=== PATIENT | female | born 1950 | race Caucasian/White ===

== ENCOUNTER 2017-08-03 13:41 | Outpatient (POV) | payer MEDICARE, SELFPAY | END 2017-08-03 16:23 | disposition home or self-care (01) | PROVIDERS: Visit Provider Podiatrist | DX: S92.352D Displaced fracture of fifth metatarsal bone, left foot, subsequent encounter for fracture with routine healing (principal); M21.379 Foot drop, unspecified foot; E11.42 Type 2 diabetes mellitus with diabetic polyneuropathy; M19.072 Primary osteoarthritis, left ankle and foot; M19.071 Primary osteoarthritis, right ankle and foot | CPT/HCPCS: 99214; 73610; 73630 ==

== ENCOUNTER → 2017-09-06 09:07 | Outpatient (POV) | payer MEDICARE, SELFPAY | PROVIDERS: Visit Provider Nurse Practitioner Acute Care | DX: Z00.00 Encounter for general adult medical examination without abnormal findings (principal) ==

== ENCOUNTER → 2017-09-08 19:58 | Outpatient (CLI) | payer MEDICARE, SELFPAY | PROVIDERS: PCP Internal Medicine Cardiovascular Disease; Visit Provider Internal Medicine Adolescent Medicine | DX: G47.30 Sleep apnea, unspecified (principal); I10 Essential (primary) hypertension | CPT/HCPCS: 95810 ==

== ENCOUNTER 2017-10-11 11:21 | Day surgery (SDC) | payer MEDICARE, SELFPAY ==
[2017-10-07 14:29] VITALS: BMI 35.2
[2017-10-11] VITALS (7 sets, daily range): BP systolic 113–149; BP diastolic 66–90; PULSE 59–73; RESP 16–18; TEMP 36.5–37; O2SAT 98–100; BMI 35.2
--- NOTE | 2017-10-11 12:04 | HMH.ANESCL ---
[facility] Anesthesia Checklist - Patient Identification Patient Identification: Arm Band, Verbal (Name & ) - Structural Data Admitted From: Home Planned Operative Procedure/s: egd/colon Consent for Planned Operative Procedure(s) Verified: Yes Verified Documents: Surgical Consent, History and Physical - NPO Status Verified Time NPO: 00:00 - Additional verifications Patient : No Anesthesia Reactions: No Hx Blood Transfusions: No Blood Transfusion Reaction: No Cephalosporin Allergy: No Previous Colonoscopy: No - Cardiovascular Assessment Heart Sounds: S1 & S2 Pulse Strength: Baseline Pulse Rhythm: Regular Peripheral Edema: No - Airway Assessment C-Spine Mobility Assessed: Yes TMJ Mobility Assessed: Yes Dentition: Good Dentition - Neurological Assessment Level of Consciousness: Awake, Alert, Appropriate Hx Seizures: No Numbness or tingling in extremities: No - Anesthesia Plan Anesthesia Risk discussed: Yes Anesthesia Plan: Verified ASA Class: III Anesthesia Type: MAC [facility] Anesthesia HX I have reviewed the patient's past medical history: Yes Medical History: Reports:: Congestive Heart Failure, Diabetes Mellitus Type 2, Gastroesophageal Reflux Disease(GERD), Hyperlipidemia, Hypertension (pulmonary hyptertension), Lung Disease (sleep apnea, uses cpap) Denies:: Internal Pacemaker Other Surgeries: Yes: Dilation and Curettage, Tubal Ligation, Other (back fusionx3, cervical neck). No: Pacemaker Amputation: No Fractures: No *Family Hx:: Coronary Artery Disease, Heart Attack
--- NOTE | 2017-10-11 13:21 | HMH.PROC ---
[facility] Procedure Note Procedure Note:: Upper Endoscopy Procedure Report: Esophagogastroduodenoscopy with cold biopsies Endoscopost: Bernabe Stein II, MD Referring Physician: Shine Bassett M.D. Date of Procedure: October 11, 2017 Equipment: Olympus GIF 180 standard upper endoscope Sedation: MAC sedation Indications: Mrs. Shell is a 67-year-old female who is here for diagnostic panendoscopy secondary to iron deficiency anemia. She had a hemoglobin of 8.9. She does have renal insufficiency with a glomerular filtration rate of 28. She had fecal Hemoccult testing ?3 that was negative. She was referred for panendoscopy. Her last EGD was 10 years ago and her last colonoscopy was 3 years ago. She has not seen a neurologist to my knowledge. She had been followed by Dr. Nawaf Tang gastroenterology and had an ulcer found more than 20 years ago. She was placed on Prilosec/omeprazole at that time and has continued this as long-term maintenance. The patient's last colonoscopy was 3-4 years ago and she had polyps removed. The patient does take baby aspirin. She reports no NSAIDs or anticoagulation. She reports no heartburn, reflux, melena, abdominal pain, nausea, dysphagia, dyspepsia or weight loss. She reports no bright red rectal bleeding, change in her bowel habits or family history of colon cancer. Procedure: Prior to the procedure, a history and physical exam was performed, and patient's medications and allergies were reviewed. The risks, benefits and alternatives of the sedation and procedure were discussed with the patient. All questions were answered and informed consent was obtained. The patient was brought to the procedure room. Patient identification and proposed procedure were verified by the physician and the nurse. The patient was placed in a left lateral decubitus position and the scope was passed under direct vision. Throughout the procedure, the patient's blood pressure, pulse, and oxygen saturations were monitored continuously. The upper GI endoscopy was accomplished without difficulty. The patient tolerated the procedure well. Findings: The scope was passed directly into the upper esophagus and advanced to the third portion of the duodenum. The post bulbar duodenum and duodenal bulb were normal with normal mucosa and conniventes. Cold biopsies were taken from the post bulbar duodenum to rule out celiac disease. The scope was withdrawn through a normal duodenal bulb and pylorus into the stomach. There was bile reflux with mild linear reactive antritis. The remainder of the antrum, body and fundus of the stomach were grossly normal. Upon retroflexion there was very small 1-2 cm sliding hiatal hernia. There were no Addi's erosions.. 2 biopsies were taken in the antrum and along the lesser curvature for histology to rule out gastritis and/or H pylori. The scope was then withdrawn into the esophagus. There was no evidence of reflux esophagitis or Crocker's. The remainder of the esophageal mucosa was normal. Impression: 1. Minimal linear reactive antritis with bile reflux 2. Very small sliding hiatal hernia without Addi's erosions Plan: There was no source of anemia or iron deficiency. I will proceed with colonoscopy. Her Hemoccult testing is negative. Some of her anemia is likely related to anemia of renal insufficiency.
--- NOTE | 2017-10-11 13:25 | P.PCN_ITS ---
[facility] Procedure Note Procedure Note:: Upper Endoscopy Procedure Report: Esophagogastroduodenoscopy with cold biopsies Endoscopost: Bernabe Stein II, MD Referring Physician: Shine Bassett M.D. Date of Procedure: October 11, 2017 Equipment: Olympus GIF 180 standard upper endoscope Sedation: MAC sedation Indications: Mrs. Shell is a 67-year-old female who is here for diagnostic panendoscopy secondary to iron deficiency anemia. She had a hemoglobin of 8.9. She does have renal insufficiency with a glomerular filtration rate of 28. She had fecal Hemoccult testing ?3 that was negative. She was referred for panendoscopy. Her last EGD was 10 years ago and her last colonoscopy was 3 years ago. She has not seen a neurologist to my knowledge. She had been followed by Dr. Nawaf Tang gastroenterology and had an ulcer found more than 20 years ago. She was placed on Prilosec/omeprazole at that time and has continued this as long-term maintenance. The patient's last colonoscopy was 3- 4 years ago and she had polyps removed. The patient does take baby aspirin. She reports no NSAIDs or anticoagulation. She reports no heartburn, reflux, melena, abdominal pain, nausea, dysphagia, dyspepsia or weight loss. She reports no bright red rectal bleeding, change in her bowel habits or family history of colon cancer. Procedure: Prior to the procedure, a history and physical exam was performed, and patient' s medications and allergies were reviewed. The risks, benefits and alternatives of the sedation and procedure were discussed with the patient. All questions were answered and informed consent was obtained. The patient was brought to the procedure room. Patient identification and proposed procedure were verified by the physician and the nurse. The patient was placed in a left lateral decubitus position and the scope was passed under direct vision. Throughout the procedure, the patient's blood pressure, pulse, and oxygen saturations were monitored continuously. The upper GI endoscopy was accomplished without difficulty. The patient tolerated the procedure well. Findings: The scope was passed directly into the upper esophagus and advanced to the third portion of the duodenum. The post bulbar duodenum and duodenal bulb were normal with normal mucosa and conniventes. Cold biopsies were taken from the post bulbar duodenum to rule out celiac disease. The scope was withdrawn through a normal duodenal bulb and pylorus into the stomach. There was bile reflux with mild linear reactive antritis. The remainder of the antrum , body and fundus of the stomach were grossly normal. Upon retroflexion there was very small 1-2 cm sliding hiatal hernia. There were no Addi's erosions.. 2 biopsies were taken in the antrum and along the lesser curvature for histology to rule out gastritis and/or H pylori. The scope was then withdrawn into the esophagus. There was no evidence of reflux esophagitis or Crocker's. The remainder of the esophageal mucosa was normal. Impression: 1. Minimal linear reactive antritis with bile reflux 2. Very small sliding hiatal hernia without Addi's erosions Plan: There was no source of anemia or iron deficiency. I will proceed with colonoscopy. Her Hemoccult testing is negative. Some of her anemia is likely related to anemia of renal insufficiency.
--- NOTE | 2017-10-11 13:25 | HMH.PROC ---
[facility] Procedure Note Procedure Note:: Colonoscopy Procedure Report: Colonoscopy with cold snare polypectomy Endoscopist: Bernabe Stein II, MD Referring physician: Shine Bassett M.D. Date of Procedure: October 11, 2017 Equipment: Olympus 180 variable stiffness pediatric colonoscope Sedation: MAC sedation Indication: Mrs. Shell is a 67-year-old female who is here for diagnostic panendoscopy secondary to iron deficiency anemia. She had a hemoglobin of 8.9. She does have renal insufficiency with a glomerular filtration rate of 28. She had fecal Hemoccult testing ?3 that was negative. She was referred for panendoscopy. Her last EGD was 10 years ago and her last colonoscopy was 3 years ago. She has not seen a neurologist to my knowledge. She had been followed by Dr. Nawaf Tang gastroenterology and had an ulcer found more than 20 years ago. She was placed on Prilosec/omeprazole at that time and has continued this as long-term maintenance. The patient's last colonoscopy was 3-4 years ago and she had polyps removed. The patient does take baby aspirin. She reports no NSAIDs or anticoagulation. She reports no heartburn, reflux, melena, abdominal pain, nausea, dysphagia, dyspepsia or weight loss. She reports no bright red rectal bleeding, change in her bowel habits or family history of colon cancer. Procedure: Prior to the procedure, a history and physical exam was performed, and patient's medications and allergies were reviewed. The risks, benefits and alternatives of the sedation and procedure were discussed with the patient. All questions were answered and informed consent was obtained. The patient was brought to the procedure room. Patient identification and proposed procedure were verified by the physician and the nurse. The patient was placed in a left lateral decubitus position and the scope was passed under direct vision. Throughout the procedure, the patient's blood pressure, pulse, and oxygen saturations were monitored continuously. The colonoscopy was accomplished without difficulty. The patient tolerated the procedure well. Findings: On digital rectal examination there was normal rectal tone. There were no external hemorrhoids. The colonoscope was introduced through the anal canal to the rectum and advanced to the cecum. The ileocecal valve and appendiceal orifice were identified. The scope was advanced a short distance into the ileum which appeared grossly normal. The scope was then withdrawn into the colon. There were 6 colon polyps identified in the ascending ?3, descending ?2 and sigmoid ?1. These ranged in size from 5-12 mm and were all removed via cold snare polypectomy. The remaining cecum, ascending, transverse, descending, sigmoid and rectum were grossly normal. There were no other mucosal abnormalities identified. Upon retroflexion within the rectum there were grade 1 internal hemorrhoids. Impression: 1. Colonic polyps ?6 2. Grade 1 internal hemorrhoids Plan: I will follow up the polyp pathology and recommend repeat colonoscopy again in 3 years based upon the polyp histology. I did not see an etiology for her iron deficiency anemia. I do feel that most of her anemia is secondary to renal insufficiency. She is Hemoccult negative and I am not convinced that she requires video capsule enteroscopy. We will discuss the findings and if the patient has recurrent iron deficiency after repletion, I would then consider video capsule enteroscopy.
--- NOTE | 2017-10-11 13:40 | P.PCN_ITS ---
[facility] Procedure Note Procedure Note:: Colonoscopy Procedure Report: Colonoscopy with cold snare polypectomy Endoscopist: Bernabe Stein II, MD Referring physician: Shine Bassett M.D. Date of Procedure: October 11, 2017 Equipment: Olympus 180 variable stiffness pediatric colonoscope Sedation: MAC sedation Indication: Mrs. Shell is a 67-year-old female who is here for diagnostic panendoscopy secondary to iron deficiency anemia. She had a hemoglobin of 8.9. She does have renal insufficiency with a glomerular filtration rate of 28. She had fecal Hemoccult testing ?3 that was negative. She was referred for panendoscopy. Her last EGD was 10 years ago and her last colonoscopy was 3 years ago. She has not seen a neurologist to my knowledge. She had been followed by Dr. Nawaf Tang gastroenterology and had an ulcer found more than 20 years ago. She was placed on Prilosec/omeprazole at that time and has continued this as long-term maintenance. The patient's last colonoscopy was 3- 4 years ago and she had polyps removed. The patient does take baby aspirin. She reports no NSAIDs or anticoagulation. She reports no heartburn, reflux, melena, abdominal pain, nausea, dysphagia, dyspepsia or weight loss. She reports no bright red rectal bleeding, change in her bowel habits or family history of colon cancer. Procedure: Prior to the procedure, a history and physical exam was performed, and patient' s medications and allergies were reviewed. The risks, benefits and alternatives of the sedation and procedure were discussed with the patient. All questions were answered and informed consent was obtained. The patient was brought to the procedure room. Patient identification and proposed procedure were verified by the physician and the nurse. The patient was placed in a left lateral decubitus position and the scope was passed under direct vision. Throughout the procedure, the patient's blood pressure, pulse, and oxygen saturations were monitored continuously. The colonoscopy was accomplished without difficulty. The patient tolerated the procedure well. Findings: On digital rectal examination there was normal rectal tone. There were no external hemorrhoids. The colonoscope was introduced through the anal canal to the rectum and advanced to the cecum. The ileocecal valve and appendiceal orifice were identified. The scope was advanced a short distance into the ileum which appeared grossly normal. The scope was then withdrawn into the colon. There were 6 colon polyps identified in the ascending ?3, descending ?2 and sigmoid ?1. These ranged in size from 5-12 mm and were all removed via cold snare polypectomy. The remaining cecum, ascending, transverse, descending, sigmoid and rectum were grossly normal. There were no other mucosal abnormalities identified. Upon retroflexion within the rectum there were grade 1 internal hemorrhoids. Impression: 1. Colonic polyps ?6 2. Grade 1 internal hemorrhoids Plan: I will follow up the polyp pathology and recommend repeat colonoscopy again in 3 years based upon the polyp histology. I did not see an etiology for her iron deficiency anemia. I do feel that most of her anemia is secondary to renal insufficiency. She is Hemoccult negative and I am not convinced that she requires video capsule enteroscopy. We will discuss the findings and if the patient has recurrent iron deficiency after repletion, I would then consider video capsule enteroscopy.
[2017-10-21 14:59] LABS: POC Glucose,Bedside 142 mg/dL (70-110)
== END 2017-10-11 14:40 | disposition home or self-care (01) ==
LOC: OUTP 11:26
PROVIDERS: PCP Internal Medicine Cardiovascular Disease; Visit Provider Internal Medicine Gastroenterology
PROC: 0DJ08ZZ Inspection of Upper Intestinal Tract, Via Natural or Artificial Opening Endoscopic (ICD-10-PCS; CPT 43235; principal; 2017-10-11 12:30)
DX: K29.60 Other gastritis without bleeding (principal); K21.9 Gastro-esophageal reflux disease without esophagitis; K44.9 Diaphragmatic hernia without obstruction or gangrene; D50.9 Iron deficiency anemia, unspecified; N28.9 Disorder of kidney and ureter, unspecified; Z79.899 Other long term (current) drug therapy; Z79.82 Long term (current) use of aspirin
CPT/HCPCS: 43239; 82962; 88305; 88342

== ENCOUNTER → 2017-10-15 13:01 | Outpatient (CLI) | payer MEDICARE, SELFPAY ==
--- NOTE | 2017-10-15 13:13 | XR_ITS ---
XR DEXA axial skeleton HISTORY: ITS.REASON: POST MENOPAUSSAL ORDERING PHYSICIAN: Shine Bassett MD PATIENT AGE: 67 years COMPARISON: None FINDINGS: The spine density was not performed due to metal within the spine. The BMD measured at the Right femoral neck is 1.023 g/cm squared with a T score of -0.1. This is considered normal according to the World Health Organization criteria. Fracture risk is low. Recommend follow-up exam September 2019 IMPRESSION: Normal bone density
== END ==
PROVIDERS: PCP Internal Medicine Cardiovascular Disease; Visit Provider Internal Medicine Adolescent Medicine
DX: Z78.0 Asymptomatic menopausal state (principal); Z13.820 Encounter for screening for osteoporosis
CPT/HCPCS: 77080

== ENCOUNTER → 2018-03-22 10:51 | Outpatient (CLI) | payer MEDICARE, SELFPAY ==
--- NOTE | 2018-03-22 10:56 | MM_ITS ---
MM Dig screening mamm BI w/CAD ORDERING PHYSICIAN : Shine Bassett MD PATIENT AGE: 67 years GENDER: Female COMPARISON: December 2014 & January 2016 bilateral mammogram study also June 2012 INDICATION: ITS.REASON: SCREENING 67-year-old no hormones no new complaints noncontributory family history TECHNIQUE: Standard CC and MLO images were obtained. R2 CAD reviewed. Low-density breast with no new areas concern. No dominant mass nor suspicious calcification. Computer-assisted review highlights no areas of concern either. Bilateral follow-up in one year adequate . IMPRESSION: Stable bilateral mammogram no areas concern. Bilateral follow-up in one year recommended. BI-RADS Category: 1 Negative RECOMMENDED FOLLOW-UP: 1YR 1 YEAR FOLLOW-UP (A letter has been sent to the patient regarding results of the study.)
== END ==
PROVIDERS: PCP Internal Medicine Adolescent Medicine; Visit Provider Internal Medicine Adolescent Medicine
DX: Z12.31 Encounter for screening mammogram for malignant neoplasm of breast (principal)
CPT/HCPCS: 77067

== ENCOUNTER → 2018-09-06 10:50 | Outpatient (POV) | payer MEDICARE, SELFPAY | PROVIDERS: Visit Provider Dermatology | DX: Z00.00 Encounter for general adult medical examination without abnormal findings (principal) ==

== ENCOUNTER → 2018-09-27 11:38 | Outpatient (POV) | payer MEDICARE, SELFPAY | PROVIDERS: Visit Provider Dermatology | DX: Z00.00 Encounter for general adult medical examination without abnormal findings (principal) ==

== ENCOUNTER → 2018-11-29 14:14 | Outpatient (POV) | payer MEDICARE, SELFPAY | PROVIDERS: Visit Provider Dermatology | DX: Z00.00 Encounter for general adult medical examination without abnormal findings (principal) ==

== ENCOUNTER → 2019-06-09 10:57 | Outpatient (CLI) | payer MEDICARE, SELFPAY ==
--- NOTE | 2019-06-09 11:01 | MM_ITS ---
PROCEDURE: MM DIG SCREENING MAMM BI W/CAD CLINICAL INDICATION: SCREENING There is no personal or family history of breast cancer. COMPARISON: [facility] DIG MAMM-SCREEN LUISA from 01/09/2015 [facility] DIG MAMM-SCREEN LUISA from 02/13/2016 [facility] MM Dig screening mamm BI w/CAD from 03/22/2018 TECHNIQUE: Standard CC and MLO images were obtained. R2 CAD reviewed. FINDINGS: The breasts are composed primarily of fat with scattered fibroglandular densities in both breasts. There are multiple mole markers left breast. There is no suspicious lesion in either breast and no suspicious microcalcifications. IMPRESSION: Fibrofatty parenchyma with no suspicious lesions seen BI-RAD Category: 2 Benign Finding(s) FOLLOW-UP: 1YR 1 Year Follow-up (A letter has been sent to the patient regarding results of the study.) Dictated by: Dr. Giovanny Haskins MD 06/09/2019 11:[address] Giovanny Haskins MD in [place] 06/09/2019 11:47
== END ==
PROVIDERS: PCP Internal Medicine Adolescent Medicine; Visit Provider Internal Medicine Adolescent Medicine
DX: Z12.31 Encounter for screening mammogram for malignant neoplasm of breast (principal)
CPT/HCPCS: 77067

== ENCOUNTER → 2019-11-15 12:56 | Outpatient (CLI) | payer MEDICARE, SELFPAY ==
--- NOTE | 2019-11-15 12:57 | CA_ITS ---
APPROVED REPORT EXAM: Comprehensive 2D, Doppler, and color-flow Echocardiogram Educational [employer] Teacher: Becky Gudino RT(R) Ht: 5 ft 5 in Wt: 256lbs BSA: 2.20 BP: 140/54 mmHg Indications: edema, HTN, diabetes, SOB, RUBALCAVA, obesity 2D Dimensions LVOT 1.98 cm (M/F) 1.5-2.5 M-Mode Dimensions RVDd 2.96 cm (0.9-2.6) LVDd 4.94 cm (3.5-5.7) LVDs 3.69 cm (3.5-5.7) IVSd 1.06 cm (0.6-1.1) PWd 0.95 cm (0.6-1.1) EF (Teich) 49.70% FS 25.30% EDV (Teich) 115.00 mL ESV (Teich) 57.80 mL LV Diastology E/A Ratio 0.88 Mitral Valve MV A Velocity 81.00 (40-130 cm/s) Left Ventricle Left atrium is mildly enlarged, left ventricle is normal size, mild concentric left ventricular hypertrophy, visually estimated ejection fraction 55% with no regional wall motion abnormality. Grade 1 diastolic dysfunction seen without tissue Doppler evidence of raise left atrial pressure. Right Ventricle Right atrium and right ventricular normal size and contractility. Aortic Valve Aortic valve is grossly normal, there is no aortic stenosis or aortic insufficiency. Mitral Valve Mitral valve is grossly normal, there is no mitral stenosis, there is mild mitral regurgitation. Tricuspid Valve Tricuspid valve is grossly normal, there is mild tricuspid regurgitation. Tricuspid regurgitation jet velocity is inadequate for calculation of the right ventricular systolic pressure. Pulmonic Valve Pulmonic valve is poorly visualized. Great Vessels Aortic root is normal size. Pericardium No significant pericardial effusion noted. Conclusion 1. Mildly enlarged left atrium, normal left ventricular size, mild concentric left ventricular hypertrophy, visually estimated ejection fraction 55% with no regional wall motion abnormality, grade 1 diastolic dysfunction seen without tissue Doppler evidence of raise left atrial pressure. 2. Mild mitral and tricuspid regurgitation. 3. No significant pericardial effusion noted. Electronically signed by : Truong Burt, 11/17/2019 11:22:21
== END ==
PROVIDERS: PCP Internal Medicine Adolescent Medicine; Visit Provider Nurse Practitioner Family
DX: E11.9 Type 2 diabetes mellitus without complications (principal); G47.33 Obstructive sleep apnea (adult) (pediatric); I27.20 Pulmonary hypertension, unspecified; I50.9 Heart failure, unspecified; N18.2 Chronic kidney disease, stage 2 (mild); R06.00 Dyspnea, unspecified; R60.0 Localized edema; Z79.4 Long term (current) use of insulin
CPT/HCPCS: 93306

== ENCOUNTER → 2019-11-23 14:21 | Outpatient (CLI) | payer MEDICARE, SELFPAY ==
--- NOTE | 2019-11-23 14:23 | XR_ITS ---
PROCEDURE: XR CHEST 2V CLINICAL HISTORY: dyspnea COMPARISON: CXR CHEST(2 VIEWS-NOT PORTABLE) from 12/21/[address] [facility] [address] CHEST W/O CONTRAST from 05/14/2017 CXR CHEST(2 VIEWS-NOT PORTABLE) from 07/28/2017 FINDINGS: The cardiomediastinal silhouette and pulmonary vascularity are within normal limits. The lungs are clear without infiltrates, suspicious nodules, or pleural effusions. No acute bony abnormalities. IMPRESSION: No acute findings. Previously described pulmonary edema has resolved. Dictated by: Yared Trinh 11/23/2019 15:40 Electronically signed by Yared Trinh in [place] 11/23/2019 15:40
== END ==
PROVIDERS: PCP Internal Medicine Adolescent Medicine; Visit Provider Internal Medicine Cardiovascular Disease
DX: E11.9 Type 2 diabetes mellitus without complications (principal); G47.33 Obstructive sleep apnea (adult) (pediatric); I11.0 Hypertensive heart disease with heart failure; I27.20 Pulmonary hypertension, unspecified; I50.33 Acute on chronic diastolic (congestive) heart failure; N18.2 Chronic kidney disease, stage 2 (mild); R06.09 Other forms of dyspnea; R60.9 Edema, unspecified; Z79.4 Long term (current) use of insulin
CPT/HCPCS: 71046

== ENCOUNTER → 2020-06-12 11:06 | Outpatient (CLI) | payer MEDICARE, SELFPAY ==
[2020-06-12 12:35] VITALS: PULSE 71; PULSE 75
== END ==
PROVIDERS: PCP Internal Medicine Adolescent Medicine; Visit Provider Internal Medicine Hematology & Oncology
DX: R06.02 Shortness of breath (principal); N18.30 Chronic kidney disease, stage 3 unspecified; D63.1 Anemia in chronic kidney disease; D47.2 Monoclonal gammopathy; D50.9 Iron deficiency anemia, unspecified
CPT/HCPCS: 94060; 94640; 94726; 94729

== ENCOUNTER → 2020-07-24 10:03 | Outpatient (CLI) | payer MEDICARE, SELFPAY ==
[2020-07-24 10:45] LABS: Basophils % 0.5 % (0.1-2.0); Eosinophils # 0.6 K/mm3 (0.0-0.4); Eosinophils % 5.8 % (0.1-12.0); Hematocrit 35.6 % (37.0-47.0); Hemoglobin 11.3 g/dL (12.2-16.2); Lymphocytes # 2.2 K/mm3 (0.7-4.5); Lymphocytes % 23.1 % (10-50); Mean Corpuscular HGB Conc 31.6 g/dL (31.8-35.4); Mean Corpuscular Hemoglobin 30.8 pg (27.0-31.2); Mean Corpuscular Volume 97.3 fl (81-99); Mean Platelet Volume 7.9 fl (7.4-10.4); Monocytes # 0.6 K/mm3 (0.1-1.0); Monocytes % 5.9 % (1.7-9.3); Neutrophils # 6.2 K/mm3 (1.8-7.8); Neutrophils % 64.8 % (37.0-80.0); Platelet Count 392 K/mm3 (142-424); Red Blood Count 3.66 M/mm3 (4.20-5.40); Red Cell Distribution Width 13.6 % (11.5-17.5); White Blood Count 9.5 K/mm3 (4.8-10.8)
[2020-07-24 12:09] LABS: Chloride 107 mmol/L (98-107); Potassium 5.1 mmoL/L (3.5-5.1); Sodium 140 mmol/L (136-145)
[2020-07-24 12:12] LABS: Blood Urea Nitrogen 40 mg/dl (7-17); Estimated Glomerular Filt Rate 24 ml/min (>60); GFR (African American) 30 ML/MIN (>60)
[2020-07-24 12:13] LABS: Anion Gap 10.1 mEq/L (5-15); Calcium 9.4 mg/dl (8.4-10.2); Carbon Dioxide 28 mmol/L (22.0-30.0); Glucose 134 mg/dl (74-100)
[2020-07-24 12:28] LABS: Coronavirus 19 IgG Antibody Negative (Negative); Coronavirus 19 IgM Antibody Negative (Negative)
== END ==
PROVIDERS: Visit Provider Internal Medicine
DX: Z01.818 Encounter for other preprocedural examination (principal); I25.10 Atherosclerotic heart disease of native coronary artery without angina pectoris
CPT/HCPCS: 36415; 80048; 85025; 86328

== ENCOUNTER → 2020-07-26 07:19 | Outpatient (CLI) | payer MEDICARE, SELFPAY ==
--- NOTE | 2020-07-26 07:23 | CT_ITS ---
PROCEDURE: CT CHEST WO CON CLINICAL INDICATION: dyspnea Dyspnea, edema, worsening shortness of air COMPARISON: [facility] CT CHEST W/O CONTRAST from 05/14/2017 TECHNIQUE: Axial images obtained with sagittal and coronal reformats. All CT scans at the facility use one or more dose reduction, viz: automated exposure control, ma/kV adjustment per patient size (including targeted exams where dose is matched to indication, i.e. head), or iterative reconstruction technique. FINDINGS: HEART AND MEDIASTINAL STRUCTURES: There is heterogeneous areas of low density in the left lobe of the thyroid gland which is enlarged with areas of decreased attenuation measuring up to 2.4 cm. There is mild deviation of the trachea toward the right. No mediastinal mass is evident. There is mild dilatation of the proximal descending thoracic aorta at 3.6 cm. This does not appear significantly changed. Coronary artery calcifications are present. There is some mild thickening of the pericardium LUNGS AND PLEURAL SPACES: There is a new 5 mm nodule within the central aspect of the right upper lobe which is seen on series 3, image 34. This is not readily apparent on the previous study. Patchy atelectatic changes are present in the right lower lobe medially adjacent to a prominent thoracic spine osteophytes. There are mild atelectatic changes in the left lower lobe posteriorly BONY STRUCTURES: There are degenerative changes in the thoracic spine and postsurgical changes in the upper lumbar spine. UPPER ABDOMEN: Multiple hepatic cysts are once again noted. Several of the up attic cysts are some larger. For instance, the largest cyst in the right hepatic lobe measures 8 cm previously measuring 5 cm ADDITIONAL FINDINGS: No other significant abnormalities. IMPRESSION: There is a new 5 mm noncalcified nodule in the right middle lobe centrally. Recommend 3 month follow-up to confirm short term stability. Enlarging hypodense lesion of the left lobe of the thyroid gland. Consider ultrasound for further evaluation. Other nonacute findings as described above. Dictated by: Marvin Jones MD 07/29/2020 13:33 Marvin Jones MD in [place] 07/29/2020 13:33
== END ==
PROVIDERS: PCP Internal Medicine Adolescent Medicine; Visit Provider Internal Medicine
DX: E11.9 Type 2 diabetes mellitus without complications (principal); G47.33 Obstructive sleep apnea (adult) (pediatric); I11.0 Hypertensive heart disease with heart failure; I27.20 Pulmonary hypertension, unspecified; I50.33 Acute on chronic diastolic (congestive) heart failure; N18.2 Chronic kidney disease, stage 2 (mild); R06.09 Other forms of dyspnea; R60.9 Edema, unspecified; Z79.4 Long term (current) use of insulin
CPT/HCPCS: 71250

== ENCOUNTER → 2020-09-02 14:08 | Outpatient (CLI) | payer MEDICARE, SELFPAY ==
--- NOTE | 2020-09-02 14:27 | US_ITS ---
PROCEDURE: US THYROID CLINICAL INDICATION: THYROID NODULE COMPARISON: CT CT CHEST WO CON from 07/26/2020 FINDINGS: Right lobe: 1.5cm x 4.0cm x 2.3cm Left lobe: 2.5cm x 5.1cm x 3.5cm Isthmus: Thickened at 9 mm with heterogeneous echogenicity Additional findings: There is diffuse heterogeneous echogenicity the thyroid gland on both sides with multiple nodules. The upper pole on the right there is a 2.4 x 1.2 cm nodule spongiform in nature TR level 1 not suspicious.. An 8 mm hypoechoic nodule noted in the upper pole. In the lower pole there is a mixed nodule at 9 mm. On the left there is a 10 mm spongiform nodule in the upper pole. In the mid polar region there is a 2.2 x 1.4 cm solid-appearing nodule slightly hyperechoic well-circumscribed without calcifications T rads level 3 less than 2.5 cm mildly suspicious recommend six-month follow-up. In addition there is a 2.8 by 3 cm mixed nodule mostly cystic in the mid polar region well-circumscribed without calcifications wider than tall TR 2 not suspicious. IMPRESSION: Bilateral thyroid nodules as described above. The mildly suspicious nodule on the left at TR level 3. Recommend six-month follow-up. Dictated by: Marvin Jones MD 09/04/2020 12:46 Marvin Jones MD in [place] 09/04/2020 12:46
[2020-09-02 18:22] LABS: NT Pro Brain Natriuretic Pep. 1810 pg/mL (0-125)
[2020-09-03 12:33] LABS: Chloride 103 mmol/L (98-107)
[2020-09-03 12:34] LABS: Basophils # 0.1 K/mm3 (0-0.2); Basophils % 0.9 % (0.1-2.0); Eosinophils # 0.4 K/mm3 (0.0-0.4); Eosinophils % 3.7 % (0.1-12.0); Hemoglobin 12.1 g/dL (12.2-16.2); Lymphocytes # 2.6 K/mm3 (0.7-4.5); Mean Corpuscular HGB Conc 30.9 g/dL (31.8-35.4); Mean Corpuscular Hemoglobin 31.6 pg (27.0-31.2); Mean Corpuscular Volume 102.5 fl (81-99); Mean Platelet Volume 9.7 fl (7.4-10.4); Monocytes # 0.4 K/mm3 (0.1-1.0); Monocytes % 3.9 % (1.7-9.3); Neutrophils # 7.8 K/mm3 (1.8-7.8); Neutrophils % 68.5 % (37.0-80.0); Platelet Count 395 K/mm3 (142-424); Potassium 4.6 mmoL/L (3.5-5.1); Red Blood Count 3.81 M/mm3 (4.20-5.40); Red Cell Distribution Width 13.4 % (11.5-17.5); Sodium 139 mmol/L (136-145); White Blood Count 11.4 K/mm3 (4.8-10.8)
[2020-09-03 12:36] LABS: Alanine Aminotransferase 14 U/L (12-78); Alkaline Phosphatase 133 U/L (38-126); Aspartate Amino Transferase 20 U/L (14-36); Bilirubin,Total 0.6 mg/dl (0.2-1.3); Blood Urea Nitrogen 48 mg/dl (7-17); Estimated Glomerular Filt Rate 23 ml/min (>60); GFR (African American) 28 ML/MIN (>60)
[2020-09-03 12:37] LABS: Albumin Level 4.1 g/dl (3.5-5.0); Albumin/Globulin Ratio 1.3 (1.1-1.8); Anion Gap 11.6 mEq/L (5-15); Calcium 9.7 mg/dl (8.4-10.2); Carbon Dioxide 29 mmol/L (22.0-30.0); Globulin 3.1 g/dL (1.3-3.2); Glucose 224 mg/dl (74-100); Total Protein,Serum 7.2 g/dl (6.3-8.2)
[2020-09-03 13:49] LABS: Triiodothryronine (T3) Uptake 32 % (23.5-40.5)
[2020-09-03 13:50] LABS: Free Thyroxine Index 1.6 ug/dL (5.93-13.13)
[2020-09-03 14:04] LABS: Thyroid Stimulating Hormone 1.46 uIU/mL (0.465-4.68)
== END ==
PROVIDERS: Internal Medicine Cardiovascular Disease; PCP Internal Medicine Adolescent Medicine; Visit Provider Internal Medicine Adolescent Medicine
DX: E11.9 Type 2 diabetes mellitus without complications (principal); G47.33 Obstructive sleep apnea (adult) (pediatric); I11.9 Hypertensive heart disease without heart failure; N18.2 Chronic kidney disease, stage 2 (mild); R06.00 Dyspnea, unspecified; R60.9 Edema, unspecified; I27.20 Pulmonary hypertension, unspecified; I50.9 Heart failure, unspecified; E04.1 Nontoxic single thyroid nodule; Z79.4 Long term (current) use of insulin
CPT/HCPCS: 36415; 76536; 80053; 83880; 84436; 84443; 84479; 85025

== ENCOUNTER → 2020-10-28 10:57 | Outpatient (CLI) | payer MEDICARE, SELFPAY ==
--- NOTE | 2020-10-28 10:57 | CT_ITS ---
PROCEDURE: CT CHEST WO CON CLINICAL INDICATION: ILD High resolution scan COMPARISON: CT [facility] CT CHEST W/O CONTRAST from 05/14/[address] CHEST WO CON from 07/26/2020 TECHNIQUE: Axial images obtained with sagittal and coronal reformats. All CT scans at the facility use one or more dose reduction, viz: automated exposure control, ma/kV adjustment per patient size (including targeted exams where dose is matched to indication, i.e. head), or iterative reconstruction technique. FINDINGS: Coronary artery calcifications are present. No mediastinal or hilar mass. Borderline cardiomegaly. Minimal pericardial thickening anteriorly. There is a left thyroid nodule which measures 2.8 cm not significantly changed. There is evidence of old granulomatous disease. A 6 mm noncalcified nodule present in the right upper lobe in the perihilar region unchanged. The nodule appears slightly more prominent compared to the previous exam. This may be too small to be visualized by PET CT. Close follow-up is suggested. There is mild pleural thickening in the right midlung laterally. There is some scarring in the right lung base medially and posteriorly and in the left lung base laterally. High-resolution inspiration expiration and prone images are obtained. Fibrotic changes are present in the lung bases with some minimal bronchiectasis in the lower lobes medially. No significant interlobular septal thickening apparent. Upper abdominal images show multiple hepatic cysts and left renal cysts. The right kidney is not imaged. There are degenerative changes in the thoracic spine. Postsurgical changes are present in the upper lumbar spine.. IMPRESSION: 1. No convincing evidence of interstitial lung disease. 2. Fibrotic changes in the lung bases with some mild bronchiectasis in the posterior basilar segments of both lower lobes. 3. 6 mm right upper lobe pulmonary nodule which appears slightly more prominent. This nodule was not present on a older exam of 05/14/2017. Neoplasm or inflammatory nodule is considered. Close follow-up recommended. Dictated by: Marvin Jones MD 10/30/2020 10:01 Marvin Jones MD in [facility] 10/30/2020 10:01
== END ==
PROVIDERS: PCP Internal Medicine Adolescent Medicine; Visit Provider Internal Medicine Pulmonary Disease
DX: J98.4 Other disorders of lung (principal)
CPT/HCPCS: 71250

== ENCOUNTER → 2020-12-10 14:07 | Outpatient (POV) | payer MEDICARE, SELFPAY | PROVIDERS: Visit Provider Dermatology | DX: Z00.00 Encounter for general adult medical examination without abnormal findings (principal) ==

== ENCOUNTER → 2020-12-16 10:23 | Outpatient (CLI) | payer MEDICARE, SELFPAY ==
--- NOTE | 2020-12-16 10:27 | XR_ITS ---
PROCEDURE: XR DEXA AXIAL SKELETON CLINICAL HISTORY: POST-MENOPAUSAL, SCREENING COMPARISON: [facility] DEXAAX XR DEXA axial skeleton from 10/15/2017 FINDINGS: The right hip BMD is 0.854 with a T-score of 0.0. The left hip BMD is 0.976 with a T-score of 0.3. The left forearm BMD is 0.654 with a T-score of -0.7. Previously the lowest density was in the right femoral neck with a T-score of -0.1. IMPRESSION: This patient is considered normal according to the World Health Organization criteria. Fracture risk is low. Based on these results a follow-up exam is recommended in 2 year. Dictated by: Marvin Jones MD 12/17/2020 06:24 Marvin Jones MD in [facility] 12/17/2020 06:24
== END ==
PROVIDERS: PCP Internal Medicine Adolescent Medicine; Visit Provider Internal Medicine Adolescent Medicine
DX: Z78.0 Asymptomatic menopausal state (principal)
CPT/HCPCS: 77080

== ENCOUNTER 2021-01-18 09:04 | Emergency (ER) | payer MEDICARE, SELFPAY ==
[2021-01-18] VITALS (7 sets, daily range): BP systolic 126–178; BP diastolic 43–61; PULSE 59–65; RESP 18; TEMP 36.7; O2SAT 94–100; BMI 39.4
--- NOTE | 2021-01-18 09:14 | ECG_ITS ---
APPROVED REPORT Exam: Resting ECG HR:62 bpm ECG Measurements Heart Rate 62 AXES WY 178 P 5 QRSd 96 QRS -28 QT 432 T 33 QTc 438 Conclusion Normal sinus rhythm LVH with LAFB Abnormal ECG Electronically signed by : Shine Bassett, 01/19/2021 07:54:01
--- NOTE | 2021-01-18 09:22 | HMH.EDGENADL ---
ED Disposition Clinical Impression: Vertigo Disposition: Home, Self-Care Condition on Discharge: Fair Instructions: DI for Vertigo Additional Instructions: Meclizine and Valium as prescribed. Stand and walk carefully, hold onto objects/montes to support himself. Return to the emergency room if symptoms worsen, unable to ambulate. Follow-up with your primary care provider on Wednesday. Additional instructions for CONTROLLED SUBSTANCES: You have been prescribed a medication that is a controlled substance. Controlled substances include pain medications known as opiates and sedative nerve medications known as benzodiazepines. Tramadol, fioricet, and gabapentin are also controlled substances. Some common opiates include: Codeine (such as Tylenol #3) Hydrocodone (Vicodin, Lortab, Lorcet, [place]) Oxycodone (Percocet, Percodan, Oxycodone, Oxy IR) Some common benzodiazepines include: Diazepam (Valium) Lorazepam (Ativan) Alprazolam (Xanax) Clonazepam (Klonopin) Oxazepam (Serax) All of these controlled substances are highly addictive and frequently abused. Misuse can and frequently does lead to addiction as well as overdose and . Medication should be stored in a locked cabinet or other secure storage unit. Do not store the medication in a motor vehicle. Short term supplies, 3 days or less, are prescribed because of the highly addictive nature of the medication. Any of the controlled substance medication NOT taken should be disposed of properly and NOT SAVED. The recommended method of disposing of unused medications is: Place the medicines in a sealable plastic bag. If the medicine is a solid, crush it or add water to dissolve it. Add something undesirable (cat litter, coffee grounds, etc.) Dispose of sealed bag in household trash Do not flush or pour unused medicines down a sink or drain. Controlled substances should not be shared, given away or sold. Because of the addictive nature and frequent abuse, these medications are sometimes stolen. These medications should be kept in a safe place where they cannot be stolen. Do not keep them in your car or purse. Lost or stolen prescriptions for controlled substances WILL NOT BE REFILLED in this emergency department, regardless of whether a police report was filed. Prescriptions: Meclizine HCl [Antivert 25mg tablet] 25 mg PO TIDP PRN #15 tab PRN Reason: Vertigo Transmission Status: Pending to Mobile Location, IP #[id number] diazePAM [Diazepam 2mg tablets] 2 mg PO TIDP PRN #15 tab PRN Reason: Vertigo Transmission Status: Received by Mobile Location, IP #[id number] Referrals: Shine Bassett MD [Primary Care Provider] - - Critical Care Critical Care Time: No Attestation: On 01/18/21, the high probability of a clinically significant, sudden or life threatening deterioration of the following system(s) required my full and direct attention, intervention and personal management. The time I documented below is in addition to time spent performing reported procedures but includes the following listed in this critical care notation. Medical Decision Making - Andrae Inquiry Pt receiving controlled substance: Yes Andrae was queried for this patient: Yes Risks and benefits of using a controlled substance: were discussed with pt by me Vital Signs: 01/18/21 09:06 01/18/21 09:30 01/18/21 09:31 Temperature 98.1 F Temperature Source Oral Pulse Rate 61 62 Pulse Rate [Left Radial] 65 Respiratory Rate 18 Blood Pressure 149/61 H Blood Pressure [Right Arm] 178/60 H Blood Pressure Mean [Right Arm] 99 02 Sat by Pulse Oximetry 100 96 96 Oxygen Delivery Method Room Air Room Air 01/18/21 10:02 01/18/21 10:30 01/18/21 10:45 Temperature Temperature Source Pulse Rate 64 59 L 60 Pulse Rate [Left Radial] Respiratory Rate Blood Pressure 126/43 L 128/51 L 134/55 L Blood Pressure [Right Arm] Blood Pressure Mean [Right Arm] 02 Sat by Pul
--- NOTE | 2021-01-18 09:28 | XR_ITS ---
PROCEDURE INFORMATION: Exam: XR Chest Exam date and time: 01/18/2021 9:28 AM Age: 70 years old Clinical indication: Other: Dizziness TECHNIQUE: Imaging protocol: XR of the chest. Views: 2 views. COMPARISON: CT CHEST WO CON 10/28/2020 11:07 AM FINDINGS: Lungs: No consolidation. Pleural spaces: No pleural effusion. No pneumothorax. Heart/Mediastinum: The heart is upper limits of normal in size. Vasculature: The aorta is slightly tortuous. Bones/joints: There is limited assessment of lumbar spinal surgery. There are degenerative changes of the spine. IMPRESSION: There is no evidence of active pulmonary disease.
[2021-01-18 09:36] LABS: Basophils # 0.1 K/mm3 (0-0.2); Basophils % 0.5 % (0.1-2.0); Eosinophils # 0.4 K/mm3 (0.0-0.4); Hematocrit 30.4 % (37.0-47.0); Hemoglobin 10.4 g/dL (12.2-16.2); Lymphocytes # 2.5 K/mm3 (0.7-4.5); Lymphocytes % 23.3 % (10-50); Mean Corpuscular Hemoglobin 31.7 pg (27.0-31.2); Mean Corpuscular Volume 93.3 fl (81-99); Mean Platelet Volume 8.5 fl (7.4-10.4); Monocytes # 0.6 K/mm3 (0.1-1.0); Monocytes % 5.2 % (1.7-9.3); Platelet Count 381 K/mm3 (142-424); Red Blood Count 3.26 M/mm3 (4.20-5.40); Red Cell Distribution Width 13.6 % (11.5-17.5); White Blood Count 10.5 K/mm3 (4.8-10.8)
[2021-01-18 09:41] LABS: Anion Gap 11.8 mEq/L (5-15); Blood Urea Nitrogen 62 mg/dl (7-17); Calcium 8.9 mg/dl (8.4-10.2); Carbon Dioxide 25 mmol/L (22.0-30.0); Chloride 106 mmol/L (98-107); Creatinine Clearance Estimated 31 mL/min (50-200); Estimated Glomerular Filt Rate 17 ml/min (>60); GFR (African American) 21 ML/MIN (>60); Glucose 116 mg/dl (74-100); Potassium 4.8 mmoL/L (3.5-5.1); Sodium 138 mmol/L (136-145)
--- NOTE | 2021-01-18 09:45 | CT_ITS ---
PROCEDURE INFORMATION: Exam: CT Head Without Contrast Exam date and time: 01/18/2021 9:45 AM Age: 70 years old Clinical indication: Patient HX: Dizziness and nausea x 3days TECHNIQUE: Imaging protocol: Computed tomography of the head without contrast. Radiation optimization: All CT scans at this facility use at least one of these dose optimization techniques: automated exposure control; mA and/or kV adjustment per patient size (includes targeted exams where dose is matched to clinical indication); or iterative reconstruction. COMPARISON: No relevant prior studies available. FINDINGS: Brain: There is white matter hypodensity most consistent with chronic small vessel ischemic change. There are small foci of low attenuation in the basal ganglia bilaterally related to chronic lacunar infarctions. Cerebral ventricles: The ventricles and CSF spaces are normal in size for age. Paranasal sinuses: Visualized sinuses are unremarkable. No fluid levels. Mastoid air cells: Visualized mastoid air cells are well aerated. Vasculature: There is atherosclerotic disease involving the vertebral basilar system and cavernous ICAs. Bones/joints: No acute fracture. Soft tissues: Unremarkable. IMPRESSION: 1. Sequela prior small vessel ischemic changes. 2. No acute intracranial
[2021-01-18 09:54] LABS: Troponin I < 0.01 ng/ml (0.00-0.034)
--- NOTE | 2021-01-18 10:00 | PC.NURSE ---
Pt returned from rad.
--- NOTE | 2021-01-18 11:20 | PC.NURSE ---
Pt's sister is on her way to pick pt up.
== END 2021-01-18 11:32 | disposition home or self-care (01) ==
PROVIDERS: Emergency Provider Emergency Medicine; PCP Internal Medicine Adolescent Medicine
DX: R42 Dizziness and giddiness (principal); E11.9 Type 2 diabetes mellitus without complications; N18.30 Chronic kidney disease, stage 3 unspecified; K21.9 Gastro-esophageal reflux disease without esophagitis; E78.5 Hyperlipidemia, unspecified; I10 Essential (primary) hypertension; Z79.899 Other long term (current) drug therapy
CPT/HCPCS: 70450; 71046; 80048; 84484; 85025; 93005; 96374; 96375; 99282; J2405

== ENCOUNTER → 2021-01-23 10:21 | Outpatient (CLI) | payer MEDICARE, SELFPAY ==
[2021-01-23 11:57] LABS: Erythrocyte Sedimentation Rate > 140 mm/hr (0-30); Uric Acid 6.8 mg/dl (2.5-6.2)
[2021-01-23 12:02] LABS: C-Reactive Protein 17.5 mg/L (0-4)
[2021-01-23 12:08] LABS: NT Pro Brain Natriuretic Pep. 1380 pg/mL (0-125)
[2021-01-24 11:16] LABS: RA Latex Turbid. <10.0 IU/mL (0.0-13.9)
[2021-01-24 13:52] LABS: Sjogren's Anti-SS-A <0.2 AI (0.0-0.9); Sjogren's Anti-SS-B <0.2 AI (0.0-0.9)
[2021-01-24 17:32] LABS: Cytoplasmic (C-ANCA) <1:20 titer (Neg:<1:20); Perinuclear (P-ANCA) <1:20 titer (Neg:<1:20)
[2021-01-25 18:59] LABS: Antinuclear Antibodies, IFA Negative (.)
[2021-02-09 10:52] LABS: Antinuclear Antibodies (ANA) NEGATIVE
== END ==
PROVIDERS: Internal Medicine Pulmonary Disease; PCP Internal Medicine Adolescent Medicine; Visit Provider Internal Medicine Cardiovascular Disease
DX: E11.9 Type 2 diabetes mellitus without complications (principal); G47.33 Obstructive sleep apnea (adult) (pediatric); I11.9 Hypertensive heart disease without heart failure; I27.20 Pulmonary hypertension, unspecified; I50.9 Heart failure, unspecified; N18.2 Chronic kidney disease, stage 2 (mild); R06.00 Dyspnea, unspecified; R42 Dizziness and giddiness; R60.9 Edema, unspecified; J84.9 Interstitial pulmonary disease, unspecified; J98.4 Other disorders of lung; Z79.84 Long term (current) use of oral hypoglycemic drugs
CPT/HCPCS: 36415; 83880; 84550; 85651; 86038; 86140; 86235; 86256; 86431; 93225

== ENCOUNTER → 2021-02-10 10:34 | Outpatient (CLI) | payer MEDICARE, SELFPAY ==
--- NOTE | 2021-02-10 10:35 | CA_ITS ---
APPROVED REPORT EXAM: Comprehensive 2D, Doppler, and color-flow Echocardiogram Wildlife And Game Protector: Zuleyma Galicia RVT Ht: 5 ft 5 in Wt: 249lbs BSA: 2.17 BP: 140/50 mmHg Indications: RUBALCAVA,HTN,HLD,GERD,CHF 2D Dimensions LVOT 2.18 cm (M/F) 1.5-2.5 LA Volume 51.90 mL LA Volume Index 23.91 mL/m2 (M/F) 16-34 M-Mode Dimensions RVDd 3.05 cm (0.9-2.6) LA Diam 4.40 cm (1.9-4.0) LVDd 5.98 cm (3.5-5.7) Ao Diam 3.07 cm (2.0-3.7) LVDs 3.17 cm (3.5-5.7) IVSd 1.16 cm (0.6-1.1) PWd 0.76 cm (0.6-1.1) EF (Teich) 77.60% FS 47.00% EDV (Teich) 178.60 mL TAPSE 2.60 (<1.7) ESV (Teich) 40.00 mL LV Diastology E Decel Time 263.00 (160-240 msec) E/A Ratio 1.8 MED E' 7.90 (< 7 cm/sec) E'/MED E' Ratio 16.49 (>14) LAT E' 8.50 (<10 cm/sec) E/LAT E' Ratio 15.33 (>14) Aortic Valve AO Peak GR. 7.40 mmHg Mitral Valve MV E Max Cl. 130.00 (40-130 cm/s) MV A Velocity 72.00 (40-130 cm/s) E/A Ratio 1.81 MV Decel. Time 263.00 (160-240 ms) MV PHT 77.00 ms Pulmonary Valve PV Peak Velocity 100.00 (50-150 cm/s) Left Ventricle Left atrium is mildly enlarged, left ventricle is normal size, mild concentric left ventricular hypertrophy, visually estimated ejection fraction 55% with no regional wall motion abnormality, grade 2 diastolic dysfunction seen with tissue Doppler evidence of raise left atrial pressure. Right Ventricle Right atrium right ventricle mildly enlarged with normal contractility. Aortic Valve Aortic valve is minimally thickened and fibrosed, there is no aortic stenosis or aortic insufficiency. Mitral Valve Mitral valve is grossly normal, there is mild mitral regurgitation. Tricuspid Valve Tricuspid grossly normal, there is mild tricuspid regurgitation, tricuspid regurgitation jet velocity is inadequate for calculation of the right ventricular systolic pressure. Pulmonic Valve Pulmonic valve is poorly visualized. Great Vessels Aortic root is normal size. Pericardium No significant pericardial effusion noted. Conclusion 1. Mild biatrial alignment, normal left ventricular size, mild concentric left ventricular hypertrophy, visually estimated ejection fraction 55% with no regional wall motion abnormality, grade 2 diastolic dysfunction seen with tissue Doppler evidence of raised left atrial pressure. 2. Mild mitral and tricuspid regurgitation. 3. No significant pericardial effusion noted. Electronically signed by : Truong Burt, 02/10/2021 22:11:14
== END ==
PROVIDERS: PCP Internal Medicine Adolescent Medicine; Visit Provider Internal Medicine Cardiovascular Disease
DX: E11.9 Type 2 diabetes mellitus without complications (principal); G47.33 Obstructive sleep apnea (adult) (pediatric); I11.9 Hypertensive heart disease without heart failure; I27.20 Pulmonary hypertension, unspecified; I50.9 Heart failure, unspecified; N18.2 Chronic kidney disease, stage 2 (mild); R06.00 Dyspnea, unspecified; R42 Dizziness and giddiness; R60.9 Edema, unspecified
CPT/HCPCS: 93306

== ENCOUNTER → 2021-02-17 06:18 | Outpatient (CLI) | payer MEDICARE, SELFPAY ==
--- NOTE | 2021-02-17 | CA_ITS ---
APPROVED REPORT Exam: Pharmacologic Technologist: Karolyn Morgan, Ht: 5 ft 5 in Wt: 249 lbs BSA: 2.17 m2 HR: 65 bpm BP: 140/49 mmHg Medical History Medications: Amlodipine,,,,, Aspirin,,,,, Atenolol,,,,, Effexor,,,,, Gabapentin,,,,, Allopurinol,,,,, Lipitor,,,,, Tramadol,,,,, Januvia,,,,, Meclizine,,,,, Multivitamin,,,,, Isosorbide Monoitrate ER,,,,, Stress Test Details Test: LEXISCAN HR Resting HR: 65 bpm Max Heart Rate (APMHR): 148.587593 bpm Max HR Achieved: 76 bpm Target HR (85% APMHR): 125.216818 bpm % of APMHR: 51.35 Recovery HR: 67 bpm BP Resting BP: 140/49 mmHg Max BP: 145/53 mmHg Recovery BP: 145.0/53.0 mmHg ECG Clinical Exercise duration: 04:00 min Highest Stage Achieved: Exercise capacity: 1.0 METs Stress ECG Conclusion Symptoms: SOA. No CP. Arrythmias/Ectopy: None. Artifact noted. ST-T Changes: <1.5mm ST segment changes. Test Summary REST . . . . . . . Resting REST 07:11 . . 65 . 140/ 49 . . Stage 1 . . . . . . . Cardiolite injected Stage 1 01:00 . . 74 . . . . Stage 2 01:00 . . 70 . . . . Stage 3 01:00 . . 69 . 121/ 42 . . Stage 4 01:00 . . 68 . 131/ 51 . Stop exercise at 04:00 RECOVERY 01:00 . . 68 . . . . RECOVERY 02:00 . . 70 . 121/ 62 . . RECOVERY 03:00 . . 67 . 121/ 62 . . RECOVERY 03:42 . . 67 . 145/ 53 . . Electronically signed by : Truong Burt, 02/17/2021 18:42:07
--- NOTE | 2021-02-17 06:18 | NM_ITS ---
APPROVED REPORT Exam: Nuclear Stress Test Indication: SOB, Fatigue, HTN, DM, High cholesterol, Family history Patient Location: Outpatient Stress Tech: Karolyn Morgan LA Tech:Tatiana Banegas, ARRT, RT (R)(N) Ht: 5 ft 6 in Wt: 235 lbs Bra Size: C HR: 65 bpm BP: 140/49 mmHg BSA: 2.14 m2 BMI: 37.9 History: SOB, Fatigue, HTN, DM, High cholesterol, Family history Procedure: Patient received a 0.4 mg of intravenous Lexiscan, resting heart rate 65 bpm, resting blood pressure 140/49 mmHg, with Lexiscan maximum heart rate achived was 74 bpm which is Less than 85 % of the maximum predicted heart rate and blood pressure was 121/42 mmHg. With Lexiscan, patient denied any complaint of chest pain. Electrocardiogram Resting electrocardiogram showed sinus rhythm, with Lexiscan there is less than 1.[address] segment depression noted from the baseline EKG. The EKG portion of the Lexiscan is nondiagnostic. Cardiac Stress and Resting SPECT Images: Cardiac Stress and Resting SPECT images were obtained using technetium 99m Myoview 30.4 mCi stress and 10.26 mCi at rest. Gated SPECT for analysis of segmental wall motion and calculation of the ejection fraction also done. Prone images were also obtained. Cardiac stress and resting SPECT images show uniform myocardial activity without segmental perfusion abnormality, computer derived ejection fraction is 53% with no regional wall motion abnormality, right ventricle is normal size and contractility. Conclusion: 1. The EKG portion of the Lexiscan is nondiagnostic. 2. No scintigraphic evidence of reversible ischemia seen, computer derived ejection fraction is 53% with no regional wall motion abnormality, right ventricle is normal size and contractility. 3. Normal Lexiscan Myoview study. Electronically signed by : Truong Burt, 02/17/2021 18:54:55
--- NOTE | 2021-02-17 08:25 | HMH.ITSHM ---
Current Home Medications as stated by this patient Mague Shell or cash applications representative. []VENALFAXINE TRAMADOL SITAGLIPTIN MULTIVITAMIN ISOSORBIDE GABAPENTIN FUROSEMIDE FLUTICASONE ATORVASTATIN ASA ATENOLOL AMLODIPINE ALLOPURINOL ALBUTEROL MECLIZINE
[2021-02-17 11:06] LABS: Chloride 102 mmol/L (98-107)
[2021-02-17 11:07] LABS: Potassium 5.3 mmoL/L (3.5-5.1); Sodium 139 mmol/L (136-145)
[2021-02-17 11:09] LABS: Blood Urea Nitrogen 70 mg/dl (7-17); Estimated Glomerular Filt Rate 15 ml/min (>60); GFR (African American) 19 ML/MIN (>60)
[2021-02-17 11:10] LABS: Anion Gap 17.3 mEq/L (5-15); Calcium 9.1 mg/dl (8.4-10.2); Carbon Dioxide 25 mmol/L (22.0-30.0); Glucose 126 mg/dl (74-100)
== END ==
PROVIDERS: Urology; PCP Internal Medicine Adolescent Medicine; Visit Provider Internal Medicine Cardiovascular Disease
DX: R06.00 Dyspnea, unspecified (principal); R60.9 Edema, unspecified
CPT/HCPCS: 36415; 78452; 80048; 93017; A9502; J2785

== ENCOUNTER → 2021-02-20 11:40 | Outpatient (CLI) | payer MEDICARE, SELFPAY ==
[2021-02-20 12:03] LABS: Basophils # 0.1 K/mm3 (0-0.2); Basophils % 0.4 % (0.1-2.0); Eosinophils # 0.5 K/mm3 (0.0-0.4); Hematocrit 27.1 % (37.0-47.0); Hemoglobin 8.8 g/dL (12.2-16.2); Lymphocytes # 2.7 K/mm3 (0.7-4.5); Lymphocytes % 20.5 % (10-50); Mean Corpuscular HGB Conc 32.6 g/dL (31.8-35.4); Mean Corpuscular Hemoglobin 31.2 pg (27.0-31.2); Mean Corpuscular Volume 95.6 fl (81-99); Mean Platelet Volume 8.9 fl (7.4-10.4); Monocytes # 0.8 K/mm3 (0.1-1.0); Monocytes % 6.2 % (1.7-9.3); Platelet Count 368 K/mm3 (142-424); Red Blood Count 2.83 M/mm3 (4.20-5.40); Red Cell Distribution Width 14.2 % (11.5-17.5); White Blood Count 13.1 K/mm3 (4.8-10.8)
== END ==
PROVIDERS: Visit Provider Internal Medicine Cardiovascular Disease
DX: D64.9 Anemia, unspecified (principal)
CPT/HCPCS: 36415; 85025

== ENCOUNTER 2021-03-17 12:02 | Observation (INO) | payer MEDICARE, SELFPAY ==
[2021-03-17] VITALS (27 sets, daily range): BP systolic 116–176; BP diastolic 49–82; PULSE 60–85; RESP 16–70; TEMP 36.4–37.5; O2SAT 90–99; BMI 40.5
--- NOTE | 2021-03-17 11:06 | XR_ITS ---
PROCEDURE: XR CHEST 2V CLINICAL HISTORY: ANEMIA,CHRONIC RENAL DISEASE,DYSPNEA COMPARISON: CR CXR CHEST(2 VIEWS-NOT PORTABLE) from 07/28/2017 CR XR CHEST 2V from 11/23/[address] CHEST WO CON from 10/28/2020 CR XR CHEST 2V from 01/18/2021 FINDINGS: Mild cardiomegaly without failure. Hazy density noted in the right perihilar region and right midlung. No obvious effusion. No acute bony anomalies. Surgical changes with inter pedicular screws are present at L1 and L2. IMPRESSION: Right-sided pneumonia Dictated by: Marvin Jones MD 03/17/2021 11:32 Marvin Jones MD in [facility] 03/17/2021 11:32
[2021-03-17 11:11] LABS: Basophils # 0.1 K/mm3 (0-0.2); Basophils % 0.5 % (0.1-2.0); Eosinophils # 0.4 K/mm3 (0.0-0.4); Eosinophils % 4.2 % (0.1-12.0); Lymphocytes # 1.1 K/mm3 (0.7-4.5); Lymphocytes % 12.4 % (10-50); Mean Corpuscular HGB Conc 29.4 g/dL (31.8-35.4); Mean Corpuscular Hemoglobin 29.3 pg (27.0-31.2); Monocytes # 0.7 K/mm3 (0.1-1.0); Monocytes % 7.6 % (1.7-9.3); Neutrophils # 6.8 K/mm3 (1.8-7.8); Neutrophils % 75.3 % (37.0-80.0); Platelet Count 450 K/mm3 (142-424); Red Blood Count 1.97 M/mm3 (4.20-5.40); Red Cell Distribution Width 14.7 % (11.5-17.5); White Blood Count 9.1 K/mm3 (4.8-10.8)
[2021-03-17 11:13] LABS: Chloride 109 mmol/L (98-107); Potassium 4.9 mmoL/L (3.5-5.1); Sodium 141 mmol/L (136-145)
[2021-03-17 11:16] LABS: Anion Gap 14.9 mEq/L (5-15); Blood Urea Nitrogen 68 mg/dl (7-17); Carbon Dioxide 22 mmol/L (22.0-30.0); Estimated Glomerular Filt Rate 14 ml/min (>60); GFR (African American) 17 ML/MIN (>60); Phosphorous 5.7 mg/dl (2.5-4.5)
[2021-03-17 11:17] LABS: Calcium 8.8 mg/dl (8.4-10.2); Glucose 102 mg/dl (74-100); Magnesium 1.9 mg/dl (1.6-2.3)
[2021-03-17 11:23] LABS: Hemoglobin 5.7 g/dL (12.2-16.2)
[2021-03-17 11:24] LABS: Hematocrit 19.5 % (37.0-47.0)
[2021-03-17 11:28] LABS: NT Pro Brain Natriuretic Pep. 6330 pg/mL (0-125)
[2021-03-17 13:04] LABS: Coronavirus 19, PCR Not Detected (NotDetected); Influenza A, PCR Not Detected (NotDetected); Influenza B, PCR Not Detected (NotDetected)
--- NOTE | 2021-03-17 15:44 | HMH.PHAVTE ---
[facility] [place] Pharmacy VTE Monitoring - Patient Demographics Admission date: 03/17/21 Report Date: 03/17/21 Time: 15:44 Allergies/Adverse Reactions: Patient Allergies Penicillins Allergy (Severe, Verified 02/20/21 10:44) THROAT SWELLING Height: 1.65 m Weight: 110.421 kg - VTE Risk Labs: VTE Related Lab Results Hgb 5.7 g/dL (12.2-16.2) L* 03/17/21 10:46 Hct 19.5 % (37.0-47.0) L* 03/17/21 10:46 Plt Count 450 K/mm3 (142-424) H 03/17/21 10:46 BUN 68 mg/dl (7-17) H 03/17/21 10:46 Creatinine 3.30 mg/dl (0.52-1.04) H 03/17/21 10:46 Clinical Trial Participant: No - Prophylaxis VTE Prophylaxis Ordered?: Yes Types of VTE Prophylaxis: TEDS Knee High
--- NOTE | 2021-03-17 19:17 | PC.NURSE ---
report received from Kashif Quevedo RN
--- NOTE | 2021-03-17 19:30 | PC.NURSE ---
pt arrived to floor at this time, pt is alert and oriented, vss, see biophysical for further evaluation
--- NOTE | 2021-03-17 20:15 | HMH.HP ---
*Admission Date: 03/17/21 *Chief complaint: shortness of breath *History of present illness: 70-year-old female with history of stage IV chronic kidney disease, chronic congestive heart failure, insulin requiring diabetes and anemia presents today accompanied by her with complaints of increasing shortness of breath and intolerance of activity. She reports that this has been progressive over the past approximately 3 weeks and at this point she is having difficulty making it from one room to the next without stopping to catch her breath. She was not able to shower this morning without sitting down and getting assistance from her which is very atypical for her. She denies any associated cough or fever. Does endorse general malaise, weakness. Her daughter has reported some mild confusion but the patient does not believe this is the case. She does report that she has been a little slow to find her words at times. Her last set of labs was approximately 4 weeks ago and showed a worsening normocytic anemia as well as increasing creatinine of 3.0. She was started on oral iron supplement and was to have more urgent followup with nephrology but the soonest they could see her was tomorrow in [facility] (typically seen in [facility] office) She isn't sure what her glucose has been running at home because she hasn't checked it at home recently but denies any symptoms of hypoglycemia. Last time she saw cardiology was about 4 weeks ago. She underwent echo and Lexiscan stress which were unremarkable for acute changes that would account for her shortness of breath. They did decrease her amlodipine from 10 mg daily to 5 mg daily but no other changes were made at that time Today she was pale, dyspneic and wheel-chair bound with mild hypoxia of 89% on room air in our office. Hemoglobin noted to be low at 5.7, BNP > 6000 and creatinine of 3.30 so she was admitted for transfusion of PRBC and additional treatment as indicated. [facility] History I have reviewed the patient's past medical history: Yes Medical History: Reports:: Congestive Heart Failure, Diabetes Mellitus Type 2, Gastroesophageal Reflux Disease(GERD), Hyperlipidemia, Hypertension, Lung Disease, Renal Disease, Renal Insufficiency, Ulcer Denies:: Cancer, Diabetes Mellitus Type 1, Internal Pacemaker, MRSA, Seizures *Have you ever received a pneumonia vaccine?: Yes *Have you received a flu vaccine this season?: Yes Other Medical History: Reports: Anemia, Arthritis. Denies: Blood Transfusion Reaction Other Surgeries: Yes: Cardiac Catheterization, Colonoscopy, Dilation and Curettage, EGD, Tubal Ligation, Other (back fusionx3, cervical neck). No: Pacemaker Amputation: No Fractures: No - *Social History Smoking Status: Never smoker Alcohol Intake: never Alcohol Intake Frequency:: other Substance Use Type: denies use *Occupational Status:: retired Housing: house Household Members: spouse *Travel in the last 8 weeks: Inside the [place] Family Hx:: Cancer, Diabetes, Heart Attack, Hyperlipidemia, Hypertension, Kidney Disease Review of Systems - Review of Systems Review of systems:: pertinent systems reviewed and negative unless documented below - Constitutional Reports chills, Reports fatigue, Reports weakness - *Cardiovascular Reports shortness of breath, Reports leg swelling (chronic), Denies chest pain - *Respiratory Reports shortness of breath, Denies cough - *Gastrointestinal Reports abdominal pain (chronic, upper abdomen), Reports constipation, Denies change in bowel habits, Denies difficulty swallowing, Denies vomiting blood, Denies bright, red blood in stools, Denies black, tarry stools - *Musculoskeletal Reports back pain (chronic, takes tramadol as needed) - *Neurologic Reports confusion, Reports unsteadiness, Denies dizziness Meds Home Medications Medication Instructions Recorded Confirmed Type aspirin 81 mg tablet,delayed 81 mg PO QDAY 08/25/17 03/17/21 History release
--- NOTE | 2021-03-17 20:26 | PC.NURSE ---
ordered post h&h at 2159
--- NOTE | 2021-03-17 21:35 | PC.NURSE ---
spoke with lab at this time who ask if blood cultures can be drawn with repeat H&H. antibiotics already infusing at this time so ok with lab to draw blood cultures then
--- NOTE | 2021-03-17 22:15 | PC.NURSE ---
RECEIVED CRITICAL HEMOGLOBIN 7.5 AND HEMATOCRIT 23.9 FROM [facility] ROLDAN
[2021-03-17 22:17] LABS: Hematocrit 23.9 % (37.0-47.0)
[2021-03-17 22:29] LABS: Hemoglobin 7.5 g/dL (12.2-16.2)
--- NOTE | 2021-03-17 22:42 | PC.NURSE ---
pt made aware of new orders for 2 more units of PRBCs and lasix in between units d/t lab work, pt agrees to plan of care at this time.
--- NOTE | 2021-03-17 22:43 | PC.NURSE ---
respiratory therapist made aware nebulizer will be needed to collect sputum culture
--- NOTE | 2021-03-17 23:10 | PC.NURSE ---
Sputum induced. Pt has nonproductive cough. Specimen cup left at bedside.
[2021-03-18] VITALS (16 sets, daily range): BP systolic 133–163; BP diastolic 59–83; PULSE 69–75; RESP 16–72; TEMP 36.7–37.2; O2SAT 92–98
[2021-03-18 01:00] LABS: POC Glucose,Bedside 161 (70-110)
--- NOTE | 2021-03-18 05:00 | PC.NURSE ---
pt has been awake most of shift, pt remains alert and oriented x 3, heart rate regular, pt became very short of air while ambulating to bathroom sats dropped to 80s, o2 was applied at 2l nc and o2 sat has remained above 93%, ble edema remains nonpitting, vss, pt completed 4 units of PRBCs and tolerated well, no needs at this time
[2021-03-18 06:00] LABS: Basophils % 0.4 % (0.1-2.0); Eosinophils # 0.4 K/mm3 (0.0-0.4); Eosinophils % 3.8 % (0.1-12.0); Hematocrit 28.3 % (37.0-47.0); Lymphocytes # 1.3 K/mm3 (0.7-4.5); Lymphocytes % 11.7 % (10-50); Mean Corpuscular HGB Conc 31.6 g/dL (31.8-35.4); Mean Corpuscular Hemoglobin 29.5 pg (27.0-31.2); Mean Corpuscular Volume 93.2 fl (81-99); Mean Platelet Volume 7.7 fl (7.4-10.4); Monocytes % 8.8 % (1.7-9.3); Neutrophils # 8.3 K/mm3 (1.8-7.8); Neutrophils % 75.4 % (37.0-80.0); Platelet Count 406 K/mm3 (142-424); Red Blood Count 3.03 M/mm3 (4.20-5.40); Red Cell Distribution Width 16.5 % (11.5-17.5)
[2021-03-18 06:06] LABS: Hemoglobin 8.9 g/dL (12.2-16.2)
[2021-03-18 06:09] LABS: Anion Gap 13.1 mEq/L (5-15); Blood Urea Nitrogen 65 mg/dl (7-17); Calcium 8.6 mg/dl (8.4-10.2); Carbon Dioxide 25 mmol/L (22.0-30.0); Chloride 107 mmol/L (98-107); Creatinine Clearance Estimated 30 mL/min (50-200); Estimated Glomerular Filt Rate 15 ml/min (>60); GFR (African American) 19 ML/MIN (>60); Glucose 102 mg/dl (74-100); Phosphorous 5.9 mg/dl (2.5-4.5); Potassium 5.1 mmoL/L (3.5-5.1); Sodium 140 mmol/L (136-145)
[2021-03-18 06:42] LABS: POC Glucose,Bedside 93 (70-110)
--- NOTE | 2021-03-18 07:06 | HMH.DCSUM ---
General - General Admission date:: 03/17/21 Discharge date: 03/18/21 HPI HPI: 70-year-old female with history of stage IV chronic kidney disease, chronic congestive heart failure, insulin requiring diabetes and anemia presents today accompanied by her with complaints of increasing shortness of breath and intolerance of activity. She reports that this has been progressive over the past approximately 3 weeks and at this point she is having difficulty making it from one room to the next without stopping to catch her breath. She was not able to shower this morning without sitting down and getting assistance from her which is very atypical for her. She denies any associated cough or fever. Does endorse general malaise, weakness. Her daughter has reported some mild confusion but the patient does not believe this is the case. She does report that she has been a little slow to find her words at times. Her last set of labs was approximately 4 weeks ago and showed a worsening normocytic anemia as well as increasing creatinine of 3.0. She was started on oral iron supplement and was to have more urgent followup with nephrology but the soonest they could see her was tomorrow in [facility] (typically seen in [place] office) She isn't sure what her glucose has been running at home because she hasn't checked it at home recently but denies any symptoms of hypoglycemia. Last time she saw cardiology was about 4 weeks ago. She underwent echo and Lexiscan stress which were unremarkable for acute changes that would account for her shortness of breath. They did decrease her amlodipine from 10 mg daily to 5 mg daily but no other changes were made at that time Today she was pale, dyspneic and wheel-chair bound with mild hypoxia of 89% on room air in our office. Hemoglobin noted to be low at 5.7, BNP > 6000 and creatinine of 3.30 so she was admitted for transfusion of PRBC and additional treatment as indicated. Hospital Course Hospital Course: Patient was admitted, given 2 units of packed cells and did well with this, hemoglobin went up to 8 g. Creatinine lowered to 3.0. Patient felt much better, good urine output. Plan will be to try to transition patient into the [facility] nephrology service that attends here, and we will make an effort to get that appointment for next week. We will follow her in 1 week in our office with labs at that point. Consideration will be given to starting EPO therapy given her anemia of chronic disease issues. Overall breathing much better, no changes in medicine otherwise. Radiology read pneumonia on chest x-ray, patient has no fever, symptoms, and my reading of the chest x-ray is more vascular congestion than lobar pneumonia and as a result patient will not be discharged antibiotics. I told her about the readings so that if she does have symptoms or sees the reading on patient portal she will not have some questions about it but certainly is welcome to call back if she is concerned about it. Objective Vital signs: Temp Pulse Resp BP Pulse Ox 98.6 F 69 22 163/72 H 96 03/18/21 05:48 03/18/21 05:48 03/18/21 05:48 03/18/21 05:48 03/18/21 05:48 no acute distress - *Routine HEENT Exam Head: Present: normocephalic Eye: Present: EOMI, PERRL ENT: Present: mucous membranes moist - *Routine Neck Exam Present: supple - *Routine Respiratory Exam Present: CTA bilaterally - *Routine Cardiovascular Exam Present: RRR - *Routine Abdominal Exam Present: soft, normoactive bowel sounds. Absent: tenderness - *Routine Extremities Exam Absent: cyanosis, clubbing, edema - *Routine Skin Exam Present: warm. Absent: rash - Detailed Eye Exam Eyelids: Bilateral normal inspection Results Labs on day of discharge: Labs from last 24 hours 03/18/21 03/18/21 03/18/21 06:15 05:44 05:44 WBC 11.0 H RBC 3.03 L D Hgb 8.9 L D Hct 28.3 L MCV 93.2 MCH 29.5
--- NOTE | 2021-03-18 07:11 | PC.NURSE ---
report given to Mari Fowler RN
--- NOTE | 2021-03-18 07:35 | PC.NURSE ---
Pt lying in bed this am. A/o x4. Denies any pain. Lungs cta and bowel sounds active x4. Reports no BM in 2 days. Trace edema noted to BLE. Pulses 2+ with cap refill <3 seconds. Denies dizziness, numbness,tingling, n/v. Skin assessment performed- no open wounds noted, and patient denies having any open areas. IV to right AC saline locked. Patient ready for discharge this am. No current needs. Call light within reach.
--- NOTE | 2021-03-18 07:42 | PC.NURSE ---
PT REPORTS TO NURSE THAT SHE WILL TAKE HER MORNING MEDICATION AT HOME.
[2021-03-19 14:12] LABS: Erythropoietin 90.2 mIU/mL (2.6-18.5)
== END 2021-03-18 08:12 | disposition home or self-care (01) ==
LOC: 2ND 14:11 → OB 03-18 07:09 → 2ND 03-18 11:46
PROVIDERS: Nurse Practitioner Family; Admitting Provider Internal Medicine Adolescent Medicine; PCP Internal Medicine Adolescent Medicine; Visit Provider Internal Medicine Adolescent Medicine
DX: J18.9 Pneumonia, unspecified organism (principal); I13.0 Hypertensive heart and chronic kidney disease with heart failure and stage 1 through stage 4 chronic kidney disease, or unspecified chronic kidney disease; E11.22 Type 2 diabetes mellitus with diabetic chronic kidney disease; I50.33 Acute on chronic diastolic (congestive) heart failure; N18.4 Chronic kidney disease, stage 4 (severe); D63.1 Anemia in chronic kidney disease; J44.9 Chronic obstructive pulmonary disease, unspecified; Z79.4 Long term (current) use of insulin; Z79.51 Long term (current) use of inhaled steroids; Z79.899 Other long term (current) drug therapy; Z99.3 Dependence on wheelchair; Z20.822 Contact with and (suspected) exposure to COVID-19
CPT/HCPCS: G0378; G0379; 36415; 71046; 80048; 82668; 82962; 83036; 83735; 83880; 84100; 85014; 85018; 85025; 86850; 87040; J1956; P9016; U0003

== ENCOUNTER → 2021-03-24 12:52 | Outpatient (CLI) | payer MEDICARE, SELFPAY ==
[2021-03-24 13:52] LABS: Basophils # 0.1 K/mm3 (0-0.2); Basophils % 0.6 % (0.1-2.0); Eosinophils # 0.7 K/mm3 (0.0-0.4); Eosinophils % 7.1 % (0.1-12.0); Lymphocytes # 1.7 K/mm3 (0.7-4.5); Lymphocytes % 17.1 % (10-50); Mean Corpuscular HGB Conc 32.4 g/dL (31.8-35.4); Mean Corpuscular Hemoglobin 29.9 pg (27.0-31.2); Mean Corpuscular Volume 92.2 fl (81-99); Mean Platelet Volume 7.5 fl (7.4-10.4); Monocytes # 0.7 K/mm3 (0.1-1.0); Monocytes % 6.6 % (1.7-9.3); Neutrophils # 6.8 K/mm3 (1.8-7.8); Neutrophils % 68.6 % (37.0-80.0); Platelet Count 538 K/mm3 (142-424); Red Blood Count 3.69 M/mm3 (4.20-5.40); Red Cell Distribution Width 15.8 % (11.5-17.5); White Blood Count 9.9 K/mm3 (4.8-10.8)
[2021-03-24 14:49] LABS: Chloride 106 mmol/L (98-107); Potassium 5.2 mmoL/L (3.5-5.1); Sodium 143 mmol/L (136-145)
[2021-03-24 14:52] LABS: Blood Urea Nitrogen 68 mg/dl (7-17); Estimated Glomerular Filt Rate 15 ml/min (>60); GFR (African American) 18 ML/MIN (>60)
[2021-03-24 14:53] LABS: Anion Gap 15.2 mEq/L (5-15); Calcium 9.5 mg/dl (8.4-10.2); Carbon Dioxide 27 mmol/L (22.0-30.0); Glucose 90 mg/dl (74-100)
== END ==
PROVIDERS: Visit Provider Nurse Practitioner Family
DX: N18.4 Chronic kidney disease, stage 4 (severe) (principal); D63.1 Anemia in chronic kidney disease
CPT/HCPCS: 36415; 80048; 85025

== ENCOUNTER → 2021-03-31 14:16 | Outpatient (POV) | payer MEDICARE, SELFPAY | PROVIDERS: Visit Provider Internal Medicine Nephrology | DX: Z00.00 Encounter for general adult medical examination without abnormal findings (principal) ==

== ENCOUNTER → 2021-04-21 08:33 | Outpatient (CLI) | payer MEDICARE, SELFPAY ==
[2021-04-21 08:40] LABS: Microscopic, Urine URINE MICROSCOPIC (MICROSCOPIC)
[2021-04-21 09:27] LABS: Appearance,Urine CLEAR (Clear); Bilirubin,Urine Negative (Negative); Blood, Urine Negative (Negative); Color,Urine YELLOW (Yellow); Glucose,Urine (UA) Negative (Negative); Ketones,Urine Negative (Negative); Leukocyte Esterase,Urine Negative (Negative); Nitrate,Urine Negative (Negative); Protein,Urine TRACE (Negative); Specific Gravity, Urine 1.015 (1.005-1.030); Urobilinogen,Urine 0.2 EU/dl (0.2)
[2021-04-21 09:38] LABS: Creatinine,Urine Random 50 mg/dL (Not Estab.)
[2021-04-21 09:42] LABS: Basophils # 0.1 K/mm3 (0-0.2); Basophils % 0.8 % (0.1-2.0); Eosinophils # 0.7 K/mm3 (0.0-0.4); Eosinophils % 5.7 % (0.1-12.0); Hematocrit 30.7 % (37.0-47.0); Hemoglobin 9.6 g/dL (12.2-16.2); Lymphocytes # 2.7 K/mm3 (0.7-4.5); Lymphocytes % 23.1 % (10-50); Mean Corpuscular HGB Conc 31.4 g/dL (31.8-35.4); Mean Corpuscular Hemoglobin 30.1 pg (27.0-31.2); Mean Platelet Volume 8.2 fl (7.4-10.4); Monocytes # 0.7 K/mm3 (0.1-1.0); Monocytes % 5.6 % (1.7-9.3); Neutrophils # 7.7 K/mm3 (1.8-7.8); Neutrophils % 64.9 % (37.0-80.0); Platelet Count 458 K/mm3 (142-424); White Blood Count 11.8 K/mm3 (4.8-10.8)
[2021-04-21 10:08] LABS: Albumin Level 3.7 g/dl (3.5-5.0); Chloride 104 mmol/L (98-107); Potassium 4.9 mmoL/L (3.5-5.1); Sodium 140 mmol/L (136-145)
[2021-04-21 10:10] LABS: Blood Urea Nitrogen 50 mg/dl (7-17); Estimated Glomerular Filt Rate 17 ml/min (>60); GFR (African American) 20 ML/MIN (>60)
[2021-04-21 10:11] LABS: Anion Gap 15.9 mEq/L (5-15); Calcium 8.9 mg/dl (8.4-10.2); Carbon Dioxide 25 mmol/L (22.0-30.0); Glucose 129 mg/dl (74-100); Iron 79 ug/dL (37-170); Phosphorous 5.4 mg/dl (2.5-4.5)
[2021-04-21 10:22] LABS: Total Iron Binding Capacity 221 ug/dL (265-497)
[2021-04-21 10:29] LABS: 25-OH Vitamin D, Total 44.1 ng/mL (30-100)
[2021-04-21 10:47] LABS: Ferritin 163 ng/ml (11.1-264)
[2021-04-21 21:49] LABS: Intact Parathyroid Hormone 312.4 pg/mL (7.5-53.5)
== END ==
PROVIDERS: Visit Provider Internal Medicine Nephrology
DX: N18.4 Chronic kidney disease, stage 4 (severe) (principal)
CPT/HCPCS: 36415; 80069; 81001; 82306; 82570; 82728; 83540; 83550; 83970; 85025

== ENCOUNTER → 2021-04-24 13:29 | Outpatient (CLI) | payer MEDICARE, SELFPAY | PROVIDERS: Visit Provider Internal Medicine Nephrology | DX: N18.4 Chronic kidney disease, stage 4 (severe) (principal) | CPT/HCPCS: 84155 ==

== ENCOUNTER → 2021-04-24 13:49 | Outpatient (POV) | payer MEDICARE, SELFPAY | PROVIDERS: Visit Provider Internal Medicine Nephrology | DX: Z00.00 Encounter for general adult medical examination without abnormal findings (principal) ==

== ENCOUNTER → 2021-07-29 14:26 | Outpatient (CLI) | payer MEDICARE, SELFPAY ==
[2021-07-29 14:31] LABS: Microscopic, Urine URINE MICROSCOPIC (MICROSCOPIC)
[2021-07-29 14:47] LABS: Hematocrit 30.1 % (37.0-47.0); Hemoglobin 9.8 g/dL (12.2-16.2); Mean Corpuscular HGB Conc 32.7 g/dL (31.8-35.4); Mean Corpuscular Hemoglobin 31.8 pg (27.0-31.2); Mean Corpuscular Volume 97.4 fl (81-99); Platelet Count 376 K/mm3 (142-424); Red Blood Count 3.09 M/mm3 (4.20-5.40); Red Cell Distribution Width 14.2 % (11.5-17.5); White Blood Count 9.7 K/mm3 (4.8-10.8)
[2021-07-29 15:03] LABS: Appearance,Urine CLEAR (Clear); Bilirubin,Urine Negative (Negative); Blood, Urine Negative (Negative); Color,Urine YELLOW (Yellow); Glucose,Urine (UA) Negative (Negative); Ketones,Urine Negative (Negative); Leukocyte Esterase,Urine Negative (Negative); Nitrate,Urine Negative (Negative); Protein,Urine 1+ (Negative); Specific Gravity, Urine 1.015 (1.005-1.030); Urobilinogen,Urine 0.2 EU/dl (0.2)
[2021-07-29 15:31] LABS: Bacteria,Urine 2+ /lpf; RBC,Urine Occasional #/hpf (0-3); Squamous Epithelial Cell,Urine Occasional #/hpf (0-5)
[2021-07-29 16:01] LABS: Albumin Level 3.9 g/dl (3.5-5.0); Anion Gap 10.6 mEq/L (5-15); Blood Urea Nitrogen 57 mg/dl (7-17); Calcium 8.8 mg/dl (8.4-10.2); Carbon Dioxide 28 mmol/L (22.0-30.0); Chloride 104 mmol/L (98-107); Estimated Glomerular Filt Rate 17 ml/min (>60); GFR (African American) 20 ML/MIN (>60); Glucose 164 mg/dl (74-100); Phosphorous 4.9 mg/dl (2.5-4.5); Potassium 4.6 mmoL/L (3.5-5.1); Sodium 138 mmol/L (136-145)
[2021-07-29 20:42] LABS: Creatinine,Urine Random 34 mg/dL (Not Estab.)
== END ==
PROVIDERS: Visit Provider Internal Medicine Nephrology
DX: N18.4 Chronic kidney disease, stage 4 (severe) (principal); R82.90 Unspecified abnormal findings in urine
CPT/HCPCS: 36415; 80069; 81001; 82570; 84155; 85014; 85018; 85048; 85049; 87086

== ENCOUNTER → 2021-08-04 12:56 | Outpatient (POV) | payer MEDICARE, SELFPAY | PROVIDERS: Visit Provider Internal Medicine Nephrology | DX: Z00.00 Encounter for general adult medical examination without abnormal findings (principal) ==

== ENCOUNTER → 2021-08-11 12:38 | Outpatient (CLI) | payer MEDICARE, SELFPAY | PROVIDERS: PCP Internal Medicine Adolescent Medicine; Visit Provider Internal Medicine Nephrology | DX: R06.09 Other forms of dyspnea (principal) ==

== ENCOUNTER → 2021-08-14 12:29 | Outpatient (CLI) | payer MEDICARE, SELFPAY ==
[2021-08-14 12:52] LABS: Basophils # 0.1 K/mm3 (0-0.2); Basophils % 0.6 % (0.1-2.0); Eosinophils # 0.4 K/mm3 (0.0-0.4); Eosinophils % 3.7 % (0.1-12.0); Hemoglobin 10.1 g/dL (12.2-16.2); Lymphocytes # 2.5 K/mm3 (0.7-4.5); Lymphocytes % 23.9 % (10-50); Mean Corpuscular HGB Conc 31.5 g/dL (31.8-35.4); Mean Corpuscular Hemoglobin 31.7 pg (27.0-31.2); Mean Corpuscular Volume 100.6 fl (81-99); Mean Platelet Volume 8.6 fl (7.4-10.4); Monocytes # 0.5 K/mm3 (0.1-1.0); Monocytes % 5.1 % (1.7-9.3); Neutrophils % 66.8 % (37.0-80.0); Platelet Count 401 K/mm3 (142-424); Red Blood Count 3.18 M/mm3 (4.20-5.40); White Blood Count 10.4 K/mm3 (4.8-10.8)
[2021-08-14 13:25] LABS: Hemoglobin A1C 6.4 % (4.0-6.0)
[2021-08-14 14:59] LABS: Albumin Level 3.8 g/dl (3.5-5.0); Anion Gap 12.7 mEq/L (5-15); Blood Urea Nitrogen 53 mg/dl (7-17); Calcium 9.1 mg/dl (8.4-10.2); Carbon Dioxide 28 mmol/L (22.0-30.0); Chloride 103 mmol/L (98-107); Estimated Glomerular Filt Rate 17 ml/min (>60); GFR (African American) 21 ML/MIN (>60); Glucose 163 mg/dl (74-100); Phosphorous 4.6 mg/dl (2.5-4.5); Potassium 4.7 mmoL/L (3.5-5.1); Sodium 139 mmol/L (136-145)
[2021-08-14 15:00] LABS: Alanine Aminotransferase 11 U/L (12-78); Albumin Level 3.8 g/dl (3.5-5.0); Albumin/Globulin Ratio 1.4 (1.1-1.8); Alkaline Phosphatase 128 U/L (38-126); Anion Gap 12.7 mEq/L (5-15); Aspartate Amino Transferase 16 U/L (14-36); Bilirubin,Total 0.7 mg/dl (0.2-1.3); Blood Urea Nitrogen 53 mg/dl (7-17); Calcium 9.2 mg/dl (8.4-10.2); Carbon Dioxide 29 mmol/L (22.0-30.0); Chloride 102 mmol/L (98-107); Chol/HDL Ratio 6.2 (1-3.5); Cholesterol 204 mg/dl (140-200); Estimated Glomerular Filt Rate 17 ml/min (>60); GFR (African American) 21 ML/MIN (>60); Globulin 2.8 g/dL (1.3-3.2); Glucose 164 mg/dl (74-100); HDL Cholesterol 33 mg/dl (40-60); Potassium 4.7 mmoL/L (3.5-5.1); Sodium 139 mmol/L (136-145); Total Protein,Serum 6.6 g/dl (6.3-8.2); Triglycerides 325 mg/dl (30-150); VLDL Cholesterol 65 mg/dL (0-40)
[2021-08-14 15:11] LABS: Direct LDL Cholesterol 60.94 mg/dL (100-129)
[2021-08-14 15:16] LABS: Free T4 (Free Thyroxine) 0.74 ng/dl (0.78-2.19)
[2021-08-14 15:31] LABS: Thyroid Stimulating Hormone 1.72 uIU/mL (0.465-4.68)
== END ==
PROVIDERS: Nurse Practitioner Family; Visit Provider Internal Medicine Nephrology
DX: E11.42 Type 2 diabetes mellitus with diabetic polyneuropathy (principal); I10 Essential (primary) hypertension; N18.4 Chronic kidney disease, stage 4 (severe); Z79.84 Long term (current) use of oral hypoglycemic drugs
CPT/HCPCS: 36415; 80053; 80061; 80069; 83036; 84439; 84443; 85025

== ENCOUNTER 2021-08-18 03:13 | Inpatient (IN) | payer MEDICARE, SELFPAY ==
[2021-08-18] VITALS (8 sets, daily range): BP systolic 165–204; BP diastolic 64–88; PULSE 59–81; RESP 16–25; TEMP 36.6–37.3; O2SAT 86–99; BMI 41.5; BMI 40.8; BMI 42.4
--- NOTE | 2021-08-18 03:20 | ECG_ITS ---
APPROVED REPORT Exam: Resting ECG HR:80 bpm ECG Measurements Heart Rate 80 AXES WV 200 P QRSd 86 QRS -14 QT 412 T 75 QTc 475 Conclusion Normal sinus rhythm Moderate voltage criteria for LVH, may be normal variant Cannot rule out Septal infarct, age undetermined Abnormal ECG Electronically signed by : Shine Bassett MD 08/20/2021 13:28:03
--- NOTE | 2021-08-18 03:25 | XR_ITS ---
PROCEDURE INFORMATION: Exam: XR Chest Exam date and time: 08/18/2021 3:25 AM Age: 71 years old Clinical indication: Shortness of breath; Additional info: SOA TECHNIQUE: Imaging protocol: XR of the chest. Views: 2 views. COMPARISON: CR XR CHEST 2V 03/17/2021 11:09 AM FINDINGS: Lungs: Diffuse interstitial prominence with bilateral perihilar fullness, suggesting [id number] pulmonary edema. Differential would include atypical infection. Mild dependent atelectasis at the lung bases. Biapical scarring. Pleural spaces: Small bilateral pleural effusions, right greater than left. No pneumothorax. Heart/Mediastinum: Cardiomegaly, similar to prior. Mild aortic atherosclerosis. Bones/joints: Osteopenia. Spondylosis. Upper lumbar fusion hardware. IMPRESSION: 1. Findings favoring [id number]-az-[id number] pulmonary edema, versus atypical infection. 2. Small bilateral pleural effusions.
[2021-08-18 03:32] LABS: Basophils # 0.1 K/mm3 (0-0.2); Basophils % 0.7 % (0.1-2.0); Coronavirus 19, PCR Not Detected (NotDetected); Eosinophils # 0.4 K/mm3 (0.0-0.4); Eosinophils % 2.6 % (0.1-12.0); Hematocrit 32.9 % (37.0-47.0); Hemoglobin 10.2 g/dL (12.2-16.2); Influenza A, PCR Not Detected (NotDetected); Influenza B, PCR Not Detected (NotDetected); Lymphocytes # 3.9 K/mm3 (0.7-4.5); Lymphocytes % 24.5 % (10-50); Mean Corpuscular Hemoglobin 31.5 pg (27.0-31.2); Mean Corpuscular Volume 101.9 fl (81-99); Mean Platelet Volume 8.8 fl (7.4-10.4); Monocytes # 0.8 K/mm3 (0.1-1.0); Neutrophils # 10.8 K/mm3 (1.8-7.8); Neutrophils % 67.1 % (37.0-80.0); Platelet Count 424 K/mm3 (142-424); Red Blood Count 3.23 M/mm3 (4.20-5.40); Red Cell Distribution Width 13.9 % (11.5-17.5)
[2021-08-18 03:34] LABS: MANUAL DIFFERENTIAL MANUAL DIFFERENTIAL (MANUAL DIFF)
[2021-08-18 03:44] LABS: Alanine Aminotransferase 12 U/L (12-78); Albumin Level 4.2 g/dl (3.5-5.0); Alkaline Phosphatase 145 U/L (38-126); Anion Gap 11.3 mEq/L (5-15); Aspartate Amino Transferase 20 U/L (14-36); Bilirubin,Direct 0.1 mg/dl (0.0-0.4); Bilirubin,Indirect 0.7 mg/dL (0.0-0.9); Bilirubin,Total 0.8 mg/dl (0.2-1.3); Bilirubin,Unconjugated 0.8 mg/dL (0.0-1.1); Blood Urea Nitrogen 55 mg/dl (7-17); Calcium 9.1 mg/dl (8.4-10.2); Carbon Dioxide 27 mmol/L (22.0-30.0); Chloride 104 mmol/L (98-107); Creatinine Clearance Estimated 16 mL/min (50-200); Estimated Glomerular Filt Rate 16 ml/min (>60); GFR (African American) 19 ML/MIN (>60); Glucose 185 mg/dl (74-100); Magnesium 1.7 mg/dl (1.6-2.3); Potassium 4.3 mmoL/L (3.5-5.1); Sodium 138 mmol/L (136-145); Total Protein,Serum 7.3 g/dl (6.3-8.2)
--- NOTE | 2021-08-18 03:45 | HMH.EDSOB ---
ED Disposition Clinical Impression: CKD (chronic kidney disease) stage 4, GFR 15-29 ml/min, Insulin dependent diabetes mellitus CHF (congestive heart failure) Qualifiers: Heart failure type: unspecified Heart failure chronicity: acute on chronic Qualified Code(s): I50.9 - Heart failure, unspecified Obesity Qualifiers: Obesity type: due to excess calories Obesity classification: adult class 3 (BMI >= 40) Serious obesity comorbidity presence: with serious comorbidity Body mass index: BMI 40.0-44.9 Qualified Code(s): E66.01 - Morbid (severe) obesity due to excess calories; Z68.41 - Body mass index [BMI] 40.0-44.9, adult Disposition: Admitted as Observation Condition on Discharge: Serious Referrals: Shine Bassett MD [Primary Care Provider] - - Critical Care Critical Care Time: No Attestation: On 08/18/21, the high probability of a clinically significant, sudden or life threatening deterioration of the following system(s) required my full and direct attention, intervention and personal management. The time I documented below is in addition to time spent performing reported procedures but includes the following listed in this critical care notation. Medical Decision Making - Medical Records Medical records reviewed: Yes: I reviewed the patient's medical records. - Andrae Inquiry Pt receiving controlled substance: No Vital Signs: 08/18/21 03:14 08/18/21 03:31 Temperature 98.3 F Temperature Source Oral Pulse Rate [Right] 81 Respiratory Rate 25 H Blood Pressure 185/88 H Blood Pressure [Right Arm] 199/87 H Blood Pressure Mean 120 Blood Pressure Mean [Right Arm] 124 Blood Pressure Source [Right Arm] Automatic Cuff 02 Sat by Pulse Oximetry 86 L 94 L Oxygen Delivery Method Room Air Nasal Cannula Oxygen Flow Rate (LPM) 3 - Lab Data Lab results reviewed: Yes: I reviewed the patient's lab results. Lab Results 08/18/21 03:22: WBC 16.0 H, RBC 3.23 L, Hgb 10.2 L, Hct 32.9 L, MCV 101.9 H, MCH 31.5 H, MCHC 31.0 L, RDW 13.9, Plt Count 424, MPV 8.8, Neut % (Auto) 67.1, Lymph % (Auto) 24.5, [place] % (Auto) 5.0, Eos % (Auto) 2.6, Baso % (Auto) 0.7, Neut # (Auto) 10.8 H, Lymph # (Auto) 3.9, [place] # (Auto) 0.8, Eos # (Auto) 0.4, Baso # (Auto) 0.1, Total Counted 100, Neutrophils % (Manual) 81 H, Band Neutrophils % 5.0, Lymphocytes % (Manual) 14, Platelet Estimate Normal, Hypochromasia 1+, Macrocytosis 2+, ESR 117 H 08/18/21 03:22: Sodium 138, Potassium 4.3, Chloride 104, Carbon Dioxide 27, Anion Gap 11.3, BUN 55 H, Creatinine 2.90 H, Estimated Creat Clear 16, Estimated GFR 16 L*, Est GFR ( Amer) 19 L*, Glucose 185 H, Calcium 9.1, Magnesium 1.7, Total Bilirubin 0.8, Direct Bilirubin 0.1, Conjugated Bilirubin 0.0, Indirect Bilirubin 0.7, Unconjugated Bilirubin 0.8, AST 20, ALT 12, Alkaline Phosphatase 145 H, Troponin I < 0.01, C-Reactive Protein 38.9 H, NT-Pro-B Natriuret Pep 7150 H, Total Protein 7.3, Albumin 4.2, Procalcitonin 0.160 08/18/21 03:22: SARS-CoV-2 (PCR) Not detected, Influenza A Untype (PCR) Not detected, Influenza Type B (PCR) Not detected Result diagrams: 08/18/21 03:22 08/18/21 03:22 Orders (Tests/Meds): ED MEDICATIONS Generic Name Dose Route Start Last Admin Trade Name Freq PRN Reason Stop Dose Admin Sodium Chloride 1,000 mls @ 999 mls/hr 08/18/21 03:30 Sod Chlor 0.9% 1000ml Bag IV 08/18/21 04:30 .Q1H1M RAJAT Discontinued Medications Generic Name Dose Route Start Last Admin Trade Name Freq PRN Reason Stop Dose Admin Furosemide 80 mg 08/18/21 03:52 Furosemide 40mg/4ml Vial IV 08/18/21 03:53 ONCE ONE Methylprednisolone Sodium Succinate 125 mg 08/18/21 03:25 Methylprednisolone Sod Succ 125mg Vial IV 08/18/21 03:26 ONCE ONE ORDERS Category Date Time Status Troponin I Q3H Lab 08/18/21 06:30 Ordered Troponin I Q3H Lab 08/18/21 09:30 Ordered UA [Urinalysis and Microscopic] Stat Lab 08/18/21 03:27 Ordered ECG Request by /Pablo Stat Y
[2021-08-18 03:49] LABS: C-Reactive Protein 38.9 mg/L (0-4)
[2021-08-18 03:51] LABS: Hypochromasia 1+; Lymphocytes % 14 % (10-50); Macrocytosis 2+; Neutrophils % 81 % (42-76); Platelet Estimate Normal; Total Cells Counted 100
--- NOTE | 2021-08-18 03:54 | PC.NURSE ---
Dr. Ayala notified of critical GR and creatine
[2021-08-18 03:57] LABS: Erythrocyte Sedimentation Rate 117 mm/hr (0-30)
[2021-08-18 03:58] LABS: NT Pro Brain Natriuretic Pep. 7150 pg/mL (0-125)
[2021-08-18 04:01] LABS: Troponin I < 0.01 ng/ml (0.00-0.034)
--- NOTE | 2021-08-18 05:53 | PC.NURSE ---
PATIENT UP TO FLOOR WHEELCHAIR @ THIS TIME
[2021-08-18 06:54] LABS: POC Glucose,Bedside 137 (70-110)
--- NOTE | 2021-08-18 07:49 | PC.NURSE ---
urine sent to lab at this time
[2021-08-18 07:51] LABS: Microscopic, Urine URINE MICROSCOPIC (MICROSCOPIC)
[2021-08-18 07:58] LABS: Appearance,Urine CLEAR (Clear); Bilirubin,Urine Negative (Negative); Blood, Urine TRACE-I (Negative); Color,Urine YELLOW (Yellow); Glucose,Urine (UA) Negative (Negative); Ketones,Urine Negative (Negative); Leukocyte Esterase,Urine Negative (Negative); Nitrate,Urine Negative (Negative); PH,Urine 6.5 (5.0-8.5); Protein,Urine 1+ (Negative); Urobilinogen,Urine 0.2 EU/dl (0.2)
[2021-08-18 08:11] LABS: Squamous Epithelial Cell,Urine Occasional #/hpf (0-5)
[2021-08-18 08:23] LABS: Troponin I 0.02 ng/ml (0.00-0.034)
--- NOTE | 2021-08-18 08:59 | HMH.HP ---
*Admission Date: 08/18/21 *Chief complaint: Shortness of air/chest pressure *History of present illness: 71-year-old white female with known history of chronic kidney disease, stage IV, along with diastolic CHF and significant hypertension. Over the past 24 hours she has had increasing worsening of her dyspnea, chest pressure and lower extremity edema. Blood pressure was also very high at home, came to the hospital where she was evaluated in the ER and found to have elevated BNP levels, elevated blood pressure and increasing swelling of her leg as well as slight worsening of her creatinine. Given IV Lasix and admitted to hospital for further evaluation, monitoring, echocardiogram and cardiology consultation. [facility] History I have reviewed the patient's past medical history: Yes Medical History: Reports:: Congestive Heart Failure, Diabetes Mellitus Type 2, Gastroesophageal Reflux Disease(GERD), Hyperlipidemia, Hypertension, Lung Disease, Renal Disease, Renal Insufficiency, Ulcer Denies:: Cancer, Diabetes Mellitus Type 1, Internal Pacemaker, MRSA, Seizures *Have you ever received a pneumonia vaccine?: No *Have you received a flu vaccine this season?: Yes Other Medical History: Reports: Anemia, Arthritis. Denies: Blood Transfusion Reaction Laterality Cases: Right: Lumpectomy Other Surgeries: Yes: Cardiac Catheterization, Colonoscopy, Dilation and Curettage, EGD, Tubal Ligation, Other (back fusionx3, cervical neck). No: Pacemaker Amputation: No Fractures: No - *Social History Smoking Status: Never smoker Alcohol Intake: never Alcohol Intake Frequency:: other Substance Use Type: denies use *Occupational Status:: retired Housing: house Household Members: spouse *Travel in the last 8 weeks: None Family Hx:: No significant family history Review of Systems - Review of Systems Review of systems:: pertinent systems reviewed and negative unless documented below - *Neurologic Denies seizure-like activity Meds Home Medications Medication Instructions Recorded Confirmed Type aspirin 81 mg tablet,delayed 81 mg PO QDAY 08/25/17 08/18/21 History release gabapentin 300 mg capsule 300 mg PO TID 08/25/17 08/18/21 History tramadol 50 mg tablet 50 mg PO ONCE 08/25/17 08/18/21 History acetaminophen 500 mg tablet 500 mg PO Q6H PRN 08/26/17 08/18/21 History multivitamin 1 tab PO BID each 08/26/17 08/18/21 History allopurinol 100 mg tablet 100 mg PO DAILY 05/12/18 08/18/21 History sitagliptin 50 mg tablet 50 mg PO DAILY 05/12/18 08/18/21 History venlafaxine 75 mg capsule,extended 37.5 mg PO QDAY cap 01/19/20 08/18/21 History release 24 hr atenoloL [Atenolol 100mg Tab] 100 mg PO DAILY 01/18/21 08/18/21 History furosemide 40 mg tablet 80 mg PO DIRECTED tab 01/23/21 08/18/21 History Atorvastatin Calcium [Lipitor 40mg 40 mg PO DAILY 03/17/21 08/18/21 History Tab] ferrous sulfate 325 mg (65 mg 325 mg PO DAILY tab 04/03/21 08/18/21 History iron) tablet famotidine 20 mg tablet 20 mg PO DAILY PRN tab 08/08/21 08/18/21 History Allergies Allergy/AdvReac Type Severity Reaction Status Date / Time Penicillins Allergy Severe THROAT Verified 08/18/21 06:13 SWELLING Exam Vital signs and Labs for Last 24 Hours: Temp Pulse Resp BP Pulse Ox 97.9 F 68 18 203/77 H 97 08/18/21 08:00 08/18/21 08:00 08/18/21 08:00 08/18/21 08:00 08/18/21 08:00 Laboratory Results - last 24 hr 08/18/21 03:22: WBC 16.0 H, RBC 3.23 L, Hgb 10.2 L, Hct 32.9 L, MCV 101.9 H, MCH 31.5 H, MCHC 31.0 L, RDW 13.9, Plt Count 424, MPV 8.8, Neut % (Auto) 67.1, Lymph % (Auto) 24.5, [place] % (Auto) 5.0, Eos % (Auto) 2.6, Baso % (Auto) 0.7, Neut # (Auto) 10.8 H, Lymph # (Auto) 3.9, [place] # (Auto) 0.8, Eos # (Auto) 0.4, Baso # (Auto) 0.1, Total Counted 100, Neutrophils % (Manual) 81 H, Band Neutrophils % 5.0, Lymphocytes % (Manual) 14, Platelet Estimate Normal, Hypochromasia 1+, Macrocytosis 2+, ESR 117 H 08/18/21 03:22: Sodium 138, Potassium 4.3, Chlo
[2021-08-18 10:02] LABS: Troponin I 0.01 ng/ml (0.00-0.034)
--- NOTE | 2021-08-18 10:45 | HMH.CNCARD ---
History of Present Illness Consult date: 08/18/21 Requesting physician: Shine Bassett Consult reason: congestive heart failure, shortness of breath Chief complaint: soa History of present illness: This is a 71-year-old white female who presented to the emergency department with complaints of shortness of breath. The patient has not felt well for the last 1 to 2 weeks but over the last 24 hours her shortness of breath significantly worsened. The patient states that she is having severe shortness of breath. She states that it woke her from her sleep last night and she was gasping for air and that is what prompted her to come to the emergency department. Her shortness of breath is associated with bilateral lower extremity edema. The patient states that her blood pressure was malignantly elevated at home with her systolic blood pressure over 200. The patient came into the emergency department and was found to have an elevated BNP, elevated blood pressure, worsening creatinine and lower extremity edema. The patient was given IV Lasix in the emergency department and admitted to the hospital. The patient's GFR is down to 16 and the daughter reports that her GFR was down to 15 and her grinder set up operator jig office. She states that her mother has stage V chronic kidney disease and was supposed to be going for vein mapping this week to likely start dialysis. The patient denies any chest pain or pressure. The patient denies any fever, chills, nausea, vomiting or diarrhea. Her shortness of breath is associated with orthopnea and PND. [facility] History I have reviewed the patient's past medical history: Yes Medical History: Reports:: Congestive Heart Failure, Diabetes Mellitus Type 2, Gastroesophageal Reflux Disease(GERD), Hyperlipidemia, Hypertension, Lung Disease, Renal Disease, Renal Insufficiency, Ulcer Denies:: Cancer, Diabetes Mellitus Type 1, Internal Pacemaker, MRSA, Seizures *Have you ever received a pneumonia vaccine?: No *Have you received a flu vaccine this season?: Yes Other Medical History: Reports: Anemia, Arthritis. Denies: Blood Transfusion Reaction Laterality Cases: Right: Lumpectomy Other Surgeries: Yes: Cardiac Catheterization, Colonoscopy, Dilation and Curettage, EGD, Tubal Ligation, Other (back fusionx3, cervical neck). No: Pacemaker Amputation: No Fractures: No - *Social History Smoking Status: Never smoker Alcohol Intake: never Alcohol Intake Frequency:: other Substance Use Type: denies use *Occupational Status:: retired Housing: house Household Members: spouse *Travel in the last 8 weeks: None Family Hx:: No significant family history Meds Home Medications Medication Instructions Recorded Confirmed Type aspirin 81 mg tablet,delayed 81 mg PO QDAY 08/25/17 08/18/21 History release gabapentin 300 mg capsule 300 mg PO TID 08/25/17 08/18/21 History tramadol 50 mg tablet 50 mg PO ONCE 08/25/17 08/18/21 History acetaminophen 500 mg tablet 500 mg PO Q6H PRN 08/26/17 08/18/21 History multivitamin 1 tab PO BID each 08/26/17 08/18/21 History allopurinol 100 mg tablet 100 mg PO DAILY 05/12/18 08/18/21 History sitagliptin 50 mg tablet 50 mg PO DAILY 05/12/18 08/18/21 History venlafaxine 75 mg capsule,extended 37.5 mg PO QDAY cap 01/19/20 08/18/21 History release 24 hr atenoloL [Atenolol 100mg Tab] 100 mg PO DAILY 01/18/21 08/18/21 History furosemide 40 mg tablet 80 mg PO DIRECTED tab 01/23/21 08/18/21 History Atorvastatin Calcium [Lipitor 40mg 40 mg PO DAILY 03/17/21 08/18/21 History Tab] ferrous sulfate 325 mg (65 mg 325 mg PO DAILY tab 04/03/21 08/18/21 History iron) tablet famotidine 20 mg tablet 20 mg PO DAILY PRN tab 08/08/21 08/18/21 History Allergies Allergy/AdvReac Type Severity Reaction Status Date / Time Penicillins Allergy Severe THROAT Verified 08/18/21 06:13 SWELLING Exam Vital signs and Labs for Last 24 Hours: Temp Pulse Resp BP Pulse Ox 97.9 F 68 18 203/77 H 97 08/18/21
--- NOTE | 2021-08-18 11:09 | P.CONPHA_ITS ---
[facility] Pharmacy VTE Monitoring - Patient Demographics Admission date: 08/18/21 Report Date: 08/18/21 Time: 11:09 Allergies/Adverse Reactions: Patient Allergies Penicillins Allergy (Severe, Verified 08/18/21 06:13) THROAT SWELLING Height: 1.65 m Weight: 111.3 kg Patient Problems: Current Active Problems Elevated brain natriuretic peptide (BNP) level (Chronic) Insulin dependent diabetes mellitus (Chronic) Obesity (Acute) CKD (chronic kidney disease) stage 5, GFR less than 15 ml/min (Acute) CKD (chronic kidney disease) stage 4, GFR 15-29 ml/min (Chronic) Hypertensive heart disease (Chronic) Diabetes mellitus (Chronic) WONG (obstructive sleep apnea) (Chronic) Pulmonary hypertension (Chronic) CHF (congestive heart failure) (Chronic) - VTE Risk Labs: VTE Related Lab Results Hgb 10.2 g/dL (12.2-16.2) L 08/18/21 03:22 Hct 32.9 % (37.0-47.0) L 08/18/21 03:22 Plt Count 424 K/mm3 (142-424) 08/18/21 03:22 BUN 55 mg/dl (7-17) H 08/18/21 03:22 Creatinine 2.90 mg/dl (0.52-1.04) H 08/18/21 03:22 Estimated Creat Clear 16 mL/min (50-200) 08/18/21 03:22 Was VTE Risk Assessment Performed: Yes VTE Score: 4 VTE Risk Level: Low Risk Clinical Trial Participant: No - Prophylaxis VTE Prophylaxis Ordered?: Yes Types of VTE Prophylaxis: TEDS Knee High Location of Applied Device: Bilateral Lower Extremeties
--- NOTE | 2021-08-18 11:09 | HMH.PHAINT ---
MEDICATION RECONCILIATION COMPLETE USING LIST FROM MD OFFICE AND EXTERNAL PHARMACY FILL HISTORY.
[2021-08-18 11:33] LABS: POC Glucose,Bedside 84 (70-110)
[2021-08-18 16:23] LABS: POC Glucose,Bedside 136 (70-110)
--- NOTE | 2021-08-18 19:00 | PC.NURSE ---
Pt has been pleasant this shift. Wheezing noted t/o all lung daniels. Pt has diuresed 3L this shift and has used BSC. Appeitie has been appropriate. x1 assist to and from the BSC. +2 pitting edema BLE, and non-pitting edema noted to BUE. Pt has been NSR on tele. No other acute changes or complaints.
[2021-08-18 21:07] LABS: POC Glucose,Bedside 119 (70-110)
[2021-08-19] VITALS (10 sets, daily range): BP systolic 126–184; BP diastolic 54–96; PULSE 60–89; RESP 16–19; TEMP 36.6–37.3; O2SAT 96–100; BMI 41.5
[2021-08-19 06:45] LABS: Chloride 103 mmol/L (98-107); Sodium 140 mmol/L (136-145)
[2021-08-19 06:49] LABS: Blood Urea Nitrogen 55 mg/dl (7-17); Calcium 8.4 mg/dl (8.4-10.2); Carbon Dioxide 30 mmol/L (22.0-30.0); Creatinine Clearance Estimated 13 mL/min (50-200); Estimated Glomerular Filt Rate 14 ml/min (>60); GFR (African American) 17 ML/MIN (>60); Glucose 115 mg/dl (74-100)
[2021-08-19 07:10] LABS: POC Glucose,Bedside 118 (70-110)
--- NOTE | 2021-08-19 07:39 | PC.NURSE ---
patient rested well during night. VSS on 2L. NSR on monitor. Up ad rafael in room. Denies complaints.
--- NOTE | 2021-08-19 08:42 | HMH.ACPN2 ---
Internal Medicine - PN: Subj *Date: 08/19/21 *Time: 08:42 Interval history: Patient is comfortable, lying flat in bed, with no dyspnea. Her main concern this morning was the air conditioning vent blowing directly on her face. Exam Vital signs and Labs for Last 24 Hours: Temp Pulse Resp BP Pulse Ox 98.1 F 63 17 164/54 H 99 08/19/21 04:25 08/19/21 04:25 08/19/21 04:25 08/19/21 04:25 08/19/21 04:25 Laboratory Results - last 24 hr 08/18/21 09:30: Troponin I 0.01 08/18/21 11:25: POC Glucose 84 08/18/21 16:17: POC Glucose 136 H 08/18/21 20:47: POC Glucose 119 H 08/19/21 05:55: Sodium 140, Potassium 4.0, Chloride 103, Carbon Dioxide 30, Anion Gap 11.0, BUN 55 H, Creatinine 3.20 H, Estimated Creat Clear 13, Estimated GFR 14 L*, Est GFR ( Amer) 17 L*, Glucose 115 H, Calcium 8.4 08/19/21 06:42: POC Glucose 118 H I & O for Last 24 hours: Intake & Output 08/16/21 08/17/21 08/18/21 08/19/21 11:59 11:59 11:59 11:59 Intake Total 60 / 60 480 / 480 Output Total 2100 / 2100 1100 / 1100 Balance -2040 / -2040 -620 / -620 Weight 245 lb 5.992 oz 240 lb 1.334 oz Narrative: Patient is comfortable. Does not seem to be breathing hard. Lungs have some rhonchi, heart rate regular. Blood pressure has improved slightly. She has her normal edema but not over baseline. She is neurologically intact. Assessment and Plan (1) CHF (congestive heart failure) Status: Chronic Qualifiers: Heart failure type: unspecified Heart failure chronicity: acute on chronic Qualified Code(s): I50.9 - Heart failure, unspecified Category: Medical Code(s): I50.9 - Heart failure, unspecified (2) Obesity Status: Acute Qualifiers: Obesity type: due to excess calories Obesity classification: adult class 3 (BMI >= 40) Serious obesity comorbidity presence: with serious comorbidity Body mass index: BMI 40.0-44.9 Qualified Code(s): E66.01 - Morbid (severe) obesity due to excess calories; Z68.41 - Body mass index [BMI] 40.0-44.9, adult Category: Medical Code(s): E66.9 - Obesity, unspecified (3) Insulin dependent diabetes mellitus Status: Chronic Category: Medical (4) CKD (chronic kidney disease) stage 5, GFR less than 15 ml/min Status: Acute Category: Medical Code(s): N18.5 - Chronic kidney disease, stage 5 (5) Elevated brain natriuretic peptide (BNP) level Status: Chronic Category: Medical Code(s): R79.89 - Other specified abnormal findings of blood chemistry (6) Hypertensive heart disease Status: Chronic Qualifiers: Heart failure presence: with heart failure Qualified Code(s): I11.0 - Hypertensive heart disease with heart failure Category: Medical Code(s): I11.9 - Hypertensive heart disease without heart failure (7) Diabetes mellitus Problem details: Status: Chronic Qualifiers: Diabetes mellitus type: type 2 Diabetes mellitus superintendent marine oil terminal insulin use: without correction use Diabetes mellitus complication status: without complication Qualified Code(s): E11.9 - Type 2 diabetes mellitus without complications Category: Medical Code(s): E11.9 - Type 2 diabetes mellitus without complications (8) WONG (obstructive sleep apnea) Status: Chronic Category: Medical Code(s): G47.33 - Obstructive sleep apnea (adult) (pediatric) (9) Pulmonary hypertension Status: Chronic Category: Medical Code(s): I27.20 - Pulmonary hypertension, unspecified - Assessment and plan all Dx Assessment and Plan for all problems:: Cardiology has recommended transfer to for initiation of dialysis. Patient's electrolytes are stable this morning. Her creatinine has gone up with compensatory reduction in her GFR. She is on the list for transfer to . Continue to await bed availability.
--- NOTE | 2021-08-19 10:19 | HMH.PNCARD ---
Subjective Date: 08/19/21 Time: 09:45 Principal diagnosis: CHF, ESRD Interval history: This is a 71-year-old white female who presented to the emergency department complaints of shortness of breath. The patient was found to be in congestive heart failure and also has end-stage renal disease. The patient was diuresed with chlorothiazide and Lasix yesterday. She did have out 3200 mL yesterday for -2660 fluid balance. She is down 5 pounds today. She states that she has had no improvement in her shortness of breath. She states that she is short of breath all the time and feels like she is gasping for air. She denies any chest pain or pressure. The patient states that she is unable to lie flat because of her shortness of breath and feeling like she is gasping. She states when they take the oxygen off of her her symptoms are worse. She does have some lower extremity edema but this has improved. She denies any fever, chills, nausea, vomiting, diarrhea. Given her CHF and end-stage renal disease it has been recommended that the patient be transferred to a tertiary care facility to initiate dialysis. The patient has been accepted by [facility] and we are currently awaiting a bed. Exam Vital signs and Labs for Last 24 Hours: Temp Pulse Resp BP Pulse Ox 98.7 F 61 16 181/78 H 96 08/19/21 08:00 08/19/21 08:00 08/19/21 08:00 08/19/21 08:00 08/19/21 08:00 Laboratory Results - last 24 hr 08/18/21 11:25: POC Glucose 84 08/18/21 16:17: POC Glucose 136 H 08/18/21 20:47: POC Glucose 119 H 08/19/21 05:55: Sodium 140, Potassium 4.0, Chloride 103, Carbon Dioxide 30, Anion Gap 11.0, BUN 55 H, Creatinine 3.20 H, Estimated Creat Clear 13, Estimated GFR 14 L*, Est GFR ( Amer) 17 L*, Glucose 115 H, Calcium 8.4 08/19/21 06:42: POC Glucose 118 H I & O for Last 24 hours: Intake & Output 08/16/21 08/17/21 08/18/21 08/19/21 23:59 23:59 23:59 23:59 Intake Total 540 / 540 Output Total 3200 / 3200 600 / 600 Balance -2660 / -2660 -600 / -600 Weight 245 lb 5.992 oz 240 lb 1.334 oz - Constitutional no acute distress, morbidly obese - *Routine HEENT Exam Head: Present: normocephalic, atraumatic Eye: Present: EOMI, PERRL ENT: Present: mucous membranes moist - *Routine Neck Exam Present: supple, full ROM, normal carotid upstroke. Absent: JVD, carotid bruit, lymphadenopathy - *Routine Respiratory Exam Present: CTA bilaterally - *Routine Cardiovascular Exam Present: RRR, Normal S1, Normal S2. Absent: murmur - *Routine Abdominal Exam Present: soft, normoactive bowel sounds. Absent: tenderness, distended - *Routine Extremities Exam Present: edema, full ROM, pulses intact, normal capillary refill. Absent: cyanosis, clubbing - *Routine Skin Exam Present: intact, warm. Absent: erythema, rash - *Routine Neurological Exam Present: alert, oriented X3, CN II-XII intact. Absent: sensory deficit, motor deficit Progress Note: A&P (1) Shortness of breath Status: Acute (2) CHF (congestive heart failure) Status: Chronic (3) Pulmonary hypertension Status: Chronic (4) Obesity Status: Acute (5) Insulin dependent diabetes mellitus Status: Chronic (6) CKD (chronic kidney disease) stage 5, GFR less than 15 ml/min Status: Acute (7) Elevated brain natriuretic peptide (BNP) level Status: Chronic (8) Hypertensive heart disease Status: Chronic (9) Diabetes mellitus Problem details: Status: Chronic (10) WONG (obstructive sleep apnea) Status: Chronic Assessment and Plan for All Diagnoses:: Plan: 1. The patient presented to the emergency department complaints of shortness of breath and lower extremity edema. She was so short of breath that woke her up from her sleep. The patient was diuresed with chlorothiazide and Lasix yesterday. She had about 3200 milliliters of urine yesterday for -2660 fluid balance. The patient's weight has gone down 5 pounds overnight
[2021-08-19 19:56] LABS: POC Glucose,Bedside 135 (70-110)
[2021-08-19 21:01] LABS: POC Glucose,Bedside 103 (70-110)
[2021-08-20] VITALS: BP 181/78; PULSE 60; RESP 18; TEMP 36.8; O2SAT 97
[2021-08-20 04:00] VITALS: BP 189/90; PULSE 60; PULSE 72; RESP 19; TEMP 36.6; O2SAT 97
[2021-08-20 04:26] VITALS: BMI 40.4
[2021-08-20 05:27] LABS: POC Glucose,Bedside 116 (70-110)
[2021-08-20 05:42] LABS: Basophils # 0.1 K/mm3 (0-0.2); Basophils % 0.8 % (0.1-2.0); Eosinophils # 0.3 K/mm3 (0.0-0.4); Eosinophils % 3.3 % (0.1-12.0); Hematocrit 30.2 % (37.0-47.0); Hemoglobin 9.6 g/dL (12.2-16.2); Lymphocytes # 1.8 K/mm3 (0.7-4.5); Lymphocytes % 17.5 % (10-50); Mean Corpuscular HGB Conc 31.6 g/dL (31.8-35.4); Mean Corpuscular Hemoglobin 31.7 pg (27.0-31.2); Mean Corpuscular Volume 100.1 fl (81-99); Mean Platelet Volume 8.4 fl (7.4-10.4); Monocytes # 0.7 K/mm3 (0.1-1.0); Monocytes % 6.6 % (1.7-9.3); Neutrophils # 7.3 K/mm3 (1.8-7.8); Neutrophils % 71.8 % (37.0-80.0); Platelet Count 365 K/mm3 (142-424); Red Blood Count 3.02 M/mm3 (4.20-5.40); Red Cell Distribution Width 13.9 % (11.5-17.5); White Blood Count 10.2 K/mm3 (4.8-10.8)
[2021-08-20 05:50] LABS: Chloride 99 mmol/L (98-107); Sodium 139 mmol/L (136-145)
[2021-08-20 05:51] LABS: Potassium 3.9 mmoL/L (3.5-5.1)
[2021-08-20 05:53] LABS: Blood Urea Nitrogen 66 mg/dl (7-17); Creatinine Clearance Estimated 13 mL/min (50-200); Estimated Glomerular Filt Rate 14 ml/min (>60); GFR (African American) 17 ML/MIN (>60)
[2021-08-20 05:54] LABS: Anion Gap 11.9 mEq/L (5-15); Carbon Dioxide 32 mmol/L (22.0-30.0); Glucose 121 mg/dl (74-100)
[2021-08-20 08:00] VITALS: BP 176/66; PULSE 59; PULSE 72; RESP 18; TEMP 36.9; O2SAT 99
--- NOTE | 2021-08-20 08:52 | HMH.DCSUM ---
General - General Admission date:: 08/18/21 Discharge date: 08/20/21 HPI HPI: 71-year-old white female with known history of chronic kidney disease, stage IV, along with diastolic CHF and significant hypertension. Over the past 24 hours she has had increasing worsening of her dyspnea, chest pressure and lower extremity edema. Blood pressure was also very high at home, came to the hospital where she was evaluated in the ER and found to have elevated BNP levels, elevated blood pressure and increasing swelling of her leg as well as slight worsening of her creatinine. Given IV Lasix and admitted to hospital for further evaluation, monitoring, echocardiogram and cardiology consultation. Hospital Course Hospital Course: Patient was admitted, placed on oxygen therapy. Cardiology was consulted because of her history of CHF and her current exacerbation. They initially felt that she would benefit from transfer to [facility] for initiation of dialysis given her GFR of 16 but did not have a bed for patient and she was placed on a waiting list. At that point it was decided to attempt high-dose IV diuretics to see if she would have a response. She did and over the next couple of days with intravenous diuretics and her normal p.o. torsemide and metolazone and lost 7 pounds and felt much better vis-?-vis breathing. This morning she is comfortable. Electrolytes were not unbalanced at all, with normal potassium. No evidence of telemetry monitoring problems and good p.o. intake and urine output. Given the fact that she has a nephrology appointment tomorrow at the [facility] and bed availability is still an issue and she has responded to IV diuretics and is in a much better place hemodynamically and from a respiratory standpoint she will be discharged home today with her regular diuretic dose, low-salt diet and short-term follow-up tomorrow at the [facility] nephrology department. Her labs and x-rays have been printed for to take to that appointment so that they can decide whether or not more urgent dialysis is warranted. Objective Vital signs: Temp Pulse Resp BP Pulse Ox 98.4 F 59 L 18 176/66 H 99 08/20/21 08:00 08/20/21 08:00 08/20/21 08:00 08/20/21 08:00 08/20/21 08:00 no acute distress, morbidly obese - *Routine HEENT Exam Head: Present: normocephalic Eye: Present: EOMI, PERRL ENT: Present: mucous membranes moist - *Routine Neck Exam Present: supple - *Routine Respiratory Exam Present: CTA bilaterally - *Routine Cardiovascular Exam Present: RRR - *Routine Abdominal Exam Present: soft, normoactive bowel sounds. Absent: tenderness - *Routine Extremities Exam Absent: cyanosis, clubbing, edema - *Routine Skin Exam Present: warm. Absent: rash - Detailed Eye Exam Eyelids: Bilateral normal inspection Results Labs on day of discharge: Labs from last 24 hours 08/20/21 08/20/21 08/20/21 05:20 05:09 05:09 WBC 10.2 D RBC 3.02 L Hgb 9.6 L Hct 30.2 L MCV 100.1 H MCH 31.7 H MCHC 31.6 L RDW 13.9 Plt Count 365 MPV 8.4 Neut % (Auto) 71.8 Lymph % (Auto) 17.5 Sequoyah % (Auto) 6.6 Eos % (Auto) 3.3 Baso % (Auto) 0.8 Neut # (Auto) 7.3 Lymph # (Auto) 1.8 Sequoyah # (Auto) 0.7 Eos # (Auto) 0.3 Baso # (Auto) 0.1 Sodium 139 Potassium 3.9 Chloride 99 Carbon Dioxide 32 H Anion Gap 11.9 BUN 66 H Creatinine 3.20 H Estimated Creat Clear 13 Estimated GFR 14 L* Est GFR ( Amer) 17 L* Glucose 121 H POC Glucose 116 H Calcium 9.0 08/19/21 08/19/21 20:50 12:32 WBC RBC Hgb Hct MCV MCH MCHC RDW Plt Count MPV Neut % (Auto) Lymph % (Auto) Sequoyah % (Auto) Eos % (Auto) Baso % (Auto) Neut # (Auto) Lymph # (Auto) [place]oyah # (Auto) Eos # (Auto) Baso # (Auto) Sodium Potassium Chloride Carbon Dioxide Anion
--- NOTE | 2021-08-20 09:10 | HMH.PNCARD ---
Subjective Date: 08/20/21 Time: 08:30 Principal diagnosis: CHF, ESRD Interval history: This is a 71-year-old white female who presented to the emergency department complaints of shortness of breath. She was diuresed with IV Lasix and chlorothiazide and then subsequently started on oral metolazone and torsemide yesterday. The patient had a -1040 mL fluid balance overnight her weight is down 12 pounds since admission. The patient was being worked up to be transferred to [facility] for initiation of dialysis. Her renal function has remained stable and she has diuresed and is down 12 pounds today. She has an appointment with nephrology tomorrow at [facility] so we feel it is reasonable to let the patient go home today and see her installation & maintenance executive tomorrow to discuss her renal function and hopefully get her started on dialysis as an outpatient. This morning she states her shortness of breath is better. She is laying flat when I walk in the room with no complaints of shortness of breath. She denies any chest pain or pressure. She denies any lower extremity edema. She denies any fever, chills, nausea, vomiting or diarrhea. Exam Vital signs and Labs for Last 24 Hours: Temp Pulse Resp BP Pulse Ox 98.4 F 59 L 18 176/66 H 99 08/20/21 08:00 08/20/21 08:00 08/20/21 08:00 08/20/21 08:00 08/20/21 08:00 Laboratory Results - last 24 hr 08/19/21 12:32: POC Glucose 135 H 08/19/21 20:50: POC Glucose 103 08/20/21 05:09: WBC 10.2 D, RBC 3.02 L, Hgb 9.6 L, Hct 30.2 L, MCV 100.1 H, MCH 31.7 H, MCHC 31.6 L, RDW 13.9, Plt Count 365, MPV 8.4, Neut % (Auto) 71.8, Lymph % (Auto) 17.5, [place] % (Auto) 6.6, Eos % (Auto) 3.3, Baso % (Auto) 0.8, Neut # (Auto) 7.3, Lymph # (Auto) 1.8, [place] # (Auto) 0.7, Eos # (Auto) 0.3, Baso # (Auto) 0.1 08/20/21 05:09: Sodium 139, Potassium 3.9, Chloride 99, Carbon Dioxide 32 H, Anion Gap 11.9, BUN 66 H, Creatinine 3.20 H, Estimated Creat Clear 13, Estimated GFR 14 L*, Est GFR ( Amer) 17 L*, Glucose 121 H, Calcium 9.0 08/20/21 05:20: POC Glucose 116 H I & O for Last 24 hours: Intake & Output 08/17/21 08/18/21 08/19/21 08/20/21 23:59 23:59 23:59 23:59 Intake Total 540 / 540 960 / 960 480 / 480 Output Total 3200 / 3200 1999 / 1999 900 / 900 Balance -2660 / -2660 -1040 / -1040 -420 / -420 Weight 245 lb 5.992 oz 240 lb 1.334 oz 233 lb 11.04 oz - Constitutional no acute distress, morbidly obese - *Routine HEENT Exam Head: Present: normocephalic, atraumatic Eye: Present: EOMI, PERRL ENT: Present: mucous membranes moist - *Routine Neck Exam Present: supple, full ROM, normal carotid upstroke. Absent: JVD, carotid bruit, lymphadenopathy - *Routine Respiratory Exam Present: CTA bilaterally - *Routine Cardiovascular Exam Present: RRR, Normal S1, Normal S2. Absent: murmur - *Routine Abdominal Exam Present: soft, normoactive bowel sounds. Absent: tenderness, distended - *Routine Extremities Exam Present: full ROM, pulses intact, normal capillary refill. Absent: cyanosis, clubbing, edema - *Routine Skin Exam Present: intact, warm. Absent: erythema, rash - *Routine Neurological Exam Present: alert, oriented X3, CN II-XII intact. Absent: sensory deficit, motor deficit Progress Note: A&P (1) Shortness of breath Status: Acute (2) CHF (congestive heart failure) Status: Chronic (3) Pulmonary hypertension Status: Chronic (4) Obesity Status: Acute (5) Insulin dependent diabetes mellitus Status: Chronic (6) CKD (chronic kidney disease) stage 5, GFR less than 15 ml/min Status: Acute (7) Elevated brain natriuretic peptide (BNP) level Status: Chronic (8) Hypertensive heart disease Status: Chronic (9) Diabetes mellitus Problem details: Status: Chronic (10) WONG (obstructive sleep apnea) Status: Chronic Assessment and Plan for All Diagnoses:: Plan: 1. Patient presented to the emergency department shortness of breath and low
[2021-08-20 09:56] LABS: Chloride 98 mmol/L (98-107); Sodium 137 mmol/L (136-145)
[2021-08-20 09:57] LABS: Potassium 3.8 mmoL/L (3.5-5.1)
[2021-08-20 09:59] LABS: Blood Urea Nitrogen 66 mg/dl (7-17); Creatinine Clearance Estimated 13 mL/min (50-200); Estimated Glomerular Filt Rate 14 ml/min (>60); GFR (African American) 17 ML/MIN (>60)
[2021-08-20 10:00] LABS: Anion Gap 12.8 mEq/L (5-15); Calcium 8.9 mg/dl (8.4-10.2); Carbon Dioxide 30 mmol/L (22.0-30.0); Glucose 201 mg/dl (74-100)
[2021-08-20 10:27] VITALS: O2SAT 85
--- NOTE | 2021-08-20 10:47 | SW/DCPLANNER ---
SET UP HOME 02 FOR THIS PATIENT WHO IS DISCHARGING HOME TODAY.... A PORTABLE TANK WILL BE DELIVERED TO THE HOSPITAL PRIOR TO LEAVING THE HOSPITAL... [facility] WILL BE PROVING THE TANK PER PATIENT CHOICE...
== END 2021-08-20 13:34 | disposition home or self-care (01) | DRG 291 ==
LOC: ER 04:37 → 2ND 04:47
PROVIDERS: Nurse Practitioner Family; Admitting Provider Internal Medicine Adolescent Medicine; Emergency Provider Emergency Medicine; PCP Internal Medicine Adolescent Medicine; Visit Provider Internal Medicine Adolescent Medicine
DX: I13.2 Hypertensive heart and chronic kidney disease with heart failure and with stage 5 chronic kidney disease, or end stage renal disease (principal); N18.6 End stage renal disease; I50.33 Acute on chronic diastolic (congestive) heart failure; Z68.41 Body mass index [BMI] 40.0-44.9, adult; E11.22 Type 2 diabetes mellitus with diabetic chronic kidney disease; I27.20 Pulmonary hypertension, unspecified; G47.33 Obstructive sleep apnea (adult) (pediatric); K21.9 Gastro-esophageal reflux disease without esophagitis; E78.5 Hyperlipidemia, unspecified; M19.90 Unspecified osteoarthritis, unspecified site; E66.01 Morbid (severe) obesity due to excess calories; Z20.822 Contact with and (suspected) exposure to COVID-19
CPT/HCPCS: 36415; 71046; 80048; 80076; 81001; 82962; 83735; 83880; 84145; 84484; 85007; 85025; 85651; 86140; 93005; 93306; 96374; 96375; 99283; C9803; J1205; J2405; U0003; U0005

== ENCOUNTER → 2021-09-30 09:53 | Outpatient (CLI) | payer MEDICARE, SELFPAY ==
[2021-09-30 10:08] LABS: Microscopic, Urine URINE MICROSCOPIC (MICROSCOPIC)
[2021-09-30 10:43] LABS: Appearance,Urine CLEAR (Clear); Bilirubin,Urine Negative (Negative); Blood, Urine Negative (Negative); Color,Urine YELLOW (Yellow); Glucose,Urine (UA) Negative (Negative); Ketones,Urine Negative (Negative); Leukocyte Esterase,Urine Negative (Negative); Nitrate,Urine Negative (Negative); Protein,Urine 1+ (Negative); Urobilinogen,Urine 0.2 EU/dl (0.2)
[2021-09-30 10:46] LABS: Hemoglobin 9.5 g/dL (12.2-16.2); Mean Corpuscular HGB Conc 31.8 g/dL (31.8-35.4); Mean Corpuscular Hemoglobin 31.4 pg (27.0-31.2); Mean Corpuscular Volume 98.9 fl (81-99); Platelet Count 394 K/mm3 (142-424); Red Blood Count 3.04 M/mm3 (4.20-5.40); Red Cell Distribution Width 13.7 % (11.5-17.5); White Blood Count 10.9 K/mm3 (4.8-10.8)
[2021-09-30 10:51] LABS: Creatinine,Urine Random 42 mg/dL (Not Estab.)
[2021-09-30 11:14] LABS: Albumin Level 3.7 g/dl (3.5-5.0); Anion Gap 14.6 mEq/L (5-15); Blood Urea Nitrogen 73 mg/dl (7-17); Calcium 9.2 mg/dl (8.4-10.2); Carbon Dioxide 29 mmol/L (22.0-30.0); Chloride 101 mmol/L (98-107); Estimated Glomerular Filt Rate 15 ml/min (>60); GFR (African American) 18 ML/MIN (>60); Glucose 172 mg/dl (74-100); Phosphorous 5.7 mg/dl (2.5-4.5); Potassium 4.6 mmoL/L (3.5-5.1); Sodium 140 mmol/L (136-145)
[2021-09-30 11:18] LABS: Squamous Epithelial Cell,Urine Occasional #/hpf (0-5)
[2021-09-30 11:20] LABS: Total Iron Binding Capacity 229 ug/dL (265-497)
[2021-09-30 18:33] LABS: Ferritin 141 ng/ml (11.1-264)
== END ==
PROVIDERS: PCP Internal Medicine Adolescent Medicine; Visit Provider Internal Medicine Nephrology
DX: N18.4 Chronic kidney disease, stage 4 (severe) (principal)
CPT/HCPCS: 36415; 80069; 81001; 82570; 82728; 83550; 84155; 85014; 85018; 85048; 85049

== ENCOUNTER → 2021-10-06 14:58 | Outpatient (POV) | payer MEDICARE, SELFPAY | PROVIDERS: Visit Provider Internal Medicine Nephrology | DX: Z00.00 Encounter for general adult medical examination without abnormal findings (principal) ==

== ENCOUNTER → 2021-10-14 10:25 | Outpatient (CLI) | payer MEDICARE, SELFPAY | PROVIDERS: Visit Provider Surgery Vascular Surgery | DX: Z01.812 Encounter for preprocedural laboratory examination (principal); Z11.52 Encounter for screening for COVID-19 | CPT/HCPCS: C9803; U0003; U0005 ==

== ENCOUNTER → 2021-11-03 08:12 | Outpatient (CLI) | payer MEDICARE, SELFPAY ==
[2021-11-03 08:18] VITALS: BMI 39.9
[2021-11-03 08:38] LABS: Hematocrit 27.6 % (37.0-47.0); Hemoglobin 8.7 g/dL (12.2-16.2)
--- NOTE | 2021-11-03 10:25 | PC.NURSE ---
1025-per lab pt will need special type of blood that will have to be ordered from [facility] and will not arrive til tonight; pt to return tomorrow morning for blood transfusion.
--- NOTE | 2021-11-03 13:33 | US_ITS ---
FINAL REPORT CLINICAL HISTORY: THYROID NODULE; sore throat and difficulty swallowing FINDINGS: THYROID ULTRASOUND Sonographic images of the thyroid was obtained. The right lobe of the thyroid measures 4.4 x 2.2 x 1.7 cm. The left lobe of the thyroid measures 4.8 x 2.9 x 2.1 cm. The isthmus measures 5 mm. There is a right upper lobe spongiform nodule measuring 1.3 x 1.4 x 1.9 cm, TI-RADS 1. There is a left upper lobe with predominantly cystic nodule measuring 1.4 x 1.8 x 1.7 cm, TI-RADS 1. There is a left mid lobe solid hypoechoic nodule measuring 2.0 x 1.8 x 1.4 cm, TI-RADS 4. There is a left lower lobe spongiform nodule measuring 2.0 x 2.0 x 1.8 cm, TI-RADS 1. IMPRESSION: Multiple nodules bilaterally. Recommend ultrasound-guided FNA of the dominant left TI-RADS 4 nodule. Reviewed, Interpreted and Dictated by Tarun Walters III, MD Transcribed by Brandy Patel Authenticated by Tarun Walters III, MD on 11/03/2021 03:45:50 PM [facility]
== END ==
PROVIDERS: PCP Internal Medicine Adolescent Medicine; Visit Provider Nurse Practitioner Family
DX: E04.1 Nontoxic single thyroid nodule (principal); D63.1 Anemia in chronic kidney disease; N18.4 Chronic kidney disease, stage 4 (severe)
CPT/HCPCS: 76536; 85014; 85018; 86850

== ENCOUNTER 2021-11-05 08:34 | Outpatient (CLI) | payer MEDICARE, SELFPAY ==
[2021-11-05] VITALS (19 sets, daily range): BP systolic 132–206; BP diastolic 58–99; PULSE 61–68; RESP 18–22; TEMP 35.7–36.2; O2SAT 94–95; BMI 39.9
--- NOTE | 2021-11-05 09:30 | PC.NURSE ---
929-notified bess gu aprn of pt's blood pressure; stated if pt is asymptomatic and blood pressure stays down pt needs to just take bp meds at home as prescribed; if pt becomes symptomatic and bp goes back up notify her again.
[2021-11-05 15:28] LABS: Hematocrit 29.9 % (37.0-47.0); Hemoglobin 9.8 g/dL (12.2-16.2)
== END 2021-11-05 15:05 | disposition home or self-care (01) ==
LOC: INF 08:35
PROVIDERS: PCP Internal Medicine Adolescent Medicine; Visit Provider Nurse Practitioner Family
DX: N18.4 Chronic kidney disease, stage 4 (severe) (principal); D63.1 Anemia in chronic kidney disease
CPT/HCPCS: 36430; 85014; 85018; 96375; P9016

== ENCOUNTER → 2021-11-19 08:04 | Outpatient (CLI) | payer MEDICARE, SELFPAY ==
--- NOTE | 2021-11-19 08:13 | US_ITS ---
FINAL REPORT CLINICAL HISTORY: fna lt thyroid nodule -- Darby fuentes FINDINGS: ULTRASOUND GUIDED LEFT THYROID NODULE BIOPSY HISTORY: Left thyroid nodule. ATTENDING PHYSICIAN: Dr. Walters PHYSICIAN ELECTROCARDIOGRAPHIC TECHNICIAN: Darby Mendez PA-C TECHNIQUE: Informed consent was obtained from the patient. A timeout procedure was performed. Limited sonographic evaluation of thyroid gland was performed to localize lesion of interest. The neck was prepped in a routine sterile fashion and locally anesthetized with 1% lidocaine. FNA was performed with 25-gauge needle under direct sonographic visualization. 3 passes were made. Cytology is pending. Procedure was well tolerated. CONCLUSION: 1. Technically successful thyroid fine needle aspiration of left thyroid nodule. Reviewed, Interpreted and Dictated by Tarun Walters III, MD Transcribed by Darby Mendez PA-C Authenticated by Tarun Walters III, MD on 11/19/2021 12:37:39 PM [facility]
== END ==
PROVIDERS: PCP Internal Medicine Adolescent Medicine; Visit Provider Nurse Practitioner Family
DX: E04.1 Nontoxic single thyroid nodule (principal)
CPT/HCPCS: 10005; 76536; 88173; 88305

== ENCOUNTER → 2021-11-24 11:06 | Outpatient (CLI) | payer MEDICARE, SELFPAY ==
[2021-11-24 11:17] LABS: Microscopic, Urine URINE MICROSCOPIC (MICROSCOPIC)
[2021-11-24 11:54] LABS: Appearance,Urine CLEAR (Clear); Bilirubin,Urine Negative (Negative); Blood, Urine TRACE-I (Negative); Color,Urine YELLOW (Yellow); Glucose,Urine (UA) Negative (Negative); Ketones,Urine Negative (Negative); Leukocyte Esterase,Urine Negative (Negative); Nitrate,Urine Negative (Negative); PH,Urine 5.5 (5.0-8.5); Protein,Urine 2+ (Negative); Specific Gravity, Urine 1.015 (1.005-1.030); Urobilinogen,Urine 0.2 EU/dl (0.2)
[2021-11-24 11:56] LABS: Hemoglobin 10.4 g/dL (12.2-16.2); Mean Corpuscular HGB Conc 32.5 g/dL (31.8-35.4); Mean Corpuscular Hemoglobin 32.1 pg (27.0-31.2); Mean Corpuscular Volume 98.8 fl (81-99); Platelet Count 387 K/mm3 (142-424); Red Blood Count 3.23 M/mm3 (4.20-5.40); Red Cell Distribution Width 14.4 % (11.5-17.5); White Blood Count 9.9 K/mm3 (4.8-10.8)
[2021-11-24 12:37] LABS: Albumin Level 3.7 g/dl (3.5-5.0); Anion Gap 10.9 mEq/L (5-15); Blood Urea Nitrogen 70 mg/dl (7-17); Calcium 8.7 mg/dl (8.4-10.2); Carbon Dioxide 30 mmol/L (22.0-30.0); Chloride 104 mmol/L (98-107); Estimated Glomerular Filt Rate 12 ml/min (>60); GFR (African American) 14 ML/MIN (>60); Glucose 172 mg/dl (74-100); Phosphorous 4.9 mg/dl (2.5-4.5); Potassium 4.9 mmoL/L (3.5-5.1); Sodium 140 mmol/L (136-145)
== END ==
PROVIDERS: Visit Provider Internal Medicine Nephrology
DX: N18.4 Chronic kidney disease, stage 4 (severe) (principal)
CPT/HCPCS: 36415; 80069; 81001; 85014; 85018; 85048; 85049

== ENCOUNTER → 2021-11-27 14:51 | Outpatient (POV) | payer MEDICARE, SELFPAY | PROVIDERS: Visit Provider Internal Medicine Nephrology | DX: Z00.00 Encounter for general adult medical examination without abnormal findings (principal) ==

== ENCOUNTER → 2021-12-05 10:36 | Outpatient (CLI) | payer MEDICARE, SELFPAY | PROVIDERS: Visit Provider Surgery Vascular Surgery | DX: Z01.812 Encounter for preprocedural laboratory examination (principal); Z11.52 Encounter for screening for COVID-19 | CPT/HCPCS: C9803; U0003; U0005 ==

== ENCOUNTER → 2021-12-24 11:13 | Outpatient (CLI) | payer MEDICARE, SELFPAY ==
[2021-12-24 11:24] LABS: Microscopic, Urine URINE MICROSCOPIC (MICROSCOPIC)
[2021-12-24 12:02] LABS: Hematocrit 29.8 % (37.0-47.0); Hemoglobin 9.6 g/dL (12.2-16.2); Mean Corpuscular HGB Conc 32.3 g/dL (31.8-35.4); Mean Corpuscular Hemoglobin 32.6 pg (27.0-31.2); Mean Corpuscular Volume 100.8 fl (81-99); Platelet Count 513 K/mm3 (142-424); Red Blood Count 2.95 M/mm3 (4.20-5.40); Red Cell Distribution Width 14.9 % (11.5-17.5); White Blood Count 10.3 K/mm3 (4.8-10.8)
[2021-12-24 12:36] LABS: Chloride 102 mmol/L (98-107); Potassium 5.2 mmoL/L (3.5-5.1); Sodium 139 mmol/L (136-145)
[2021-12-24 12:37] LABS: Albumin Level 3.7 g/dl (3.5-5.0)
[2021-12-24 12:39] LABS: Anion Gap 14.2 mEq/L (5-15); Blood Urea Nitrogen 71 mg/dl (7-17); Calcium 9.3 mg/dl (8.4-10.2); Carbon Dioxide 28 mmol/L (22.0-30.0); Estimated Glomerular Filt Rate 14 ml/min (>60); GFR (African American) 17 ML/MIN (>60); Glucose 144 mg/dl (74-100); Phosphorous 5.5 mg/dl (2.5-4.5)
[2021-12-24 12:41] LABS: Appearance,Urine SL CLOUDY (Clear); Bilirubin,Urine Negative (Negative); Blood, Urine 1+ (Negative); Color,Urine YELLOW (Yellow); Glucose,Urine (UA) Negative (Negative); Ketones,Urine Negative (Negative); Leukocyte Esterase,Urine Negative (Negative); Nitrate,Urine Negative (Negative); Protein,Urine 2+ (Negative); Urobilinogen,Urine 0.2 EU/dl (0.2)
[2021-12-24 12:54] LABS: Creatinine,Urine Random 50 mg/dL (Not Estab.)
[2021-12-24 13:06] LABS: Bacteria,Urine Trace /lpf; WBC,Urine Occasional #/hpf (0-3)
[2021-12-24 13:14] LABS: Ferritin 170 ng/ml (11.1-264)
[2021-12-24 14:55] LABS: Total Iron Binding Capacity 235 ug/dL (265-497)
== END ==
PROVIDERS: PCP Internal Medicine Adolescent Medicine; Visit Provider Internal Medicine Nephrology
DX: N18.5 Chronic kidney disease, stage 5 (principal); D63.1 Anemia in chronic kidney disease
CPT/HCPCS: 36415; 80069; 81001; 82570; 82728; 83550; 84155; 85014; 85018; 85048; 85049

== ENCOUNTER → 2021-12-29 15:34 | Outpatient (POV) | payer MEDICARE, SELFPAY | PROVIDERS: Visit Provider Internal Medicine Nephrology | DX: Z00.00 Encounter for general adult medical examination without abnormal findings (principal) ==

== ENCOUNTER → 2022-01-19 09:34 | Outpatient (CLI) | payer MEDICARE, SELFPAY ==
[2022-01-19 09:43] LABS: Microscopic, Urine URINE MICROSCOPIC (MICROSCOPIC)
[2022-01-19 09:56] LABS: Appearance,Urine CLEAR (Clear); Bilirubin,Urine Negative (Negative); Blood, Urine TRACE-I (Negative); Color,Urine YELLOW (Yellow); Glucose,Urine (UA) Negative (Negative); Ketones,Urine Negative (Negative); Leukocyte Esterase,Urine Negative (Negative); Nitrate,Urine Negative (Negative); PH,Urine 5.5 (5.0-8.5); Protein,Urine 1+ (Negative); Specific Gravity, Urine 1.015 (1.005-1.030); Urobilinogen,Urine 0.2 EU/dl (0.2)
[2022-01-19 09:59] LABS: Hematocrit 28.1 % (37.0-47.0); Hemoglobin 8.9 g/dL (12.2-16.2); Mean Corpuscular HGB Conc 31.6 g/dL (31.8-35.4); Mean Corpuscular Hemoglobin 31.7 pg (27.0-31.2); Mean Corpuscular Volume 100.4 fl (81-99); Platelet Count 396 K/mm3 (142-424); Red Cell Distribution Width 15.2 % (11.5-17.5); White Blood Count 11.4 K/mm3 (4.8-10.8)
[2022-01-19 10:08] LABS: Bacteria,Urine Trace /lpf
[2022-01-19 10:21] LABS: Albumin Level 3.7 g/dl (3.5-5.0); Anion Gap 17.6 mEq/L (5-15); Calcium 8.4 mg/dl (8.4-10.2); Carbon Dioxide 25 mmol/L (22.0-30.0); Chloride 103 mmol/L (98-107); Estimated Glomerular Filt Rate 10 ml/min (>60); GFR (African American) 13 ML/MIN (>60); Glucose 152 mg/dl (74-100); Phosphorous 8.9 mg/dl (2.5-4.5); Potassium 4.6 mmoL/L (3.5-5.1); Sodium 141 mmol/L (136-145)
[2022-01-19 10:34] LABS: Blood Urea Nitrogen 80 mg/dl (7-17)
== END ==
PROVIDERS: Internal Medicine Nephrology; PCP Internal Medicine Adolescent Medicine; Visit Provider Internal Medicine Nephrology
DX: N18.5 Chronic kidney disease, stage 5 (principal)
CPT/HCPCS: 36415; 80069; 81001; 85014; 85018; 85048; 85049

== ENCOUNTER → 2022-01-22 12:50 | Outpatient (POV) | payer MEDICARE, SELFPAY | PROVIDERS: Visit Provider Internal Medicine Nephrology | DX: Z00.00 Encounter for general adult medical examination without abnormal findings (principal) ==

== ENCOUNTER 2022-02-24 09:43 | Outpatient (CLI) | payer MEDICARE, SELFPAY ==
[2022-02-24 10:15] VITALS: BP 141/63; PULSE 67; RESP 18; TEMP 36.4; O2SAT 98
[2022-02-24 10:55] VITALS: BP 138/61; PULSE 69; RESP 18; O2SAT 97
== END 2022-02-24 11:00 | disposition home or self-care (01) ==
PROVIDERS: PCP Internal Medicine Adolescent Medicine; Visit Provider Internal Medicine Nephrology
DX: N18.4 Chronic kidney disease, stage 4 (severe) (principal); D63.1 Anemia in chronic kidney disease; N18.5 Chronic kidney disease, stage 5
CPT/HCPCS: 96365; J1439

== ENCOUNTER → 2022-02-27 10:13 | Outpatient (CLI) | payer MEDICARE, SELFPAY ==
[2022-02-27 10:21] LABS: Microscopic, Urine URINE MICROSCOPIC (MICROSCOPIC)
[2022-02-27 10:40] LABS: Hematocrit 28.3 % (37.0-47.0); Mean Corpuscular HGB Conc 31.7 g/dL (31.8-35.4); Mean Corpuscular Hemoglobin 32.2 pg (27.0-31.2); Mean Corpuscular Volume 101.7 fl (81-99); Platelet Count 450 K/mm3 (142-424); Red Blood Count 2.78 M/mm3 (4.20-5.40); Red Cell Distribution Width 14.6 % (11.5-17.5); White Blood Count 10.5 K/mm3 (4.8-10.8)
[2022-02-27 10:47] LABS: Appearance,Urine CLEAR (Clear); Bilirubin,Urine Negative (Negative); Blood, Urine 3+ (Negative); Color,Urine YELLOW (Yellow); Glucose,Urine (UA) Negative (Negative); Ketones,Urine Negative (Negative); Leukocyte Esterase,Urine TRACE (Negative); Nitrate,Urine Negative (Negative); Protein,Urine 1+ (Negative); Specific Gravity, Urine 1.015 (1.005-1.030); Urobilinogen,Urine 0.2 EU/dl (0.2)
[2022-02-27 10:53] LABS: Alanine Aminotransferase 11 U/L (12-78); Albumin Level 3.7 g/dl (3.5-5.0); Alkaline Phosphatase 132 U/L (38-126); Aspartate Amino Transferase 15 U/L (14-36); Bilirubin,Indirect 0.2 mg/dL (0.0-0.9); Bilirubin,Total 0.2 mg/dl (0.2-1.3); Bilirubin,Unconjugated 0.5 mg/dL (0.0-1.1); Chol/HDL Ratio 5.1 (1-3.5); Cholesterol 149 mg/dl (140-200); HDL Cholesterol 29 mg/dl (40-60); Total Protein,Serum 6.6 g/dl (6.3-8.2); Triglycerides 302 mg/dl (30-150); VLDL Cholesterol 60 mg/dL (0-40)
[2022-02-27 10:56] LABS: Blood Urea Nitrogen 73 mg/dl (7-17); Calcium 8.8 mg/dl (8.4-10.2); Carbon Dioxide 28 mmol/L (22.0-30.0); Chloride 104 mmol/L (98-107); Estimated Glomerular Filt Rate 11 ml/min (>60); GFR (African American) 14 ML/MIN (>60); Glucose 109 mg/dl (74-100); Phosphorous 5.1 mg/dl (2.5-4.5); Sodium 142 mmol/L (136-145)
[2022-02-27 11:38] LABS: WBC,Urine Occasional #/hpf (0-3)
[2022-02-27 11:39] LABS: Bacteria,Urine 2+ /lpf; RBC,Urine 20-50 #/hpf (0-3)
[2022-02-27 12:14] LABS: Direct LDL Cholesterol 33.71 mg/dL (100-129)
== END ==
PROVIDERS: Internal Medicine Cardiovascular Disease; PCP Internal Medicine Adolescent Medicine; Visit Provider Internal Medicine Nephrology
DX: E11.9 Type 2 diabetes mellitus without complications (principal); G47.33 Obstructive sleep apnea (adult) (pediatric); I11.0 Hypertensive heart disease with heart failure; I27.20 Pulmonary hypertension, unspecified; I50.9 Heart failure, unspecified; N18.4 Chronic kidney disease, stage 4 (severe); R06.09 Other forms of dyspnea; R82.90 Unspecified abnormal findings in urine
CPT/HCPCS: 36415; 80048; 80061; 80076; 81001; 84100; 85014; 85018; 85048; 85049; 87086

== ENCOUNTER → 2022-03-02 12:43 | Outpatient (POV) | payer MEDICARE, SELFPAY | PROVIDERS: Visit Provider Internal Medicine Nephrology | DX: Z00.00 Encounter for general adult medical examination without abnormal findings (principal) ==

== ENCOUNTER → 2022-03-02 14:15 | Outpatient (CLI) | payer MEDICARE, SELFPAY ==
[2022-03-04 18:09] LABS: QuantiFERON-TB Gold Plus Negative (Negative)
[2022-03-10 13:04] LABS: Hep A Ab, IgM NEGATIVE; Hepatitis B Core Antibody IgM NEGATIVE
[2022-03-10 13:05] LABS: Hepatitis B Surface Antigen NEGATIVE
[2022-03-10 13:07] LABS: Hep B Surface Ab, Qual REACTIVE
[2022-03-10 13:08] LABS: Hepatitis C Antibody 0.2
== END ==
PROVIDERS: PCP Internal Medicine Adolescent Medicine; Visit Provider Internal Medicine Nephrology
DX: N18.6 End stage renal disease (principal); Z99.2 Dependence on renal dialysis
CPT/HCPCS: 36415; 80074; 86480; 86706

== ENCOUNTER 2022-03-03 09:33 | Outpatient (CLI) | payer MEDICARE, SELFPAY ==
[2022-03-03 09:58] VITALS: BP 163/84; PULSE 68; RESP 18; TEMP 36.2; O2SAT 97
[2022-03-03 10:40] VITALS: BP 153/59; PULSE 65; RESP 18; O2SAT 97
== END 2022-03-03 10:45 | disposition home or self-care (01) ==
LOC: INF 09:34
PROVIDERS: PCP Internal Medicine Adolescent Medicine; Visit Provider Internal Medicine Nephrology
DX: N18.4 Chronic kidney disease, stage 4 (severe) (principal); N18.5 Chronic kidney disease, stage 5; D63.1 Anemia in chronic kidney disease
CPT/HCPCS: 96365; J1439

== ENCOUNTER → 2022-03-17 10:27 | Outpatient (CLI) | payer MEDICARE, SELFPAY | PROVIDERS: PCP Internal Medicine Adolescent Medicine; Visit Provider Internal Medicine Nephrology | DX: Z20.822 Contact with and (suspected) exposure to COVID-19 (principal); N18.6 End stage renal disease; Z99.2 Dependence on renal dialysis | CPT/HCPCS: C9803; U0003; U0005 ==

== ENCOUNTER → 2022-09-01 12:44 | Outpatient (CLI) | payer MEDICARE, SELFPAY ==
--- NOTE | 2022-09-01 12:56 | MM_ITS ---
PROCEDURE INFORMATION: Exam: MG Bilateral Screening 3D Mammography Exam date and time: 09/01/2022 12:54 PM Age: 72 years old Clinical indication: Screening mammogram TECHNIQUE: Imaging protocol: Bilateral Screening tomosynthesis and 2D mammography including computer-aided detection (CAD) when performed. COMPARISON: 1. MG MM DIG SCREENING MAMM BI W/CAD 06/09/2019 11:18 AM 2. MG SCBI MM Dig screening mamm BI w/CAD 03/22/2018 11:05 AM 3. MG DMSB DIG MAMM-SCREEN LUISA 02/13/2016 11:04 AM 4. MG DMSB DIG MAMM-SCREEN LUISA 01/09/2015 10:56 AM FINDINGS: MAMMOGRAPHY: Breast composition: There are scattered areas of fibroglandular density. Mass: 0.7 cm mass within the upper outer right middle 1/3, not well-delineated on MLO, should be further assessed with spot views in CC/MLO projection. Ultrasound should also be performed. Architectural distortion: No new or suspicious architectural distortion. Calcifications: No new or suspicious calcifications are present Asymmetric density: No new or suspicious asymmetric density is present Skin thickening: None. Axillary adenopathy: None. IMPRESSION: 0.7 cm mass within the upper outer right middle 1/3, not well-delineated on MLO, should be further assessed with spot views in CC/MLO projection. Ultrasound should also be performed. ASSESSMENT: BI-RADS category 0: Incomplete-need additional imaging evaluation
== END ==
PROVIDERS: PCP Internal Medicine Adolescent Medicine; Visit Provider Nurse Practitioner Family
DX: Z12.31 Encounter for screening mammogram for malignant neoplasm of breast (principal)
CPT/HCPCS: 77063; 77067

== ENCOUNTER → 2022-10-01 12:44 | Outpatient (CLI) | payer MEDICARE, SELFPAY ==
--- NOTE | 2022-10-01 12:51 | MM_ITS ---
PROCEDURE INFORMATION: Exam: US Right Breast, Complete MG Right Diagnostic Breast Tomosynthesis Exam date and time: 10/01/2022 12:57 PM Age: 72 years old Clinical indication: Recall on the basis of screening mammogram 09/01/2022 for further evaluation of 0.7 cm mass in the upper outer right middle 3rd. TECHNIQUE: Imaging protocol: Complete ultrasound of all four quadrants of the Right breast and the retroareolar regions, including ultrasound of the axilla when performed. Right Diagnostic tomosynthesis and 2D mammography including computer-aided detection (CAD) when performed. Unilateral or bilateral exam. COMPARISON: 1. MG MM DIG SCREENING MAMM BI W/CAD 09/01/2022 12:54 PM 2. MG MM DIG SCREENING MAMM BI W/CAD 06/09/2019 11:18 AM 3. MG SCBI MM Dig screening mamm BI w/CAD 03/22/2018 11:05 AM 4. MG DMSB DIG MAMM-SCREEN LUISA 02/13/2016 11:04 AM FINDINGS: MAMMOGRAPHY: Spot compression images show an oval 0.4 cm circumscribed mass/asymmetry in the outer breast, CC view with correlate in the provided spot compression in the upper MLO. ULTRASOUND: Right sonography, all 4 quadrants, retroareolar and axilla. At 8 o'clock 10 cm from the nipple, probable complicated cyst or ductal ectasia measuring 1.1 by 1.0 x 0.5 cm At 7 o'clock 8 cm from the nipple and 10 o'clock 10 cm from the nipple, oval superficial echogenic masses, likely lipomas, measuring 0.6 x 0.9 x 0.3 cm 0.9 x 1.0 x 0.5 cm, respectively. Few scattered subcentimeter cysts, at 9 o'clock 3 cm from the nipple, at 10 o'clock 5 cm from the nipple, and at 11 o'clock 2 cm from the nipple. Sonographically unremarkable right axillary lymph node. IMPRESSION: Probably benign mammographic circumscribed mass/asymmetry in the outer aspect of the right breast with may correlate with 1 of the several probably benign sonographic findings from 8-11 o'clock. Probable lipomas at 8 and 10 o'clock. Suggest six-month follow-up right diagnostic mammography and targeted right sonography unless otherwise clinically indicated. ASSESSMENT: BI-RADS Category 3: Probably benign
== END ==
PROVIDERS: PCP Internal Medicine Adolescent Medicine; Visit Provider Nurse Practitioner Family
DX: R92.8 Other abnormal and inconclusive findings on diagnostic imaging of breast (principal)
CPT/HCPCS: 76641; 77061; 77065; G0279

== ENCOUNTER → 2022-12-08 14:13 | Outpatient (CLI) | payer MEDICARE, SELFPAY | PROVIDERS: PCP Internal Medicine Adolescent Medicine; Visit Provider Physician Assistant | DX: R06.09 Other forms of dyspnea (principal); R00.2 Palpitations | CPT/HCPCS: 93225; 93226 ==

== ENCOUNTER → 2022-12-17 14:36 | Outpatient (CLI) | payer MEDICARE, SELFPAY | PROVIDERS: PCP Internal Medicine Adolescent Medicine; Visit Provider Physician Assistant | DX: E11.9 Type 2 diabetes mellitus without complications (principal); G47.33 Obstructive sleep apnea (adult) (pediatric); I11.0 Hypertensive heart disease with heart failure; I27.20 Pulmonary hypertension, unspecified; I50.32 Chronic diastolic (congestive) heart failure; N18.4 Chronic kidney disease, stage 4 (severe); R06.09 Other forms of dyspnea; R60.9 Edema, unspecified; D63.1 Anemia in chronic kidney disease; R00.2 Palpitations; R06.02 Shortness of breath; Z79.4 Long term (current) use of insulin | CPT/HCPCS: 93270; 93306 ==

== ENCOUNTER → 2023-03-30 10:03 | Outpatient (CLI) | payer MEDICARE, SELFPAY ==
--- NOTE | 2023-03-30 10:07 | XR_ITS ---
FINAL REPORT CLINICAL HISTORY: lt shoulder pain, pain for 3 weeks, torn rotator cuff FINDINGS: 3 views of the left shoulder were obtained. There is no acute fracture or dislocation. There are mild and moderate degenerative changes. There are no soft tissue abnormalities. IMPRESSION: No acute process. Reviewed, Interpreted and Dictated by Tarun Walters III, MD Transcribed by Gerhard Rodriguez Authenticated and . [facility]
== END ==
PROVIDERS: PCP Internal Medicine Adolescent Medicine; Visit Provider Orthopaedic Surgery
DX: M25.512 Pain in left shoulder (principal)
CPT/HCPCS: 73030

== ENCOUNTER → 2023-05-11 13:23 | Outpatient (CLI) | payer MEDICARE, SELFPAY ==
--- NOTE | 2023-05-11 13:29 | MM_ITS ---
PROCEDURE INFORMATION: Exam: US Right Breast, Complete MG Right Diagnostic Breast Tomosynthesis Exam date and time: 05/11/2023 2:36 PM Age: 72 years old Clinical indication: Short-term radiographic followup; Right breast mass TECHNIQUE: Imaging protocol: Complete ultrasound of all four quadrants of the right breast and the retroareolar regions, including ultrasound of the axilla when performed. Right Diagnostic tomosynthesis and 2D mammography including computer-aided detection (CAD) when performed. Unilateral or bilateral exam. COMPARISON: US BREAST RT COMPLETE 10/01/2022 1:59 PM FINDINGS: MAMMOGRAPHY: The breast tissue is composed of scattered areas of fibroglandular density. There is no stellate mass, architectural distortion or suspicious microcalcifications in either breast to suggest malignancy. Previously noted 0.4 cm mass only seen in the right lateral breast is not visualized on the current examination. The finding may reflected a cyst that spontaneously resolved. No skin thickening or axillary adenopathy. ULTRASOUND: Sonographic images of the right breast including the retroareolar region, all 4 quadrants and the axilla do not demonstrate any solid or cystic masses with the exception of an incidental 0.8 cm benign lipoma in the 9 o'clock axis 8 cm from the nipple. No architectural distortion or acoustical shadowing. No skin thickening or axillary adenopathy. IMPRESSION: No mammographic or sonographic evidence of malignancy. Annual bilateral mammographic screening is recommended unless otherwise clinically indicated. ASSESSMENT: BI-RADS Category 2: Benign
== END ==
PROVIDERS: PCP Internal Medicine Adolescent Medicine; Visit Provider Nurse Practitioner Family
DX: R92.8 Other abnormal and inconclusive findings on diagnostic imaging of breast (principal)
CPT/HCPCS: 76641; 77061; 77065; G0279

== ENCOUNTER → 2023-06-08 15:31 | Outpatient (CLI) | payer MEDICARE, SELFPAY ==
--- NOTE | 2023-06-08 15:48 | XR_ITS ---
FINAL REPORT CLINICAL HISTORY: dyspnea & dizziness x 2 weeks non smoker COMPARISON: 08/18/2021 FINDINGS: Two views of the chest were obtained. The heart size and pulmonary vascularity are within normal limits. The mediastinum is normal. No acute pulmonary abnormality is identified. There is no pneumothorax. The bony thorax is intact. IMPRESSION: No active cardiopulmonary disease. Reviewed, Interpreted and Dictated by Tarun Walters III, MD Transcribed by Magnolia Blum Authenticated and [facility]
[2023-06-08 16:03] LABS: Basophils # 0.1 K/mm3 (0-0.2); Basophils % 0.5 % (0.1-2.0); Eosinophils # 0.2 K/mm3 (0.0-0.4); Eosinophils % 1.9 % (0.1-12.0); Lymphocytes % 19.8 % (10-50); Mean Corpuscular HGB Conc 33.5 g/dL (31.8-35.4); Mean Corpuscular Hemoglobin 34.2 pg (27.0-31.2); Mean Corpuscular Volume 102.2 fl (81-99); Mean Platelet Volume 8.3 fl (7.4-10.4); Monocytes # 0.5 K/mm3 (0.1-1.0); Monocytes % 5.1 % (1.7-9.3); Neutrophils # 7.5 K/mm3 (1.8-7.8); Neutrophils % 72.7 % (37.0-80.0); Platelet Count 493 K/mm3 (142-424); Red Blood Count 2.64 M/mm3 (4.20-5.40); Red Cell Distribution Width 16.7 % (11.5-17.5); White Blood Count 10.3 K/mm3 (4.8-10.8)
[2023-06-08 16:23] LABS: D-Dimer 1.04 ug/mL (0.0-0.5)
[2023-06-08 16:29] LABS: Chloride 98 mmol/L (98-107)
[2023-06-08 16:30] LABS: Potassium 5.3 mmoL/L (3.5-5.1); Sodium 139 mmol/L (136-145)
[2023-06-08 19:27] LABS: Anion Gap 17.3 mEq/L (5-15); Blood Urea Nitrogen 49 mg/dl (7-17); Calcium 9.4 mg/dl (8.4-10.2); Carbon Dioxide 29 mmol/L (22.0-30.0); Estimated Glomerular Filt Rate 7 ml/min (>60); GFR (African American) 9 ML/MIN (>60); Glucose 122 mg/dl (74-100); Magnesium 1.6 mg/dl (1.6-2.3)
== END ==
PROVIDERS: PCP Internal Medicine Adolescent Medicine; Visit Provider Physician Assistant
DX: I12.9 Hypertensive chronic kidney disease with stage 1 through stage 4 chronic kidney disease, or unspecified chronic kidney disease (principal); I11.0 Hypertensive heart disease with heart failure; I27.20 Pulmonary hypertension, unspecified; R00.2 Palpitations; R06.02 Shortness of breath; N18.4 Chronic kidney disease, stage 4 (severe); D64.9 Anemia, unspecified; E11.9 Type 2 diabetes mellitus without complications; Z79.4 Long term (current) use of insulin
CPT/HCPCS: 36415; 71046; 80048; 83735; 85025; 85378

== ENCOUNTER → 2023-06-10 13:02 | Outpatient (CLI) | payer MEDICARE, SELFPAY | PROVIDERS: PCP Internal Medicine Adolescent Medicine; Visit Provider Physician Assistant | DX: R06.09 Other forms of dyspnea (principal) ==

== ENCOUNTER → 2023-06-11 07:21 | Outpatient (CLI) | payer MEDICARE, SELFPAY ==
--- NOTE | 2023-06-11 07:21 | CT_ITS ---
FINAL REPORT TECHNIQUE: Postcontrast axial images of the chest were performed in a CTA protocol. This study was performed with techniques to keep radiation doses as low as reasonably achievable, (ALARA). Individualized dose reduction technique using automated exposure control or adjustment of mA and/or kV according to the patient's size were employed. CLINICAL HISTORY: sob COMPARISON: 10/28/2020 FINDINGS: There are several thyroid nodules. The heart is normal in size. No adenopathy is identified. No pleural or pericardial effusion is identified. 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 Otherwise, there is no aneurysm or dissection. There is no filling defect to suggest pulmonary embolism. There is a stable, 6 mm right middle lobe nodule. Scarring is seen at the lung bases. No new lung infiltrate or mass is identified. The images of the upper abdomen demonstrate numerous hepatic cysts. IMPRESSION: No evidence for PE on this exam. Stable 6 mm right middle lobe nodule. 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 Reviewed, Interpreted and Dictated by Tarun Walters III, MD Transcribed by Maria Guadalupe Mdcaniels Authenticated and [facility]
== END ==
PROVIDERS: PCP Internal Medicine Adolescent Medicine; Visit Provider Physician Assistant
DX: R06.09 Other forms of dyspnea (principal)
CPT/HCPCS: 71275; Q9967

== ENCOUNTER → 2023-06-12 15:03 | Outpatient (CLI) | payer MEDICARE, SELFPAY ==
[2023-06-15 15:42] LABS: Occult Blood,Stool Negative (Negative)
== END ==
PROVIDERS: PCP Internal Medicine Adolescent Medicine; Visit Provider Physician Assistant Medical
DX: D64.9 Anemia, unspecified (principal); N18.6 End stage renal disease
CPT/HCPCS: 82272; G0328

== ENCOUNTER → 2023-06-15 14:59 | Outpatient (CLI) | payer MEDICARE, SELFPAY ==
[2023-06-15 15:43] LABS: Occult Blood,Stool Negative (Negative)
[2023-06-15 15:43] LABS: Occult Blood,Stool Negative (Negative)
== END ==
LOC: LAB 15:01
PROVIDERS: PCP Internal Medicine Adolescent Medicine; Visit Provider Physician Assistant Medical
DX: D64.9 Anemia, unspecified (principal); N18.6 End stage renal disease
CPT/HCPCS: 82272; G0328

== ENCOUNTER 2023-06-22 08:49 | Outpatient (CLI) | payer MEDICARE, SELFPAY ==
[2023-06-22] VITALS (10 sets, daily range): BP systolic 131–155; BP diastolic 52–80; PULSE 73–79; RESP 18–20; TEMP 36.3–36.6; O2SAT 100; BMI 41.3
--- NOTE | 2023-06-22 09:17 | PC.NURSE ---
Pt presents to clinic today with an MD order for one unit PRBC for Hgb of 7.5. Pt c/o of extreme fatigue, SOA, and pounding heart tones in her ear. Pt type and screened and will receive one unit PRBC today. Blood consent read through and signed and pt educated about risks of blood transfusion. Pt agreed and verbalized understanding.
[2023-06-22 11:53] LABS: Hematocrit 24.9 % (37.0-47.0); Hemoglobin 8.4 g/dL (12.2-16.2)
== END 2023-06-22 12:20 | disposition home or self-care (01) ==
LOC: INF 08:51
PROVIDERS: PCP Internal Medicine Adolescent Medicine; Visit Provider Internal Medicine
DX: D64.9 Anemia, unspecified (principal); N18.6 End stage renal disease
CPT/HCPCS: 36430; 85014; 85018; 86850; P9016

== ENCOUNTER → 2023-07-01 12:26 | Outpatient (CLI) | payer MEDICARE, SELFPAY ==
--- NOTE | 2023-07-01 12:43 | XR_ITS ---
FINAL REPORT CLINICAL HISTORY: LUMBAGO W/SCIATICA RT SIDE,PAIN FINDINGS: AP, lateral, and oblique views of the lumbar spine were obtained. There are postoperative changes from posterior fusion of L2-3 with spacers at L3-4 and L4-5. The hardware is intact. No acute fracture is identified. Disc bases are essentially fused at L2-3, L3-4, and L4-5. There is degenerative disease at L1-2 and L5-S1. No acute paraspinal abnormality is identified. IMPRESSION: Postoperative and degenerative changes as above. Reviewed, Interpreted and Dictated by Cordelia Martinez MD Transcribed by Chanel Hernandez Authenticated and [facility]
== END ==
PROVIDERS: PCP Internal Medicine Adolescent Medicine; Visit Provider Nurse Practitioner Family
DX: M54.41 Lumbago with sciatica, right side (principal); G89.29 Other chronic pain; R29.818 Other symptoms and signs involving the nervous system
CPT/HCPCS: 72110

== ENCOUNTER → 2023-08-05 13:32 | Outpatient (CLI) | payer MEDICARE, SELFPAY ==
--- NOTE | 2023-08-05 13:34 | MR_ITS ---
FINAL REPORT CLINICAL HISTORY: LUMBAR DEGENERATIVE DISEASE. HX OF SX ON LSPINE. COMPARISON: None FINDINGS: Multiplanar MR imaging of the lumbar spine was performed without contrast. Posterior fusion hardware is present at the L2-3 level. There has been interbody fusion performed at the L2-3, L3-4, and L4-5 levels. On the sagittal T2-weighted images, there is abnormal decreased signal throughout the lumbar discs. The vertebrae are of normal height. The vertebral alignment is normal. L1-2: Mild endplate hypertrophy is present as well as mild bilateral neural foraminal narrowing. L2-3: Interbody fusion graft is present, eccentric to the left, and mildly protuberance into the left lateral recess best seen on axial image #8 of series 8. L3-4: Interbody fusion graft is present. There is no significant canal stenosis or neural foraminal narrowing. L4-5: Interbody fusion graft is present. There is no significant canal stenosis or neural foraminal narrowing. L5-S1: A moderate disc bulge is present along with endplate hypertrophy. There is moderate to severe right and mild to moderate left neural foraminal narrowing. IMPRESSION: Prior posterior fusion at the L2-3 level, and anterior interbody fusion at the L2-3, L3-4, and L4-5 levels. At the L2-3 level the interbody fusion graft is eccentric to the left and mildly protrudes into the left lateral recess. The L5-S1 level reveals moderate to severe right neural foraminal narrowing, mild to moderate left neural foraminal narrowing. Reviewed, Interpreted and Dictated by Timmy Hurd MD Transcribed by Maricruz Rapp Authenticated and [facility]
== END ==
PROVIDERS: PCP Internal Medicine Adolescent Medicine; Visit Provider Nurse Practitioner Family
DX: M51.36 Other intervertebral disc degeneration, lumbar region (principal)
CPT/HCPCS: 72148; 76376

== ENCOUNTER 2023-11-24 13:38 | Outpatient (CLI) | payer MEDICARE, SELFPAY ==
[2023-11-24 14:47] LABS: Hemoglobin A1C 7.4 % (4.0-6.0)
== END 2023-11-24 23:59 ==
LOC: LAB 13:40
PROVIDERS: PCP Internal Medicine Adolescent Medicine; Visit Provider Anesthesiology
DX: Z79.899 Other long term (current) drug therapy (principal); M96.1 Postlaminectomy syndrome, not elsewhere classified
CPT/HCPCS: 36415; 83036

== ENCOUNTER 2023-12-09 18:10 | Outpatient (CLI) | payer MEDICARE, SELFPAY ==
--- NOTE | 2023-12-09 18:32 | MR_ITS ---
PROCEDURE INFORMATION: Exam: MR Thoracic Spine Without Contrast Exam date and time: 12/09/2023 6:22 PM Age: 73 years old Clinical indication: Pain in thoracic spine; Patient HX: Pain in upper back; Additional info: Post laminectomy syndrome TECHNIQUE: Imaging protocol: Magnetic resonance imaging of the thoracic spine without contrast. COMPARISON: MR LUMBAR SPINE WO CON 08/05/2023 1:38 PM FINDINGS: Bones/joints: Vertebral body height, alignment and overall marrow signal are within normal limits. Thoracic spondylosis is present in multiple upper and lower levels primarily due to facet arthropathy most notable T8-9, T9-10 and T10-11 causing [id number] canal narrowing but no impingement upon the thoracic cord. Spondylosis at the cervicothoracic junction is associated with a probably degenerative 3 mm anterior positioning of C7 relative to T1. Disc ridging at T1-2 causes mild canal narrowing but no impingement upon the thoracic cord. Neural foraminal narrowing is noted most severe at the T10-11 level. Spinal cord: See Bones/joints finding. T1-T2: See Bones/joints finding. T2-T3: No significant disc bulge or herniation. No severe spinal canal stenosis. No significant neural foraminal narrowing. T3-T4: No significant disc bulge or herniation. No severe spinal canal stenosis. No significant neural foraminal narrowing. T4-T5: No significant disc bulge or herniation. No severe spinal canal stenosis. No significant neural foraminal narrowing. T5-T6: No significant disc bulge or herniation. No severe spinal canal stenosis. No significant neural foraminal narrowing. T6-T7: No significant disc bulge or herniation. No severe spinal canal stenosis. No significant neural foraminal narrowing. T7-T8: No significant disc bulge or herniation. No severe spinal canal stenosis. No significant neural foraminal narrowing. T8-T9: There is facet arthropathy causing mild posterior canal narrowing and mild neural foraminal stenosis. T9-T10: There is notable facet arthropathy causing mild canal narrowing but no impingement upon the cord. There is no significant neural foraminal stenosis. T10-T11: There is prominent facet arthropathy and mild disc ridging noted causing fsaf-[id number] concentric canal narrowing around the cord. There is moderate to severe neural foraminal narrowing. T11-T12: No significant disc bulge or herniation. No severe spinal canal stenosis. No significant neural foraminal narrowing. T12-L1: No significant disc bulge or herniation. No severe spinal canal stenosis. No significant neural foraminal narrowing. Soft tissues: Unremarkable. IMPRESSION: Thoracic spondylosis as described.
== END 2023-12-09 23:59 | disposition home or self-care (01) ==
LOC: RAD 18:12
PROVIDERS: PCP Internal Medicine Adolescent Medicine; Visit Provider Anesthesiology
DX: M96.1 Postlaminectomy syndrome, not elsewhere classified (principal)
CPT/HCPCS: 72146

== ENCOUNTER 2024-01-18 08:57 | Emergency (ER) | payer MEDICARE, SELFPAY ==
--- NOTE | 2024-01-18 09:05 | XR_ITS ---
FINAL REPORT CLINICAL HISTORY: sob COMPARISON: 06/08/2023 FINDINGS: 2 views of the chest were obtained . The aorta is unfolded. The heart is normal in size. The mediastinum is within normal limits. There are mild patchy airspace opacities in the upper lobes and right lower lobe, new from prior exam which may represent multifocal pneumonia. There is no pneumothorax. Osseous structures are unremarkable. IMPRESSION: Patchy airspace opacities, new from the prior exam which may represent multifocal pneumonia. Reviewed, Interpreted and Dictated by Timmy Hurd MD Transcribed by Maria Guadalupe Mcdaniels Authenticated and [facility]
[2024-01-18 09:15] VITALS: BP 114/90; PULSE 87; RESP 18; TEMP 36.8; O2SAT 90; BMI 38.2
--- NOTE | 2024-01-18 09:52 | ED_ITS ---
Discharge Plan Disposition Patient Disposition: Home, Self-Care Condition: Good Prescriptions Prescriptions: New levofloxacin 250 mg tablet 250 mg PO Q48H Qty: 5 0RF Rx Instructions: take after dialysis prednisone 10 mg tablet 10 mg PO DIRECTED 9 Days Qty: 21 0RF Rx Instructions: Take 4 tablets daily for 3 days, then take 2 tablets daily for 3 days, then take 1 tablet daily for 3 days, then stop. No Action sevelamer carbonate 800 mg tablet 1,600 mg PO TID Ozempic 0.25 mg or 0.5 mg (2 mg/3 mL) pen injector 0.25 mg SQ WEEKLY aspirin [Adult Low Dose Aspirin] 81 mg tablet,delayed release (DR/EC) 81 mg PO QDAY gabapentin 300 mg capsule 300 mg PO BID Patient Comments: 1 am, 2 HS allopurinol 100 mg tablet 100 mg PO DAILY calcium acetate(phosphat bind) 667 mg capsule 1,334 mg PO TID insulin degludec [Tresiba FlexTouch U-100] 100 unit/mL (3 mL) insulin pen 36 unit SQ DAILY torsemide 100 mg tablet 200 mg PO DAILY atenolol 100 mg tablet 50 mg PO DAILY venlafaxine 37.5 MG capsule,extended release 24hr 37.5 mg PO DAILY metolazone 5 MG tablet 5 mg PO DAILY Dialyvite 800 0.8 mg tablet 1 tab PO DAILY rosuvastatin 5 mg tablet 5 mg PO DAILY Referrals Follow up/Referrals: Shine Bassett MD [Primary Care Provider] - See instructions Activity Restrictions/Add. Instructions Additional Instructions/Restrictions: Take tylenol for pain or fever. Take the medications as directed. Start the steroids (prednisone) today. Start the levaquin (antibiotic) tomorrow after dialysis. Take the levaquin every 48 hours after dialysis. Follow up with your regular doctor. Please call him today and get a follow up appointment with him within the next 24 to 48 hours. GO TO THE ER FOR ANY WORSENING SYMPTOMS Clinical Impressions Clinical Impression: Right middle lobe pneumonia Instructions Patient Instructions: Pneumonia-Adult, Levofloxacin Discharge ED Provider: Jose Ortiz [facility] [place] HPI General Stated complaint: SOA,congestion, tightness in chest Mode of Arrival: Ambulatory Source of Information: Patient Limitations: No Limitations Time Seen by Provider: 01/18/24 09:51 Description of Symptoms (Recalled from Triage Doc. by RN): Pt's symptoms are dry cough, and chest congestion. HEENT Symptoms (Recalled from RN notes): No Resp Symptoms (Recalled from RN notes): Yes Skin Symptoms (Recalled from RN notes): No MS Symptoms (Recalled from RN notes): No Functional Status (Recalled from RN notes): n/a Related Data Home Medications Medication Instructions Recorded Confirmed aspirin 81 mg tablet,delayed 81 mg PO QDAY Heart disease 08/25/17 01/18/24 release (Adult Low Dose Aspirin) allopurinol 100 mg tablet 100 mg PO DAILY GOUT 05/12/18 01/18/24 venlafaxine 37.5 mg 37.5 mg PO DAILY Depression 08/18/21 01/18/24 capsule,extended release 24 hr gabapentin 300 mg capsule 300 mg PO BID Pain 02/13/22 01/18/24 metolazone 5 mg tablet 5 mg PO DAILY Fluid 02/24/22 01/18/24 atenolol 100 mg tablet 50 mg PO DAILY High blood pressure 09/01/22 01/18/24 calcium acetate(phosphat bind) 667 1,334 mg PO TID 09/01/22 01/18/24 mg capsule insulin degludec 100 unit/mL (3 36 unit SQ DAILY 09/01/22 01/18/24 mL) subcutaneous pen (Tresiba FlexTouch U-100 insulin) torsemide 100 mg tablet 200 mg PO DAILY 12/08/22 01/18/24 semaglutide 0.25 mg or 0.5 mg (2 0.25 mg SQ WEEKLY 06/08/23 12/21/23 mg/3 mL) subcutaneous pen injector (Ozempic) sevelamer carbonate 800 mg tablet 1,600 mg PO TID 06/08/23 01/18/24 rosuvastatin 5 mg tablet 5 mg PO DAILY 01/18/24 01/18/24 vitamin B complex-vitamin C-folic 1 tab PO DAILY 01/18/24 01/18/24 acid 0.8 mg tablet (Dialyvite 800) Previous Rx's Medication Instructions Recorded levofloxacin 250 mg tablet 250 mg PO Q48H #5 tabs 01/18/24 prednisone 10 mg tablet 10 mg PO DIRECTED 9 days #21 01/18/24 tabs Allergies Allergy/AdvReac Type Severity Reaction Status Date / Time Penicillins Allergy Severe THROAT Verified 01/18/24 09:27 SWELLING Worker's Comp Is this a Worker's Comp case?: No [facility] Disclaimer: The information contained in this section may have been updated after the patient was seen, as this information can be updated by other users. Medical History Non-ischemic cardiomyopathy CKD (chronic kidney disease) stage 4, GFR 15-29 ml/min Dizziness Edema Dyspnea Hypertensive heart disease Diabetes mellitus WONG (obstructive sleep apnea) CKD (chronic kidney disease) stage 2, GFR 60-89 ml/min Pulmonary hypertension CHF (congestive heart failure) Social History Smoking Status: Never smoker alcohol intake: never substance use type: denies use current occupational status: retired Travel in the last 8 weeks: Inside the [place] household members: spouse housing: house current occupational exposures/hazards: No caffeine: Yes ROS Obtained: Yes All systems reviewed & no additional complaints except as documented Constitutional Constitutional: Reports chills and Reports fever(s) Eyes Eyes: Denies eye discharge ENT Ears, Nose, Mouth, and Throat: Reports as per HPI Cardiovascular Cardiovascular: Denies chest pain Respiratory Respiratory: Denies chest congestion and Reports cough Gastrointestinal Gastrointestingal: Reports nausea; Denies abdominal pain, constipation, crampi ng, diarrhea or vomiting Musculoskeletal Musculoskeletal: Denies arthralgias Integumentary/Breasts Skin/Breast: Denies rash Neurologic Neurologic: Denies paresthesias Physical Exam General General appearance: alert and in no apparent distress Eye Eye exam: Present normal appearance, PERRL and EOMI ENT ENT exam: Present mucous membranes moist and normal external ear exam Expanded ENT Exam External ear exam: Present normal external inspection TM/Canal exam: Bilateral TM: erythema and bulging Nose exam: Absent sinus tenderness Nasal speculum exam: Bilateral: normal Mouth exam: Present normal external inspection; Absent drooling Teeth exam: Present normal inspection Throat exam: Present tonsillar erythema and tonsillomegaly Neck Neck exam: Present normal inspection, full ROM and trachea midline; Absent tenderness, lymphadenopathy or thyromegaly Chest Chest inspection: Present normal inspection and symmetric chest wall rise; Absent tenderness or rash Respiratory Respiratory exam: Present normal lung sounds bilaterally; Absent respiratory distress, wheezes, stridor or accessory muscle use Cardiovascular Cardiovascular exam: Present regular rate, normal rhythm and normal heart sounds Abdominal Exam Abdominal exam: Present soft; Absent distention, tenderness, guarding, rebound or rigidity Extremities Exam Extremities exam: Present normal inspection, full ROM and normal capillary refill; Absent tenderness or calf tenderness Back Exam Back exam: Present normal inspection and full ROM; Absent tenderness Neurological Exam Neurological exam: Present alert and oriented X3 Psychiatric Psychiatric exam: Present normal affect and normal mood Skin Skin exam: Present warm, dry, intact and normal color Lymphatic Lymphatic Findings: no adenopathy Medical Decision Making Medical Records Medical records reviewed: No I reviewed the patient's medical records. Andrae Inquiry Pt receiving controlled substance: No Vital Signs: 01/18/24 09:15 Temperature 98.2 F Temperature Source Oral Pulse Rate [Right Radial] 87 Respiratory Rate 18 Blood Pressure [Right Arm] 114/90 Blood Pressure Mean [Right Arm] 98 Blood Pressure Source [Right Arm] Automatic Cuff Blood Pressure Position [Right Arm] Sitting 02 Sat by Pulse Oximetry 90 L Oxygen Delivery Method Room Air Orders (Tests/Meds): ORDERS Category Date Time Status Chest XR 2 view (NOT portable) [XR chest 2V] Stat Exams 01/18/24 09:05 Taken
[2024-01-18] MEDS: levoFLOXacin 500MG TAB 500 MG PO (10:07)
--- NOTE | 2024-01-18 10:36 | PC.NURSE ---
Pt refused to go to the ER. She stated that if she got worse she would go to the ER.
[2024-01-18 10:37] VITALS: BP 114/90; PULSE 87; RESP 22; TEMP 36.8; O2SAT 93
--- NOTE | 2024-01-18 10:38 | PC.NURSE ---
Pt has o2 at home that she doesn't normally use. She has been using it off an on the past few days at 2L. We offered to put her on 2L while she was her she didn't want to be placed on it. She would let us know if she needed it .
== END 2024-01-18 10:37 | disposition home or self-care (01) ==
PROVIDERS: Emergency Provider Nurse Practitioner Family; PCP Internal Medicine Adolescent Medicine
DX: J18.9 Pneumonia, unspecified organism (principal); R06.02 Shortness of breath; R07.9 Chest pain, unspecified; R05.9 Cough, unspecified
CPT/HCPCS: 71046; 99204; 99212; G0463

== ENCOUNTER 2024-04-03 15:51 | Outpatient (CLI) | payer MEDICARE, SELFPAY ==
--- NOTE | 2024-04-03 15:58 | XR_ITS ---
FINAL REPORT CLINICAL HISTORY: DYSPNEA ON EFFORT COMPARISON: 01/18/2024 FINDINGS: Two views of the chest were obtained. Cardiomegaly is once again noted. The mediastinum is normal. There is mild bronchial wall thickening present consistent with bronchitis. The overall lung daniels have an improved appearance since the prior exam of December. There is no pneumothorax. The bony thorax is intact. IMPRESSION: Mild bronchial wall thickening consistent with bronchitis, with improved appearance in aeration in the lung field since the prior exam. Reviewed, Interpreted and Dictated by Tarun Walters III, MD Transcribed by Maricruz Rapp Authenticated and [facility]
== END 2024-04-03 23:59 | disposition home or self-care (01) ==
LOC: RAD 15:53
PROVIDERS: PCP Internal Medicine Adolescent Medicine; Visit Provider Internal Medicine Adolescent Medicine
DX: R06.09 Other forms of dyspnea (principal)
CPT/HCPCS: 71046

== ENCOUNTER 2024-04-05 13:34 | Outpatient (CLI) | payer MEDICARE, SELFPAY ==
[2024-04-05 13:35] VITALS: BMI 38.2
[2024-04-05 14:01] LABS: Hematocrit 22.7 % (37.0-47.0); Hemoglobin 7.4 g/dL (12.2-16.2)
--- NOTE | 2024-04-05 15:18 | PC.NURSE ---
1350- pt type and screen drawn via butterfly needle in right ac, for 1 unit PRBC to be given tomorrow on 04/06/24.
== END 2024-04-05 14:00 | disposition home or self-care (01) ==
LOC: INF 13:35
PROVIDERS: PCP Internal Medicine Adolescent Medicine; Visit Provider Internal Medicine Adolescent Medicine
DX: D50.9 Iron deficiency anemia, unspecified (principal)
CPT/HCPCS: 36415; 85014; 85018; 86850

== ENCOUNTER 2024-04-06 08:26 | Outpatient (CLI) | payer MEDICARE, SELFPAY ==
[2024-04-06] VITALS (11 sets, daily range): BP systolic 127–159; BP diastolic 56–86; PULSE 65–74; RESP 16–18; TEMP 36.5–36.7; O2SAT 95–99; BMI 38.2
[2024-04-06] MEDS: SODIUM CHLORIDE 0.9% 10ML FLUSH SYRINGE 10 ML IV (09:29)
[2024-04-06] MEDS: 0.9 % SODIUM CHLORIDE 250 ML 25 ML IV (09:29)
[2024-04-06 13:03] LABS: Hematocrit 23.1 % (37.0-47.0); Hemoglobin 7.7 g/dL (12.2-16.2)
== END 2024-04-06 12:50 | disposition home or self-care (01) ==
LOC: INF 08:27
PROVIDERS: PCP Internal Medicine Adolescent Medicine; Visit Provider Internal Medicine Adolescent Medicine
DX: D64.9 Anemia, unspecified (principal)
CPT/HCPCS: 36430; 85014; 85018; P9016

== ENCOUNTER 2024-05-09 11:56 | Outpatient (CLI) | payer MEDICARE, SELFPAY ==
[2024-05-09 12:12] LABS: Basophils # 0.1 K/mm3 (0-0.2); Basophils % 0.8 % (0.1-2.0); Eosinophils # 0.3 K/mm3 (0.0-0.4); Eosinophils % 2.9 % (0.1-12.0); Hematocrit 34.5 % (37.0-47.0); Hemoglobin 10.5 g/dL (12.2-16.2); Lymphocytes # 1.4 K/mm3 (0.7-4.5); Lymphocytes % 15.3 % (10-50); Mean Corpuscular HGB Conc 30.6 g/dL (31.8-35.4); Mean Corpuscular Hemoglobin 32.4 pg (27.0-31.2); Mean Corpuscular Volume 105.8 fl (81-99); Mean Platelet Volume 7.3 fl (7.4-10.4); Monocytes # 0.4 K/mm3 (0.1-1.0); Monocytes % 4.6 % (1.7-9.3); Neutrophils # 6.9 K/mm3 (1.8-7.8); Neutrophils % 76.4 % (37.0-80.0); Platelet Count 379 K/mm3 (142-424); Red Blood Count 3.26 M/mm3 (4.20-5.40); Red Cell Distribution Width 17.2 % (11.5-17.5)
[2024-05-09 12:40] LABS: Chloride 102 mmol/L (98-107)
[2024-05-09 12:41] LABS: Albumin Level 3.9 g/dl (3.5-5.0); Potassium 4.1 mmoL/L (3.5-5.1); Sodium 142 mmol/L (136-145)
[2024-05-09 12:43] LABS: Anion Gap 8.1 mEq/L (5-15); Blood Urea Nitrogen 26 mg/dl (7-17); Carbon Dioxide 36 mmol/L (22.0-30.0); Estimated Glomerular Filt Rate 9 ml/min (>60); GFR (African American) 11 ML/MIN (>60)
[2024-05-09 12:44] LABS: Alanine Aminotransferase 15 U/L (12-78); Albumin/Globulin Ratio 1.6 (1.1-1.8); Alkaline Phosphatase 90 U/L (38-126); Aspartate Amino Transferase 19 U/L (14-36); Bilirubin,Total 0.8 mg/dl (0.2-1.3); Globulin 2.4 g/dL (1.3-3.2); Glucose 120 mg/dl (74-100); Iron 51 ug/dL (37-170); Total Protein,Serum 6.3 g/dl (6.3-8.2)
[2024-05-09 12:53] LABS: Total Iron Binding Capacity 227 ug/dL (265-497)
== END 2024-05-09 23:59 | disposition home or self-care (01) ==
LOC: LAB 11:57
PROVIDERS: PCP Internal Medicine Adolescent Medicine; Visit Provider Internal Medicine Gastroenterology
DX: N18.4 Chronic kidney disease, stage 4 (severe) (principal); D63.1 Anemia in chronic kidney disease
CPT/HCPCS: 36415; 80053; 83540; 83550; 85025

== ENCOUNTER 2024-05-16 12:45 | Outpatient (CLI) | payer MEDICARE, SELFPAY ==
--- NOTE | 2024-05-16 12:50 | MM_ITS ---
PROCEDURE INFORMATION: Exam: MG Bilateral Screening 3D Mammography Exam date and time: 05/16/2024 12:51 PM Age: 73 years old Clinical indication: Screening mammogram TECHNIQUE: Imaging protocol: Bilateral Screening tomosynthesis and 2D mammography including computer-aided detection (CAD) when performed. COMPARISON: 1. MG MM DIG MAMM DX UNILAT RT CAD 05/11/2023 1:36 PM 2. MG MM DIG MAMM DX UNILAT RT CAD 10/01/2022 12:57 PM 3. MG MM DIG SCREENING MAMM BI W/CAD 09/01/2022 12:54 PM 4. MG MM DIG SCREENING MAMM BI W/CAD 06/09/2019 11:18 AM FINDINGS: MAMMOGRAPHY: Breast composition: There are scattered areas of fibroglandular density. Mass: None. Architectural distortion: No new or suspicious architectural distortion. Calcifications: No new or suspicious calcifications are present Asymmetric density: No new or suspicious asymmetric density is present Skin thickening: None. Axillary adenopathy: None. IMPRESSION: No mammographic evidence of malignancy. Recommend annual screening mammography unless otherwise clinically indicated. ASSESSMENT: BI-RADS category 1: Negative.
== END 2024-05-16 23:59 | disposition home or self-care (01) ==
LOC: RAD 12:46
PROVIDERS: PCP Internal Medicine Adolescent Medicine; Visit Provider Internal Medicine Adolescent Medicine
DX: Z12.31 Encounter for screening mammogram for malignant neoplasm of breast (principal)
CPT/HCPCS: 77063; 77067

== ENCOUNTER 2024-05-18 11:00 | Outpatient (CLI) | payer MEDICARE, SELFPAY ==
--- NOTE | 2024-05-18 11:03 | CA_ITS ---
APPROVED REPORT EXAM: Comprehensive 2D, Doppler, and color-flow Echocardiogram Business Team Leader: Michelle Fischer, RCS, RVS Ht: 5 ft 6 in Wt: 251lbs BSA: 2.20 BP: 137/68 mmHg Indications: Dyspnea, Renal failure-dialysis, CM, WONG, PHTN, DM, Palpitations, SOB, Pre-op 2D Dimensions Aortic Root 3.33 cm F: 2.7 - 3.3 EF AP4 44.00 % Left Atrium 4.13 cm F: 2.7 - 3.8 GL Strain -19.0 % RVID Base (AP4) 3.12 cm (M/F) 2.5-4.1 LVOT 2.00 cm (M/F) 1.5-2.5 M-Mode Dimensions RVDd 2.40 cm (0.9-2.6) LVDd 5.59 cm (3.5-5.7) Ao Diam 3.58 cm (2.0-3.7) LVDs 3.53 cm (3.5-5.7) IVSd 0.98 cm (0.6-1.1) PWd 1.05 cm (0.6-1.1) EF (Teich) 66.10% EPSs 0.42 cm FS 36.90% EDV (Teich) 153.00 mL ESV (Teich) 51.90 mL LV Diastology E Decel Time 206 (160-240 msec) E/A Ratio 1.9 MED E' 6.8 (>= 7 cm/sec) MED A' 6.20 cm/s E'/MED E' Ratio 16.37 (<= 14) LAT E' 7.6 (>= 10 cm/sec) LAT A' 5.00 cm/s E/LAT E' Ratio 14.64 (<= 14) Aortic Valve LVOT Max 107.0 (70-110 cm/s) MONIKA Index 1.05 cm2/m2 LVOT VTI 24.77 cm AoV Peak Cl. 146.0 (50-130 cm/s) AO Mean GR. 4.20 (<5 mmHg) AO VTI 33.7 (18-25 cm) MONIKA (VTI) 2.31 (2.5-4.5 cm2) Mitral Valve MV E Max Cl. 111.0 (40-130 cm/s) MV A Velocity 59.0 (40-130 cm/s) E/A Ratio 1.90 MV Decel. Time 206 (160-240 ms) Pulmonary Valve SC End VMAX 224.0 cm/s Tricuspid Valve TR P. Velocity 151.00 cm/s Left Ventricle The left ventricle is normal size. The left ventricular systolic function is normal. The left ventricular ejection fraction is within the normal range. There is increased LV wall thickness. There is normal LV segmental wall motion. The left ventricular diastolic function is normal. LVEF is 55%. Right Ventricle The right ventricle is normal size. The right ventricular systolic function is normal. Atria The left atrium is mildly dilated. The right atrium size is normal. There is no Doppler evidence of interatrial shunt. Aortic Valve The aortic valve is mildly thickened. There is no aortic valvular stenosis. Trace aortic regurgitation is present. Mitral Valve Moderate annular calcification. The mitral valve leaflets are mildly thickened. No evidence of mitral valve stenosis. Mean MV gradient 4 mmHg (HR 66 bpm). Mild mitral regurgitation. Tricuspid Valve The tricuspid valve leaflets are thin and pliable. Trace tricuspid regurgitation. There is insufficient TR jet to estimate RVSP. Pulmonic Valve The pulmonary valve is normal in structure. Trace pulmonic regurgitation. Great Vessels The aortic root is normal in size. The ascending aorta is normal in size. IVC is normal in size and collapses >50% with inspiration. Pericardium There is no pericardial effusion. Other Information Study Quality: Fair Conclusion Normal biventricular systolic function. Mild LA dilation. Mild MR. Electronically signed by : Itzel Graf MD 05/21/2024 20:40:47
== END 2024-05-18 23:59 | disposition home or self-care (01) ==
LOC: RT 11:00
PROVIDERS: PCP Internal Medicine Adolescent Medicine; Visit Provider Physician Assistant
DX: I42.8 Other cardiomyopathies
CPT/HCPCS: 93306

== ENCOUNTER 2024-06-11 09:15 | Emergency (ER) | payer MEDICARE, SELFPAY ==
--- NOTE | 2024-06-11 09:12 | ECG_ITS ---
APPROVED REPORT Exam: Resting ECG HR:66 bpm ECG Measurements Heart Rate 66 AXES MI 173 P 75 QRSd 97 QRS -9 QT 419 T 11 QTc 432 Conclusion SINUS RHYTHM POSSIBLE RIGHT VENTRICULAR CONDUCTION DELAY [RSR (QR) IN V1/V2] VOLTAGE CRITERIA FOR LVH [MEETS CRITERIA IN ONE OF: R(aVL), S(V1), R(V5), R(V5/V6)+S(V1)] POSSIBLE SEPTAL MYOCARDIAL INFARCTION , PROBABLY OLD [30 ms Q WAVE IN V1/V2] ABNORMAL ECG UNCONFIRMED REPORT Electronically signed by : Jose Eli, 06/11/2024 15:21:23
[2024-06-11 09:17] VITALS: BP 100/36; PULSE 65; RESP 18; TEMP 36.8; O2SAT 96; BMI 39.9
--- NOTE | 2024-06-11 09:22 | PC.NURSE ---
labs collected and sent to lab
[2024-06-11 09:23] VITALS: BP 145/46; PULSE 63; RESP 22; O2SAT 92
--- NOTE | 2024-06-11 09:30 | XR_ITS ---
PROCEDURE INFORMATION: Exam: XR Chest Exam date and time: 06/11/2024 9:41 AM Age: 74 years old Clinical indication: Chest wall pain TECHNIQUE: Imaging protocol: Radiologic exam of the chest. Views: 1 view. COMPARISON: CR XR CHEST 2V 04/03/2024 4:00 PM FINDINGS: Lungs: Unremarkable. No consolidation. Pleural spaces: Unremarkable. No pleural effusion. No pneumothorax. Heart/Mediastinum: Unremarkable. No cardiomegaly. Bones/joints: Unremarkable. IMPRESSION: No acute findings.
[2024-06-11 09:31] VITALS: BP 134/47; PULSE 66; RESP 17; O2SAT 95
[2024-06-11 09:34] LABS: MANUAL DIFFERENTIAL MANUAL DIFFERENTIAL (MANUAL DIFF)
[2024-06-11 09:38] LABS: Basophils # 0.1 K/mm3 (0-0.2); Basophils % 0.6 % (0.1-2.0); Eosinophils # 0.2 K/mm3 (0.0-0.4); Eosinophils % 1.3 % (0.1-12.0); Hematocrit 38.6 % (37.0-47.0); Hemoglobin 12.7 g/dL (12.2-16.2); Lymphocytes # 2.4 K/mm3 (0.7-4.5); Lymphocytes % 15.3 % (10-50); Mean Corpuscular HGB Conc 32.9 g/dL (31.8-35.4); Mean Corpuscular Volume 97.3 fl (81-99); Mean Platelet Volume 7.7 fl (7.4-10.4); Monocytes # 0.6 K/mm3 (0.1-1.0); Neutrophils # 12.5 K/mm3 (1.8-7.8); Neutrophils % 78.8 % (37.0-80.0); Platelet Count 323 K/mm3 (142-424); Red Blood Count 3.97 M/mm3 (4.20-5.40); White Blood Count 15.8 K/mm3 (4.8-10.8)
--- NOTE | 2024-06-11 09:40 | PC.NURSE ---
dr huff at bedside
[2024-06-11 09:44] LABS: Alanine Aminotransferase 20 U/L (12-78); Albumin Level 4.1 g/dl (3.5-5.0); Albumin/Globulin Ratio 1.4 (1.1-1.8); Alkaline Phosphatase 94 U/L (38-126); Anion Gap 11.3 mEq/L (5-15); Aspartate Amino Transferase 23 U/L (14-36); Bilirubin,Total 0.7 mg/dl (0.2-1.3); Blood Urea Nitrogen 58 mg/dl (7-17); Calcium 10.2 mg/dl (8.4-10.2); Carbon Dioxide 33 mmol/L (22.0-30.0); Chloride 97 mmol/L (98-107); Creatinine Clearance Estimated 14 mL/min (50-200); Estimated Glomerular Filt Rate 7 ml/min (>60); GFR (African American) 9 ML/MIN (>60); Glucose 151 mg/dl (74-100); Potassium 4.3 mmoL/L (3.5-5.1); Sodium 137 mmol/L (136-145); Total Protein,Serum 7.1 g/dl (6.3-8.2)
--- NOTE | 2024-06-11 09:46 | CT_ITS ---
PROCEDURE INFORMATION: Exam: CT Abdomen And Pelvis Without Contrast Exam date and time: 06/11/2024 10:05 AM Age: 74 years old Clinical indication: Abdominal pain; Generalized; Additional info: Esrd on dialysis, ruq rlq pain TECHNIQUE: Imaging protocol: Computed tomography of the abdomen and pelvis without contrast. Radiation optimization: All CT scans at this facility use at least one of these dose optimization techniques: automated exposure control; mA and/or kV adjustment per patient size (includes targeted exams where dose is matched to clinical indication); or iterative reconstruction. COMPARISON: MR THORACIC SPINE WO CON 12/09/2023 6:22 PM FINDINGS: Liver: Multiple low-density lesions throughout the liver. Gallbladder and biliary ducts: Normal. No calcified stones. No ductal dilation. Pancreas: Normal. No ductal dilation. Spleen: Normal. No splenomegaly. Adrenal glands: Normal. No mass. Kidneys and ureters: Cystic lesions in both kidneys. Small nonobstructing calculi. No hydronephrosis. Stomach and bowel: Unremarkable. No obstruction. No mucosal thickening. Appendix: No evidence of appendicitis. Intraperitoneal space: Unremarkable. No free air. No significant fluid collection. Vasculature: Atherosclerotic change of the abdominal vasculature Lymph nodes: Unremarkable. No enlarged lymph nodes. Urinary bladder: Unremarkable as visualized. Reproductive: Calcified fibroids within the uterus. Bones/joints: Postop surgical changes of the lumbar spine. Soft tissues: Unremarkable. IMPRESSION: 1. Numerous cystic lesions within the liver. No gallstones or ductal dilatation. 2. Numerous cystic lesions in the kidneys. No hydronephrosis 3. Atherosclerotic change of the abdominal vasculature 4. Fibroid changes of the uterus 5. Postop surgical change of the lumbar spine COMMENTS: Consistent with the [employer]'s Incidental Findings Committee white paper (J Am Ilsa Radiol 2018): Any incidental renal lesion less than 1 cm or classified as too small to characterize, or any incidental cystic renal lesion characterized as simple-appearing, is likely benign. No follow-up imaging is recommended for these lesions per consensus recommendations based on imaging criteria.
--- NOTE | 2024-06-11 09:47 | ED_ITS ---
Discharge Plan Disposition Patient Disposition: Xfer Other Chief Complaint: PAIN Prescriptions Prescriptions: No Action sevelamer carbonate 800 mg tablet 1,600 mg PO TID (DME) pen needle, diabetic [Droplet Pen Needle] 32 gauge x 5/32 needle See Rx Instructions .ROUTE .MEDSUPPLY Qty: 1200 Rx Instructions: As directed aspirin [Adult Low Dose Aspirin] 81 mg tablet,delayed release (DR/EC) 81 mg PO QDAY allopurinol 100 mg tablet 100 mg PO DAILY calcium acetate(phosphat bind) 667 mg capsule 1,334 mg PO TID torsemide 100 mg tablet 200 mg PO DAILY insulin degludec [Tresiba FlexTouch U-100] 100 unit/mL (3 mL) insulin pen 30 unit SQ DAILY pregabalin 50 mg capsule PO DAILY sucralfate 1 gram tablet 1 g PO QAC MDD 1 p.o. AC twice daily Qty: 300 3RF atenolol 100 mg tablet 50 mg PO DAILY venlafaxine 37.5 MG capsule,extended release 24hr 37.5 mg PO DAILY metolazone 5 MG tablet 5 mg PO DAILY Dialyvite 800 0.8 mg tablet 1 tab PO DAILY rosuvastatin 5 mg tablet 5 mg PO DAILY Referrals Follow up/Referrals: Shine Bassett MD [Primary Care Provider] - See instructions Clinical Impressions Clinical Impression: Perforated abdominal viscus Stand Alone Forms Stand Alone Forms: Transfer Record - ED Print Language Print Language: Setswana Discharge ED Provider: Enrico Eli General Adult HPI General Chief complaint: PAIN Stated complaint: Chest Pain Time Seen by Provider: 06/11/24 09:39 Mode of Arrival: Wheelchair Source of Information: Patient Limitations: No Limitations Description of Symptoms (Recalled from ER Triage Doc. by RN): Patient reports epigastric pain that woke her up approx 6am. States it radiates to her back and groin area. Denies N/V/D. Patient is a dialysis patient. History of Present Illness HPI narrative: Patient is a 74-year-old with numerous comorbidities including end-stage renal disease on dialysis Wednesday presenting today with primarily abdominal pain. She states that she woke up this morning has some epigastric discomfort this then migrated into her right lower quadrant and is now located the right lower quadrant and the right upper quadrant of her abdomen. She denies any chest pain but she does states she is having difficulty breathing because she states the abdomen hurts so much. No fevers or chills no urinary symptoms she does still make some urine denies any dysuria frequency urgency or hematuria. No bowel or bladder abnormalities. Related Data Home Medications ?Medication ?Instructions ?Recorded ?Confirmed aspirin 81 mg tablet,delayed 81 mg PO QDAY Heart disease 08/25/17 05/25/24 release (Adult Low Dose Aspirin) allopurinol 100 mg tablet 100 mg PO DAILY GOUT 05/12/18 05/25/24 venlafaxine 37.5 mg 37.5 mg PO DAILY Depression 08/18/21 05/25/24 capsule,extended release 24 hr metolazone 5 mg tablet 5 mg PO DAILY Fluid 02/24/22 05/25/24 atenolol 100 mg tablet 50 mg PO DAILY High blood pressure 09/01/22 05/25/24 calcium acetate(phosphat bind) 667 1,334 mg PO TID 09/01/22 05/25/24 mg capsule torsemide 100 mg tablet 200 mg PO DAILY 12/08/22 05/25/24 sevelamer carbonate 800 mg tablet 1,600 mg PO TID 06/08/23 05/25/24 rosuvastatin 5 mg tablet 5 mg PO DAILY 01/18/24 05/25/24 vitamin B complex-vitamin C-folic 1 tab PO DAILY 01/18/24 05/25/24 acid 0.8 mg tablet (Dialyvite 800) insulin degludec 100 unit/mL (3 30 unit SQ DAILY 04/11/24 05/25/24 mL) subcutaneous pen (Tresiba FlexTouch U-100 insulin) pen needle, diabetic 32 gauge x #1,200 ea 04/11/24 05/25/24 5/32 (Droplet Pen Needle) pregabalin 50 mg capsule mg PO DAILY 05/09/24 05/25/24 Previous Rx's ?Medication ?Instructions ?Recorded sucralfate 1 gram tablet 1 g PO QAC #300 tabs 05/09/24 Allergies Allergy/AdvReac Type Severity Reaction Status Date / Time Penicillins Allergy Severe THROAT Verified 05/25/24 11:24 SWELLING PFSH [facility] Disclaimer: The information contained in this section may have been updated after the patient was seen, as this information can be updated by other users. Medical History Non-ischemic cardiomyopathy CKD (chronic kidney disease) stage 4, GFR 15-29 ml/min Dizziness Edema Dyspnea Hypertensive heart disease Diabetes mellitus WONG (obstructive sleep apnea) CKD (chronic kidney disease) stage 2, GFR 60-89 ml/min Pulmonary hypertension CHF (congestive heart failure) Social History Smoking Status: Never smoker alcohol intake: never substance use type: denies use current occupational status: retired Travel in the last 8 weeks: Inside the [place] household members: spouse housing: house current occupational exposures/hazards: No caffeine: Yes Other Medical History Have you received the Flu Vaccine for this season: No Have you received the Pneumonia Vaccine: No ROS Obtained: Yes All systems reviewed & no additional complaints except as documented Physical Exam General General appearance: alert Respiratory Respiratory exam: Present normal lung sounds bilaterally Cardiovascular Cardiovascular exam: Present regular rate Abdominal Exam Abdominal exam: Present tenderness (Right upper quadrant right lower quadrant tenderness palpation without any rebound or guarding) Neurological Exam Neurological exam: Present alert and oriented X3 Medical Decision Making Medical Records Screening: Per USPSTF and CDC recommendations, given the prevalence of disease in our region, it is our hospital?s policy to screen for HIV and viral Hepatitis for all patients aged 18 and over and those with ongoing risk factors. Andrae Inquiry Pt receiving controlled substance: No Vital Signs: 06/11/24 09:17 06/11/24 09:23 06/11/24 09:31 Temperature 98.2 F Temperature Source Oral Pulse Rate 63 66 Pulse Rate [Radial] 65 Respiratory Rate 18 22 17 Blood Pressure 145/46 H 134/47 L Blood Pressure [Right Arm] 100/36 L Blood Pressure Mean 76 76 Blood Pressure Mean [Right Arm] 57 Blood Pressure Source [Right Arm] Automatic Cuff Blood Pressure Position [Right Arm] Sitting 02 Sat by Pulse Oximetry 96 92 L 95 Oxygen Delivery Method Room Air Room Air Room Air Lab Data Lab results reviewed: Yes I reviewed the patient's lab results. Lab Results 06/11/24 09:19: WBC 15.8 H, RBC 3.97 L, Hgb 12.7, Hct 38.6, MCV 97.3, MCH 32.0 H , MCHC 32.9, RDW 17.0, Plt Count 323, MPV 7.7, Neut % (Auto) 78.8, Lymph % (Auto) 15.3, [place] % (Auto) 4.0, Eos % (Auto) 1.3, Baso % (Auto) 0.6, Neut # (Auto) 12.5 H, Lymph # (Auto) 2.4, [place] # (Auto) 0.6, Eos # (Auto) 0.2, Baso # (Auto) 0.1, Total Counted 100, Neutrophils % (Manual) 80 H, Lymphocytes % (Manual) 17, Monocytes % (Manual) 2, Eosinophils % (Manual) 1, Platelet Estimate Normal, Macrocytosis 1+, Sodium 137, Potassium 4.3, Chloride 97 L, Carbon Dioxide 33 H, Anion Gap 11.3, BUN 58 H, Creatinine 5.80 H, Estimated Creat Clear 14, Estimated GFR 7 L*, Est GFR ( Amer) 9 L*, Glucose 151 H, Calcium 10.2, Total Bilirubin 0.7, AST 23, ALT 20, Alkaline Phosphatase 94, Troponin I 0.02, Total Protein 7.1, Albumin 4.1, Globulin 3.0, Albumin/Globulin Ratio 1.4, Lipase 124, HIV 1&2 Antibody Rapid Nonreactive 06/11/24 09:55: Lactate 1.4 06/11/24 09:19 06/11/24 09:19 Orders (Tests/Meds): ED MEDICATIONS Generic Name Dose Route Start Last Admin Trade Name Freq PRN Reason Stop Dose Admin Cefepime HCl 2 gm/ Sodium 100 mls @ 200 mls/hr 06/11/24 11:46 06/11/24 11:54 Chloride IV 06/11/24 12:15 200 mls/hr ONCE ONE Administration Metronidazole 500 mg in 100 mls @ 100 mls/hr 06/11/24 11:46 06/11/24 12:01 Flagyl 500mg/100ml Ivpb IV 06/11/24 12:45 100 mls/hr ONCE ONE Administration Ondansetron HCl 4 mg 06/11/24 11:54 06/11/24 12:08 Ondansetron 4mg/2ml Vial IV 06/11/24 11:55 4 mg ONCE ONE Administration Discontinued Medications Generic Name Dose Route Start Last Admin Trade Name Freq PRN Reason Stop Dose Admin Belladonna Alkaloids 60 ml 06/11/24 10:47 06/11/24 10:50 Belladonna Alkaloids 60 Ml Ml PO 06/11/24 10:48 60 ml ONCE ONE Administration Fentanyl Citrate 50 mcg 06/11/24 11:53 06/11/24 12:06 Fentanyl 100mcg/2ml Vial IV 06/11/24 11:54 50 mcg ONCE ONE Administration Hydromorphone HCl 0.5 mg 06/11/24 10:19 06/11/24 10:19 Hydromorphone 2mg/Ml Syringe IV 06/11/24 10:20 0.5 mg ONCE ONE Administration Iopamidol 80 ml 06/11/24 11:24 06/11/24 11:25 Iopamidol-370 (76%);100ml Bottle IV 06/11/24 11:25 80 ml ONCE ONE Administration Morphine Sulfate 4 mg 06/11/24 09:46 06/11/24 09:52 Morphine 4mg/Ml Syringe IV 06/11/24 09:47 4 mg ONCE ONE Administration Ondansetron HCl 4 mg 06/11/24 09:46 06/11/24 09:52 Ondansetron 4mg/2ml Vial IV 06/11/24 09:47 4 mg ONCE ONE Administration Sodium Chloride 10 ml 06/11/24 11:24 06/11/24 11:25 Sodium Chloride 0.9% 10ml Syr (Rad Only) IV 06/11/24 11:25 10 ml ONCE ONE Administration Sodium Chloride 50 ml 06/11/24 11:24 06/11/24 11:25 0.9 % Sodium Chloride 50 Ml Vial IV 06/11/24 11:25 50 ml ONCE ONE Administration ORDERS Category Date Time Status CT abdomen pelvis wo con Stat Cat Scan 06/11/24 09:[address] angio abdomen pelvis Stat Cat Scan 06/11/24 10:47 Completed CTA Chest [CT angio chest - dissection] Stat Cat Scan 06/11/24 10:47 Completed Chest XR -- portable [XR chest portable] Stat Exams 06/11/24 09:30 Completed Complete Blood Count Man Dif Stat Lab 06/11/24 09:19 Completed Comprehensive Metabolic Panel Stat Lab 06/11/24 09:19 Completed HIV (1&2) Antibody Rapid Stat Lab 06/11/24 09:19 Completed Hep C Ab with Reflex to RNA Stat Lab 06/11/24 09:19 Received Lactic Acid Stat Lab 06/11/24 09:55 Completed Lipase Stat Lab 06/11/24 09:19 Completed Troponin I Q3H Lab 06/11/24 12:45 Ordered Troponin I Q3H Lab 06/11/24 15:45 Ordered Troponin I Stat Lab 06/11/24 09:19 Completed ECG Data Tracing #1: I reviewed this ECG and interpreted as documented below: Ventricular rate of 66 sinus rhythm no acute ischemic changes noted there is left axis deviation no significant conduction abnormalities Medical Decision Narrative: 74-year-old with above history and physical differential is broad which includes cardiopulmonary and abdominal pelvic pathology. She has tenderness in the right upper right lower quadrant. Differential would include colitis, bowel obstruction, cholecystitis or hepatobiliary dysfunction, pancreatitis, appendicitis etc. Is also possible that she has a pulmonary embolism or some peripheral lung pathology. EKG was unremarkable I doubt that acute coronary syndrome is involved with this presentation. Will initially get a noncontrasted CT scan as she still makes some urine and she would be dependent on getting dialysis within the next 24 hours if I were to do a contrasted CT scan. Pain medicine and nausea medicine have been administered will reassess. Reassessment 1209 patient continued to have severe pain noncontrasted CT scan was unremarkable both on my personal interpretation and radiology interpretation. For this reason I was concerned about other pathology that could be found on contrasted study such as vascular pathology as she was writhing in pain she was given additional doses of Dilaudid as well as fentanyl and a GI cocktail which noted which made her feel better. She had migratory pain and again at this point complaining of pain throughout her abdomen as well as her left shoulder. CT angios of the chest abdomen pelvis were ordered and they demonstrated a large amount of pneumoperitoneum both on my personal interpretation and radiology interpretation as well. This was interval and its development and was not present on the first CT scan. Given the fact that she has had recent significant stomach pain and epigastric abdominal discomfort leading up to this and has outpatient follow-up to get an endoscopy this is almost certainly a perforated ulcer. She has a penicillin allergy cefepime and Flagyl have been ordered. I spoke with Dr. Shaffer our general surgeon and given the fact that she is on dialysis he felt she needed to be at a higher level of care where she could have dialysis after her surgery. I subsequently spoke with Dr. Arana who also had the [facility] surgery resident on the call and they agreed this patient should be transferred. We are trying to get a helicopter to get the patient transferred she remains in critical but stable condition. Her at the bedside was aware of this plan as well as the patient and she was transferred to [place] emergency department for further treatment. Critical Care Critical Care Time Critical Care Time: Yes Attestation: On 06/11/24, the high probability of a clinically significant, sudden or life threatening deterioration of the following system(s) required my full and direct attention, intervention and personal management. The time I documented below is in addition to time spent performing reported procedures but includes the following listed in this critical care notation. Total Time Total Critical Care Time: 65
--- NOTE | 2024-06-11 09:47 | PC.NURSE ---
Dr. Eli notified of Cr. 5.80.
[2024-06-11] MEDS: MORPHINE 4MG/ML SYRINGE 4 MG IV (09:52)
[2024-06-11] MEDS: ONDANSETRON 4MG/2ML VIAL 4 MG IV ×2 (09:52→12:08)
[2024-06-11 09:55] LABS: Troponin I 0.02 ng/ml (0.00-0.034)
[2024-06-11 09:56] LABS: Lipase 124 U/L (23-300)
[2024-06-11 09:59] LABS: Eosinophils % 1 % (0-3); Lymphocytes % 17 % (10-50); Macrocytosis 1+; Monocytes % 2 % (2-9); Neutrophils % 80 % (42-76); Platelet Estimate Normal; Total Cells Counted 100
[2024-06-11 10:15] LABS: Lactic Acid 1.4 mmol/L (0.7-2.1)
[2024-06-11] MEDS: HYDROMORPHONE 2MG/ML SYRINGE 0.5 MG IV (10:19)
--- NOTE | 2024-06-11 10:20 | ECG_ITS ---
APPROVED REPORT Exam: Resting ECG HR:70 bpm ECG Measurements Heart Rate 70 AXES DE 164 P 57 QRSd 98 QRS -12 QT 394 T 19 QTc 415 Conclusion SINUS RHYTHM POSSIBLE RIGHT VENTRICULAR CONDUCTION DELAY [RSR (QR) IN V1/V2] VOLTAGE CRITERIA FOR LVH [MEETS CRITERIA IN ONE OF: R(aVL), S(V1), R(V5), R(V5/V6)+S(V1)] POSSIBLE SEPTAL MYOCARDIAL INFARCTION , OF INDETERMINATE AGE [30 ms Q WAVE IN V1/V2] ABNORMAL ECG UNCONFIRMED REPORT Electronically signed by : Jose Eli, 06/11/2024 15:21:16
--- NOTE | 2024-06-11 10:47 | CT_ITS ---
PROCEDURE INFORMATION: Exam: CTA Chest With Contrast Exam date and time: 06/11/2024 11:17 AM Age: 74 years old Clinical indication: Pain; Other: Cp; Additional info: Refractory cp and abd pain TECHNIQUE: Imaging protocol: Computed tomographic angiography of the chest with contrast. Exam focused on the arteries. 3D rendering (Not supervised by radiologist): MIP and/or 3D reconstructed images were created by the technologist. Radiation optimization: All CT scans at this facility use at least one of these dose optimization techniques: automated exposure control; mA and/or kV adjustment per patient size (includes targeted exams where dose is matched to clinical indication); or iterative reconstruction. Contrast material: ISOVUE 370; Contrast volume: 80 ml; Contrast route: INTRAVENOUS (IV); COMPARISON: CT ANGIO CHEST PE PROTOCOL 06/11/2023 7:32 AM FINDINGS: Pulmonary arteries: Normal. No pulmonary emboli. Aorta: Unremarkable. No aortic aneurysm. No aortic dissection. Thyroid: Nodular density in the left lobe of the thyroid gland. Lungs: Unremarkable. No consolidation. No masses. Pleural spaces: Unremarkable. No pneumothorax. No pleural effusion. Heart: Unremarkable. No cardiomegaly. No pericardial effusion. Lymph nodes: Unremarkable. No enlarged lymph nodes. Intraperitoneal space: There is interval development of free air in the anterior upper abdomen. Findings are suspicious for perforated viscus. Bones/joints: Unremarkable. No acute fracture. Soft tissues: Unremarkable. IMPRESSION: 1. No pulmonary embolism. No evidence of aortic aneurysm or dissection. 2. Interval development of free air in the anterior upper abdomen when compared to the prior exam performed earlier in the day. Findings are suspicious for perforated viscus
--- NOTE | 2024-06-11 10:47 | CT_ITS ---
PROCEDURE INFORMATION: Exam: CTA Abdomen and Pelvis With Contrast Exam date and time: 06/11/2024 11:17 AM Age: 74 years old Clinical indication: Abdominal pain; Generalized; Additional info: Refractory chest abd pelv pain TECHNIQUE: Imaging protocol: Computed tomographic angiography of the abdomen and pelvis with contrast. Exam focused on the arteries. 3D rendering (Not supervised by radiologist): MIP and/or 3D reconstructed images were created by the technologist. Radiation optimization: All CT scans at this facility use at least one of these dose optimization techniques: automated exposure control; mA and/or kV adjustment per patient size (includes targeted exams where dose is matched to clinical indication); or iterative reconstruction. Contrast material: ISOVUE 370; Contrast volume: 80 ml; Contrast route: INTRAVENOUS (IV); COMPARISON: CT ABDOMEN PELVIS WO CON 06/11/2024 10:05 AM FINDINGS: Pulmonary arteries: Atherosclerotic change of the abdominal vasculature. Aorta: No aortic aneurysm. No aortic dissection. Celiac trunk and mesenteric arteries: No occlusion or significant stenosis. Renal arteries: No occlusion or significant stenosis. Right iliac arteries: No occlusion or significant stenosis. Left iliac arteries: No occlusion or significant stenosis. Liver: Numerous cystic lesions throughout the liver. Gallbladder and biliary ducts: Gallbladder is surgically removed Pancreas: Unremarkable. No mass. No ductal dilation. Spleen: Unremarkable. No splenomegaly. Adrenal glands: Unremarkable. No mass. Kidneys and ureters: Numerous cystic lesions in the kidneys. No hydronephrosis. Stomach and bowel: No evidence of bowel obstruction. Free air in the anterior upper abdomen. The source of the air may be the stomach or transverse colon. Appendix: No evidence of appendicitis. Intraperitoneal space: Moderate amount of pneumoperitoneum has developed in the interval when compared to the prior exam. Findings are consistent with perforated viscus. The source may be the stomach or the transverse colon. Lymph nodes: Unremarkable. No enlarged lymph nodes. Urinary bladder: Unremarkable. No mass. Reproductive: Fibroid change of the uterus. Bones/joints: Postop surgical changes of the lumbar spine. Soft tissues: Unremarkable. Other findings: Small amount of fluid in the dependent pelvis. IMPRESSION: 1. Interval development of moderate amount of pneumoperitoneum when compared to the most recent examination. Findings are suggestive of perforated viscus. The exact source is not entirely visible. The stomach or transverse colon may be the source. Small amount of free fluid in the abdomen. 2. Other chronic findings as described previously
[2024-06-11] MEDS: BELLADONNA ALKALOIDS 60 ML ML PO (10:50)
--- NOTE | 2024-06-11 10:53 | PC.NURSE ---
dr huff at bedside to reevaluate pt
[2024-06-11 10:59] LABS: HIV (1&2) Antibody Rapid NONREACTIVE (NONREACTIVE)
--- NOTE | 2024-06-11 11:08 | PC.NURSE ---
pt to ct
[2024-06-11] MEDS: IOPAMIDOL-370 (76%);100ML BOTTLE 80 ML IV (11:25)
[2024-06-11] MEDS: SODIUM CHLORIDE 0.9% 10ML SYR (RAD ONLY) 10 ML IV (11:25)
[2024-06-11] MEDS: 0.9 % SODIUM CHLORIDE 50 ML VIAL IV (11:25)
[2024-06-11] MEDS: CEFEPIME HCL 2 GM in 0.9 % SODIUM CHLORIDE 100 ML IV (11:54)
[2024-06-11] MEDS: METRONIDAZ/SOD CHL 500 MG/100 ML PIGGYBACK 100 MG IV (12:01)
--- NOTE | 2024-06-11 12:03 | PC.NURSE ---
Called [facility] to possibly transfer patient per Dr. Eli. Dr. Eli is currently on the phone talking to general surgery.
[2024-06-11] MEDS: FENTANYL 100MCG/2ML VIAL 50 MCG IV (12:06)
--- NOTE | 2024-06-11 12:23 | PC.NURSE ---
Called report to NICHOLAS MANZO RN
[2024-06-11 12:54] VITALS: BP 145/80; PULSE 85; RESP 20; TEMP 36.8; O2SAT 98
[2024-06-13 05:16] LABS: HCV Ab Non Reactive (Non Reactive)
== END 2024-06-11 12:57 | disposition other institution (70) ==
PROVIDERS: Emergency Provider Student in an Organized Health Care Education/Training Program; PCP Internal Medicine Adolescent Medicine
DX: R10.11 Right upper quadrant pain (principal); R10.31 Right lower quadrant pain; R06.02 Shortness of breath; R19.8 Other specified symptoms and signs involving the digestive system and abdomen; N18.4 Chronic kidney disease, stage 4 (severe); Z99.2 Dependence on renal dialysis
CPT/HCPCS: 96374; 96375; 71045; 71275; 74174; 74176; 80053; 83605; 83690; 84484; 85007; 85014; 85018; 85048; 85049; 86803; 87389; 93005; 99291; J1171; J2270; J2405; J3010; Q9967

== ENCOUNTER 2024-07-01 09:43 | Outpatient (CLI) | payer MEDICARE, SELFPAY ==
[2024-07-02 14:21] LABS: H. pylori Stool Ag, EIA Negative (Negative)
== END 2024-07-01 23:59 | disposition home or self-care (01) ==
LOC: LAB 09:45
PROVIDERS: PCP Internal Medicine Adolescent Medicine; Visit Provider Surgery Surgical Critical Care
DX: K25.1 Acute gastric ulcer with perforation (principal); K30 Functional dyspepsia; Z13.810 Encounter for screening for upper gastrointestinal disorder
CPT/HCPCS: 87338

== ENCOUNTER 2024-08-01 12:45 | Outpatient (CLI) | payer MEDICARE, SELFPAY ==
--- NOTE | 2024-08-01 12:49 | CA_ITS ---
APPROVED REPORT EXAM: Comprehensive 2D, Doppler, and color-flow Echocardiogram Heat Treater Apprentice: MEENA Villagran, RVS Ht: 5 ft 5 in Wt: 248lbs BSA: 2.17 BP: 165/94 mmHg Indications: New Afib, post abdominal surgery, WONG, CHF, DM, HTN, HLD, Plapitations, SOA, CKD 2D Dimensions IVSd 1.09 cm F: 0.6-1.0 LVEF (Visual) 48.00 % PWd 1.07 cm F: 0.6 - 1.0 LA Volume 112.30 mL LVDd 5.68 cm F: 3.9 - 5.3 LA Volume Index 51.219886 mL/m2 (M/F) 16-34 LVDs 4.29 cm F: 2.2 - 3.5 EF AP4 43.30 % Aortic Root 3.43 cm F: 2.7 - 3.3 GL Strain -11.0 % Left Atrium 3.91 cm F: 2.7 - 3.8 RVID Base (AP4) 3.22 cm (M/F) 2.5-4.1 LVOT 2.18 cm (M/F) 1.5-2.5 M-Mode Dimensions LVDd 5.68 cm (3.5-5.7) Ao Diam 3.64 cm (2.0-3.7) LVDs 3.83 cm (3.5-5.7) IVSd 1.09 cm (0.6-1.1) PWd 1.07 cm (0.6-1.1) EF (Teich) 52.30% EPSs 0.68 cm FS 26.17% EDV (Teich) 132.40 mL TAPSE 1.84 (<1.7) ESV (Teich) 63.10 mL LV Diastology E Decel Time 136 (160-240 msec) E/A Ratio 2.6 MED E' 10.6 (>= 7 cm/sec) MED A' 7.30 cm/s E'/MED E' Ratio 13.17 (<= 14) LAT E' 12.4 (>= 10 cm/sec) LAT A' 4.90 cm/s E/LAT E' Ratio 11.26 (<= 14) Aortic Valve LVOT Max 99.0 (70-110 cm/s) MONIKA Index 1.22 cm2/m2 LVOT VTI 18.23 cm AoV Peak Cl. 149.0 (50-130 cm/s) AO Mean GR. 4.80 (<5 mmHg) AO VTI 25.8 (18-25 cm) MONIKA (VTI) 2.64 (2.5-4.5 cm2) Mitral Valve MV E Max Cl. 140.0 (40-130 cm/s) MV A Velocity 53.0 (40-130 cm/s) E/A Ratio 2.62 MV Decel. Time 136 (160-240 ms) Tricuspid Valve TR P. Velocity 272.00 cm/s RAP Estimate 10.00 mmHg RVSP 39.50 mmHg Left Ventricle The left ventricle is normal size. The left ventricular systolic function is normal. The left ventricular ejection fraction is within the normal range. There is increased LV wall thickness. There is normal LV segmental wall motion. Diastolic function is indeterminate. LVEF is 60%. Right Ventricle The right ventricle is normal size. The right ventricular systolic function is normal. Atria Left atrium is severely dilated. Right atrium is moderately dilated. Color Doppler suggests presence of left to right interatrial shunt. Aortic Valve Aortic valve is mildly thickened. There is no aortic valvular stenosis. Mild aortic regurgitation. Mitral Valve The mitral valve leaflets are mildly thickened. No evidence of mitral valve stenosis. Moderate to severe mitral regurgitation. Tricuspid Valve The tricuspid valve leaflets are thin and pliable. Mild to moderate tricuspid regurgitation. RVSP is 30-35 mmHg. Pulmonic Valve The pulmonary valve is normal in structure. Mild pulmonic regurgitation Great Vessels The aortic root is normal in size. The ascending aorta is not well-visualized. IVC is normal in size and collapses >50% with inspiration. Pericardium There is no pericardial effusion. Other Information Study Quality: Fair Conclusion Normal biventricular systolic function. Biatrial dilation. Moderate to severe MR. Mild to moderate TR. Mild AI, mild IA. Compared to prior study from 04/2024, the MR severity is now worse. In the setting of significant MR, further evaluation with RONDA and cardiac MRI cardiomyopathy protocol) to evaluate for mechanism and severity of MR is is suggested, if clinically feasible. Electronically signed by : Itzel Graf MD 08/06/2024 21:08:58
== END 2024-08-01 23:59 | disposition home or self-care (01) ==
LOC: RT 12:46
PROVIDERS: PCP Internal Medicine Adolescent Medicine; Visit Provider Internal Medicine
DX: I51.7 Cardiomegaly (principal); I34.0 Nonrheumatic mitral (valve) insufficiency; I36.1 Nonrheumatic tricuspid (valve) insufficiency; I35.1 Nonrheumatic aortic (valve) insufficiency; I37.1 Nonrheumatic pulmonary valve insufficiency; I48.91 Unspecified atrial fibrillation
CPT/HCPCS: 93306

== ENCOUNTER → 2024-08-10 14:46 | Day surgery (SDC) | payer MEDICARE, SELFPAY ==
--- NOTE | 2024-08-10 | CA_ITS ---
APPROVED REPORT Exam: Pharmacologic Technologist: Karolyn Schilling Stress Test Details Test: Lexiscan Reason for pharmacologic stress test: physical limitation. HR Resting HR: 138 bpm Max Heart Rate (APMHR): 144.455492 bpm Max HR Achieved: 151 bpm Target HR (85% APMHR): 122.701800 bpm % of APMHR: 104.86 Recovery HR: 151 bpm BP Resting BP: 124.0/58.0 mmHg Max BP: 155.0/80.0 mmHg Recovery BP: 128.0/47.0 mmHg ECG Resting ECG: Afib, RVR, leftward axis, ST-T abns, cannot R/O old septal TX Stress ECG Conclusion Symptoms: Mild SOA & head discomfort. No CP. Arrhythmias/Ectopy: Afib with RVR throughout. ST-T Changes: No significant changes. Conclusion: Unremarkable Lexiscan stress. Electronically signed by : Itzel Graf MD 08/16/2024 11:04:17
--- NOTE | 2024-08-10 11:41 | NM_ITS ---
APPROVED REPORT Exam: Nuclear Stress Test Indication: soa..palpiations Patient Location: Outpatient Stress Tech: Karolyn Morgan ND Tech:EDWIN Galeano RT(R)(N) Ht: 5 ft 5 in Wt: 240 lbs HR: 138 bpm BP: 124/58 mmHg BSA: 2.14 m2 TID: 1.06 BMI: 39.9 History: soa..palpiations Procedure: Patient received 0.4 mg of intravenous Lexiscan, resting heart rate 138 bpm, resting blood pressure 124/58 mmHg, with Lexiscan maximum heart rate achieved was 141 bpm which is 85 % of the maximum predicted heart rate and blood pressure was 155/80 mmHg. With Lexiscan, patient denied any complaint of chest pain. The patient was not able to lay on her abdomen for prone images. Cardiac Stress and Resting SPECT Images: Cardiac Stress and Resting SPECT images were obtained using technetium 99m Myoview 31.4 mCi stress and 9.91 mCi at rest. The patient could not lie on her abdomen. Therefore, prone stress imaging could not be performed. This may affect the diagnostic interpretation of the study findings. Resting and stress imaging in supine positions demonstrate a medium-sized, moderate, predominantly fixed perfusion defects in the inferior, inferoseptal, inferolateral LV, and lateral LV montes. There is a region of reversibility towards the basal lateral LV wall. Gated imaging demonstrates moderate reduction in LV systolic function. There is severe hypokinesis of the inferior and inferoseptal LV montes. LVEF is 33% (note this may be inaccurate in the setting of AFib/RVR). Conclusion: Medium-sized, moderate, predominantly fixed perfusion defects in the inferior, inferoseptal, inferolateral LV, and lateral LV montes. There is a region of reversibility towards the basal lateral LV wall. Gated imaging demonstrates moderate reduction in LV systolic function. There is severe hypokinesis of the inferior and inferoseptal LV montes. LVEF is 33% (note this may be inaccurate in the setting of AFib/RVR). Electronically signed by : Itzel Graf MD 08/16/2024 10:52:04
[2024-08-10] MEDS: SODIUM CHLORIDE 0.9% 10ML SYR (RAD ONLY) 10 ML IV ×2 (13:26→13:27)
[2024-08-10] MEDS: ISOTOPE MYOVIEW (PER STUDY) 1 DOSE IV (13:26)
[2024-08-10] MEDS: REGADENOSON 0.4MG/5ML SYRINGE 0.4 MG IV (13:26)
--- NOTE | 2024-08-10 13:56 | CA_ITS ---
APPROVED REPORT EXAM: Comprehensive 2D, Doppler, and color-flow Echocardiogram Reinsurance Claims Analyst: Becky Gudino RT(R) Ht: 5 ft 5 in Wt: 248lbs BSA: 2.17 BP: 157/82 mmHg Rhythm: Atrial Fibrillation Indications: Afib, CM, MR, DM, SOA Echo Enhancing Agent Indication: Rule out thrombus Agent(s) / Amount(s) Used: Definity 2 cc Procedure After obtaining informed consent, patient underwent transesophageal echo in the OP Surgery Suite. Type of Sedation : MAC Sedation start time: 17:00 Case end Time: 17:15 Transesophageal probe was inserted and advanced into esophagus without difficulty by Dr. Jose Graf. The RONDA was performed without complications. Synchronized Cardioversion acheived with 200 Joules after 2 attempt(s). Rhythm following Synchronized Cardioversion: Normal Sinus Rhythm Throughout the procedure, the blood pressure, pulse oximetry, cardiac rhythm, and rate were monitored. The patient tolerated the procedure without adverse effects. Recovery from conscious sedation was uneventful and vital signs were stable. Left Ventricle The left ventricle is normal size. The systolic function is reduced. There is increased LV wall thickness. There is mild global hypokinesis present. LVEF is 40%. Right Ventricle The right ventricle is normal size. The right ventricular systolic function is normal. Atria The left atrium is dilated. The right atrium is dilated. Spontaneous contrast is noted in the left atrium and the left atrial appendage. Administration of ultrasound enhancing agent demonstrates full opacification of the left atrial appendage with no evidence of filling defect. The findings rule out ROMEO thrombus. The right atrium size is normal. Interatrial septum is intact without evidence of ASD or PFO. Aortic Valve The aortic valve is mildly thickened. The aortic valve is trileaflet. There is no aortic valvular stenosis. Mild aortic regurgitation. Mitral Valve The mitral valve leaflets are mildly thickened. No evidence of mitral valve stenosis. Moderate to severe mitral regurgitation is present (grade 3+). The MR jet is centrally directed. The mechanism of MR is likely functional (Jane class IIIb). Tricuspid Valve The tricuspid valve leaflets are thin and pliable. Mild tricuspid regurgitation. RVSP is 45 mmHg plus RA pressure. Pulmonic Valve The pulmonary valve is normal in structure. Trace pulmonic regurgitation. Great Vessels The aortic root is normal in size. The ascending aorta is normal in size. Pericardium There is no pericardial effusion. Other Information Study Quality: Fair Conclusion LV systolic function is reduced (LVEF 40%). Moderate to severe MR. Mild AI. Mild TR. No evidence of LA or ROMEO thrombus. When compared to recent TTE from 08/01/2024, the LVEF is reduced. Once RONDA demonstrated no evidence of thrombus, the patient underwent DCCV after which she converted from atrial fibrillation/RVR to normal sinus rhythm after 2 attempts (150J then 200J). Postprocedure, she continued to be in normal sinus rhythm with occasional PACs. She was then transferred to the recovery suite in stable condition. Electronically signed by : Itzel Graf MD 08/10/2024 23:43:25
[2024-08-10 14:54] VITALS: BMI 41.2
--- NOTE | 2024-08-10 15:09 | ECG_ITS ---
APPROVED REPORT Exam: Resting ECG HR:150 bpm ECG Measurements Heart Rate 150 AXES QRSd 101 QRS 7 QT 304 T 156 QTc 389 Conclusion ATRIAL FIBRILLATION WITH RAPID VENTRICULAR RESPONSE ANTEROSEPTAL MYOCARDIAL INFARCTION , PROBABLY OLD [40+ ms Q WAVE IN V1-V4] MODERATE T-WAVE ABNORMALITY, CONSIDER LATERAL ISCHEMIA [-0.1+ mV T-WAVE IN I/aVL/V5/V6] CRITICAL TEST RESULT UNCONFIRMED REPORT Electronically signed by : Shine Bassett MD 08/10/2024 16:09:22
[2024-08-10 15:16] VITALS: BP 161/73; PULSE 130; RESP 20; TEMP 36.2; O2SAT 93
[2024-08-10 15:30] LABS: Chloride 100 mmol/L (98-107); Potassium 3.7 mmoL/L (3.5-5.1); Sodium 136 mmol/L (136-145)
[2024-08-10 15:33] LABS: Anion Gap 5.7 mEq/L (5-15); Blood Urea Nitrogen 29 mg/dl (7-17); Calcium 9.6 mg/dl (8.4-10.2); Carbon Dioxide 34 mmol/L (22.0-30.0); Creatinine Clearance Estimated 11 mL/min (50-200); Estimated Glomerular Filt Rate 11 ml/min (>60); GFR (African American) 13 ML/MIN (>60); Glucose 115 mg/dl (74-100)
[2024-08-10 15:36] LABS: Hematocrit 34.2 % (37.0-47.0); Hemoglobin 10.6 g/dL (12.2-16.2); Red Blood Count 3.42 M/mm3 (4.20-5.40); White Blood Count 8.6 K/mm3 (4.8-10.8)
[2024-08-10 15:37] LABS: Mean Platelet Volume 10.4 fl (7.4-10.4); Platelet Count 254 K/mm3 (142-424); Red Cell Distribution Width 17.2 % (11.5-17.5)
[2024-08-10 15:38] LABS: Basophils % 0.5 % (0.1-2.0); Eosinophils # 0.2 K/mm3 (0.0-0.4); Eosinophils % 1.9 % (0.1-12.0); Lymphocytes # 1.6 K/mm3 (0.7-4.5); Lymphocytes % 19.2 % (10-50); Monocytes # 0.7 K/mm3 (0.1-1.0); Monocytes % 8.2 % (1.7-9.3); Neutrophils % 69.7 % (37.0-80.0)
[2024-08-10 15:44] LABS: INR 0.97 (0.9-1.1); Prothrombin Time 10.9 seconds (10.1-12.5)
--- NOTE | 2024-08-10 16:12 | P.PNANES_ITS ---
[facility] Disclaimer: The information contained in this section may have been updated after the patient was seen, as this information can be updated by other users. Medical History Encounter for kidney dialysis Cervical disc disorder Atrial fibrillation with RVR Non-ischemic cardiomyopathy CKD (chronic kidney disease) stage 4, GFR 15-29 ml/min Dizziness Edema Dyspnea Hypertensive heart disease Diabetes mellitus WONG (obstructive sleep apnea) CKD (chronic kidney disease) stage 2, GFR 60-89 ml/min Pulmonary hypertension CHF (congestive heart failure) Surgical History History of cervical discectomy H/O exploratory laparotomy Family History Other No significant family history Social History Smoking Status: Never smoker alcohol intake: never substance use type: denies use current occupational status: retired Travel in the last 8 weeks: None household members: spouse housing: house current occupational exposures/hazards: No caffeine: Yes Have you lived/traveled outside [place] in past 30 days?: No Contact w/someone who lives/traveled outside [place] past 30 days?: No Exposure to someone with infectious disease in past 14 days?: No Do you have a fever (greater than 100.4 F or 38 C)?: No Have you tested positive for COVID-19: No Exposed to someone with COVID-19 in past 14 days?: No Do you have a sore throat?: No Do you have a cough?: No Do you have any weakness?: No Do you have any diarrhea?: No Are you experiencing any unusual bleeding?: No Do you have any muscle aches/pain?: No Do you have any abdominal pain?: No Are you experiencing loss of taste or smell?: No [facility] Anesthesia Checklist Patient Identification Patient Identification: Arm Band, Family and Verbal (Name & ) Structural Data Admitted From: Home Planned Operative Procedure/s: RONDA w/Cardioversion Consent for Planned Operative Procedure(s) Verified: Yes Verified Documents: Surgical Consent and History and Physical NPO Status Verified Time NPO: 14:30 (Pepsi & water) Chart Verification Results Verified: CBC, BMP, PT, PTT, INR, ECG and Chest Xray Additional verifications Patient : No Anesthesia Reactions: No Hx Blood Transfusions: No Blood Transfusion Reaction: No Cardiovascular Assessment Pulse Rhythm: Irregular Peripheral Edema: Yes (4+ LUISA LE) Airway Assessment Mallampati Score:: Class II C-Spine Mobility Assessed: Yes (FROM demonstrated) TMJ Mobility Assessed: Yes Dentition: Poor Dentition (Noting loose per pt.) Neurological Assessment Level of Consciousness: Awake, Alert, Appropriate and Follows Commands Hx Seizures: No Numbness or tingling in extremities: No Anesthesia Plan Anesthesia Risk discussed: Yes Anesthesia Plan: Verified ASA Class: IV Anesthesia Type: MAC
[2024-08-10 16:52] VITALS: O2SAT 98
[2024-08-10 17:14] VITALS: BP 137/71; PULSE 96; RESP 16; TEMP 36.4; O2SAT 98
--- NOTE | 2024-08-10 17:17 | SUR.OPER ---
1706: shocked at 150j 1707: shocked at 200j
--- NOTE | 2024-08-10 17:18 | P.PNANES_ITS ---
[facility] Anesthesia Record Part I Anesthesia Record I Intake, IV Amount: 300 Hydration: Adequate Estimated blood loss (mL): 0 Urine output (mL): 0 Blood Products used (#): none Blood Pressure: 137/71 SaO2: 97 Pulse Rate: 95 Airway Patency: Patent Respiratory Rate: 20 Temperature: 97.5 F Patient is:: Awake, Drowsy, Nasal O2 (4L NC) and Stable Stable to PACU at:: 17:19
[2024-08-10 17:20] VITALS: BP 137/71; PULSE 95; RESP 20; TEMP 36.4; O2SAT 97
--- NOTE | 2024-08-10 17:21 | ECG_ITS ---
APPROVED REPORT Exam: Resting ECG HR:96 bpm ECG Measurements Heart Rate 96 AXES PA 173 P 41 QRSd 109 QRS -23 QT 363 T -20 QTc 417 Conclusion SINUS RHYTHM WITH OCCASIONAL SUPRAVENTRICULAR PREMATURE COMPLEXES VOLTAGE CRITERIA FOR LVH [MEETS CRITERIA IN ONE OF: R(aVL), S(V1), R(V5), R(V5/V6)+S(V1)] POSSIBLE ANTEROSEPTAL MYOCARDIAL INFARCTION , PROBABLY OLD [30 ms Q WAVE IN V1-V4] ABNORMAL ECG UNCONFIRMED REPORT Electronically signed by : Shine Bassett MD 08/13/2024 09:13:25
[2024-08-10 17:24] VITALS: BP 139/79; PULSE 98; RESP 16; O2SAT 94
[2024-08-10 17:34] VITALS: BP 146/78; PULSE 91; RESP 16; O2SAT 97
--- NOTE | 2024-08-10 17:55 | SUR.PHASEII ---
1737 - Dr. Bassett notified of pt's leg. Pt states that she believes it is worse than when Dr. Bassett seen it first on Wednesday. MD notified of findings, left leg noted to be red, weeping and warm to touch. +2 pedal pulses noted bilaterally. T/O for 300 mg Cefdinir daily for 7 days. RB+V. Order called into [facility].
== END | disposition home or self-care (01) ==
PROVIDERS: PCP Internal Medicine Adolescent Medicine; Visit Provider Internal Medicine
DX: I48.91 Unspecified atrial fibrillation (principal); I13.0 Hypertensive heart and chronic kidney disease with heart failure and stage 1 through stage 4 chronic kidney disease, or unspecified chronic kidney disease; I42.9 Cardiomyopathy, unspecified; E11.9 Type 2 diabetes mellitus without complications; N18.4 Chronic kidney disease, stage 4 (severe); I50.32 Chronic diastolic (congestive) heart failure; R06.09 Other forms of dyspnea; Z79.01 Long term (current) use of anticoagulants; Z79.899 Other long term (current) drug therapy
CPT/HCPCS: 78452; 80048; 85025; 85610; 92960; 93005; 93017; 93018; 93270; 93312; 93319; A9502; J2785